=== PATIENT | male | born 1950 | race Caucasian/White ===

== ENCOUNTER 2020-11-15 12:00 | Emergency (ER) | payer MEDICARE, OTHER, SELFPAY ==
--- NOTE | 2020-11-15 12:20 | ED.ABDPAIN ---
HPI - Abdominal Pain General Chief Complaint: Abdominal Pain Stated Complaint: abdominal pain Time Seen by Provider: 11/15/20 12:20 Source: patient Mode of arrival: ambulatory Limitations: no limitations History of Present Illness HPI narrative: David Connelly is a 70 yo male with a PMH of prostate cancer and radiation, high cholesterol, GERD, seasonal allergies, diabetes , HTN, who comes to [facility] for evaluation of right lower quadrant pain that started 2 days ago his twinge in his today has intensified to a 9 out of 10. Patient has no urinary symptoms there has been no change in his bowel movements he is not been vomiting nor is he having nausea Related Data Home Medications Medication Instructions Recorded Confirmed pen needle, diabetic 32 gauge x #50 each 07/07/19 08/21/20 1/ Vitamin D3 07/08/19 08/21/20 vitamin B complex cap 07/08/19 08/21/20 blood sugar diagnostic #10 each 08/10/19 08/21/20 enzalutamide 40 mg capsule 160 mg PO DAILY 12/14/19 08/21/20 leuprolide (6 month) 45 mg 45 mg IM [id number] 12/14/19 08/21/20 intramuscular syringe kit Allergies Allergy/AdvReac Type Severity Reaction Status Date / Time acetaminophen Allergy Mild Unknown Verified 11/15/20 12:06 hydrocodone Allergy Mild UN KNOWN Verified 11/15/20 12:06 Review of Systems Review of Systems: Narrative: CONSTITUTIONAL: Denies fever, chills, sweats. EYES: Denies visual changes, redness, discharge. ENT: Denies rhinorrhea, congestion, sore throat, otalgia. CARDIOVASCULAR: Denies chest pain, palpitations, edema. RESPIRATORY: Denies dyspnea, wheezing, cough GASTROINTESTINAL: Has abdominal pain, no nausea, vomiting, diarrhea. GENITOURINARY: Denies dysuria, hematuria, abnormal discharge SKIN: Denies rash or itching. NEUROLOGIC: Denies numbness, or focal weakness. PSYCHIATRIC: Denies anxiety or depression. [facility] Past Medical History Medical History Anemia Arthritis Diabetes GERD (gastroesophageal reflux disease) Hearing loss High cholesterol Hypercalcemia Insomnia Iron deficiency anemia, unspecified Lymphedema Prostate cancer Psoriasis Renal insufficiency, mild Vision loss Family History Family History Other Hypertension Social History Social History Smoking status: Never smoker Alcohol intake: current Comments At time of signature, I agree with nursing past medical, surgical, social and family history. There is no relevant family history pertinent to the presenting complaint. Exam Narrative: Exam Narrative: GENERAL: This is a well-nourished, well-developed patient, in moderate distress when walking, uses cane, older appearing gentleman HEAD: normocephalic, atraumatic. EYES: PERRL. Sclera clear/white. Vision is grossly intact. EARS: External ears normal, auditory canals clear and without drainage, TMs normal without perforation. Hearing grossly intact. NOSE: External nose normal without nasal discharge, nares without redness, no rhinorrhea. THROAT: Mucous membranes moist, posterior pharynx NECK: Neck supple, non-tender CARDIOVASCULAR: Regular rate and rhythm without murmurs, gallops, or rubs. RESPIRATORY: Clear to auscultation. Breath sounds equal bilaterally. No wheezes, rales, or rhonchi. GASTROINTESTINAL: Abdomen soft, non-tender, has pain lying down or sitting up has a has mesenteric irritation; pain standing up and lower right abdomen not in leg or back SKIN: warm, intact with no suspicious lesions or rash, good texture and turgor. NEURO: awake, alert, and oriented to person, place and time. There were no obvious focal neurologic abnormalities. Steady gait EXTREMITIES: Normal range of motion. BACK: Nontender without deformity Course Course Emergency Course: 70-year-old male came to [facility] with multiple comorbidities for evaluation of right
[2020-11-15 12:29] VITALS: BP 172/68; PULSE 75; RESP 16; TEMP 36; O2SAT 100
[2020-11-15 12:59] VITALS: BP 172/68; PULSE 75; RESP 16; TEMP 36; O2SAT 100
== END 2020-11-15 12:55 | disposition short-term general hospital (02) ==
PROVIDERS: Emergency Provider Nurse Practitioner; PCP Family Medicine
DX: R10.31 Right lower quadrant pain (principal); M19.90 Unspecified osteoarthritis, unspecified site; E11.9 Type 2 diabetes mellitus without complications; K21.9 Gastro-esophageal reflux disease without esophagitis; E78.00 Pure hypercholesterolemia, unspecified; Z85.46 Personal history of malignant neoplasm of prostate; Z92.3 Personal history of irradiation
CPT/HCPCS: 81003; 99212; G0463

== ENCOUNTER 2020-11-15 13:18 | Emergency (ER) | payer MEDICARE, OTHER, SELFPAY ==
[2020-11-15] VITALS (17 sets, daily range): BP systolic 148–165; BP diastolic 52–78; PULSE 61–72; RESP 12–19; TEMP 35.9; O2SAT 96–100
--- NOTE | ~2020-11-15 | CT_ITS ---
EXAMINATION: CT abdomen pelvis w con DATE: 11/15/2020 14:22 INDICATION: Right lower quadrant pain for 2 days TECHNIQUE: Computed tomography (CT) of the abdomen and pelvis was performed with 100 cc Omnipaque 350 intravenous contrast. The dose-length product was 1322.82 mGy-cm. Automated exposure control and ite rative reconstruction technique were employed. COMPARISON: CT dated 02/20/2027 2. FINDINGS: There is right basilar atelectasis. Heart size is normal. No significant pleural or pericar dial effusion. No significant vascular abnormality. Fatty infiltration of the liver. The spleen, pancreas, adrenal glands and right kidney are unremarkab le. There is a 4 cm left renal cyst. No significant vascular abnormality. There are radiation therapy implant seeds in the prostate bed. No lymphadenopathy. Nonobstructive bowel gas pattern. There are s acral insufficiency fractures. There is fusion at L3-L5. There is severe lumbar spondylosis. Elevated right diaphragm. No free air or free fluid. There are gallstones. IMPRESSION: 1. No acute abdominal abnormality. 2: Bilateral sacral insufficiency fractures. 3: Cholelithiasis. Reviewed, dictated and finalized at location A.
--- NOTE | ~2020-11-15 | XR_ITS ---
EXAMINATION: XR chest 1V 11/15/2020 14:29 INDICATION: Hypertension. Bradycardia. PROCEDURE: AP view of the chest COMPARISON: 09/14/2007 FINDINGS: The lungs are clear. The cardiomediastinal silhouette is within normal limits. There are no pleural effusions. There is no pneumothorax suspected. There is advanced osteoarthritis of the l eft glenohumeral joint. IMPRESSION: 1: NO ACUTE CARDIOPULMONARY DISEASE. Reviewed, dictated and finalized at location A.
--- NOTE | 2020-11-15 13:51 | ED.ABDPAIN ---
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 Worse with standing, better laying down flat. Patient denies any fever, nausea, vomiting, diarrhea, constipation, urinary symptoms, radiation of pain. Patient denies any history of abdominal surgery. History of prostatic cancer status post chemotherapy, radiation therapy, currently on hormonal therapy. History of diabetes, hypertension, hyperlipidemia, sleep apnea. Also history of spinal fusion years ago patient does not smoke or drink. Related Data Home Medications Medication Instructions Recorded Confirmed pen needle, diabetic 32 gauge x #50 each 07/07/19 08/21/20/ Vitamin D3 07/08/19 08/21/20 vitamin B complex 1 cap PO DAILY 07/08/19 08/21/20 blood sugar diagnostic #10 each 08/10/19 08/21/20 enzalutamide 40 mg capsule 160 mg PO DAILY 12/14/19 11/15/20 leuprolide (6 month) 45 mg 45 mg IM [id number] 12/14/19 11/15/20 intramuscular syringe kit Allergies Allergy/AdvReac Type Severity Reaction Status Date / Time acetaminophen Allergy Mild Unknown Verified 11/15/20 12:06 hydrocodone Allergy Mild UN KNOWN Verified 11/15/20 12:06 Review of Systems Review of Systems: Narrative: CONSTITUTIONAL: Denies fever, chills, or sweats. EYES: Denies visual changes, redness, or discharge. ENT: Denies rhinorrhea, congestion, sore throat, or otalgia. CARDIOVASCULAR: Denies chest pain, palpitations, or edema. RESPIRATORY: Denies cough or dyspnea. GASTROINTESTINAL: Denies abdominal pain, nausea, vomiting, or diarrhea. GENITOURINARY: Denies dysuria or hematuria. SKIN: Denies rash or itching. MUSCULOSKELETAL: Denies back pain, joint pain, or myalgia. NEUROLOGIC: Denies headache, numbness, or weakness. PSYCHIATRIC: Denies anxiety or depression. [facility] Past Medical History Medical History Anemia Arthritis Diabetes GERD (gastroesophageal reflux disease) Hearing loss High cholesterol Hypercalcemia Insomnia Iron deficiency anemia, unspecified Lymphedema Prostate cancer Psoriasis Renal insufficiency, mild Vision loss Family History Family History Other Hypertension Social History Social History Smoking status: Never smoker Alcohol intake: current Exam Narrative: Exam Narrative: General appearance: Well-developed, well-nourished Skin: Normal color Head: Normocephalic, nontraumatic Eyes: Clear conjunctiva ENT: Oropharynx normal, ears normal, nose normal Neck: Supple, nontender Chest and respiratory: Airway patent, no respiratory distress, no accessory muscle use Heart: Bradycardia Abdomen: Soft, nontender, no organomegaly, quiet bowel sounds Vascular: Normal peripheral pulses, normal capillary refill. 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
[2020-11-15 13:53] LABS: Basophils Percent Auto 0.4 % (0.2-1.2); Eosinophils Absolute Auto 0.2 K/mm3 (0-0.3); Eosinophils Percent Auto 4.3 % (0-4.4); Hematocrit 36.1 % (42.0-52.0); Hemoglobin 11.8 g/dL (14.0-18.0); Immature Granulocyte Absolute 0.05 K/mm3 (0.00-0.031); Immature Granulocyte Percent A 0.9 % (0-0.5); Lymphocytes Absolute Auto 0.57 K/mm3 (0.9-3.2); Lymphocytes Percent Auto 10.3 % (18.3-44.2); Mean Corpuscular HGB Conc 32.7 g/dl (32-36); Mean Corpuscular Hemoglobin 29.5 pg (26-34); Mean Corpuscular Volume 90.3 fl (80-100); Mean Platelet Volume 8.8 fl (7.4-10.4); Monocytes Absolute Auto 0.6 K/mm3 (0.1-0.6); Monocytes Percent Auto 9.9 % (2.6-8.5); Neutrophils Absolute Auto 4.1 K/mm3 (1.3-6.7); Neutrophils Percent Auto 74.2 % (45.5-73.1); Platelet Count Result 210 k/mm3 (150-375); Red Cell Distribution Width 13.8 % (11.5-14.5); White Blood Count 5.5 K/mm3 (4.5-10.0)
--- NOTE | 2020-11-15 13:55 | ECG_ITS ---
Measurements Intervals [place] Rate: 63 P: 25 MT: 151 QRS: -12 QRSD: 94 T: 15 QT: 396 QTc: 408 Interpretive Statements SINUS RHYTHM VOLTAGE CRITERIA FOR LVH MINIMAL Q WAVES- HIGH LATERAL LEADS BORDERLINE ECG Electronically Signed On 11-15-2020 14:31:01 CDT by Tariq Grayson D.O.
[2020-11-15 14:04] LABS: Alanine Aminotransferase 22 U/L (4-50); Albumin Level 4.1 g/dL (3.5-5.1); Alkaline Phosphatase 59 U/L (38-126); Anion Gap 9 mmol/L (8-16); Aspartate Amino Transferase 27 U/L (17-59); Bilirubin,Total 0.4 mg/dL (0.2-1.3); Blood Urea Nitrogen 27 mg/dL (9-20); Calcium 9.5 mg/dL (8.4-10.2); Carbon Dioxide 27 mmol/L (22-30); Chloride 103 mmol/L (98-107); Estimated CRCL calculation 55 ml/min; Estimated Glomerular Filt Rate 54; Glucose 132 mg/dL (75-110); Lipase 309 U/L (23-300); Sodium 139 mmol/L (137-145)
[2020-11-15] MEDS: SODIUM CHLORIDE 0.9% IV 1,000 ML 999 ML IV CONT (14:38)
[2020-11-15 16:20] LABS: Add Urine Microscopic? YES; Appearance Urine Clear (Clear); Bilirubin Urine Negative (Negative); Blood Urine Negative (Negative); Color Urine Straw (Yellow); Glucose Urine UA Negative (Negative); Ketones Urine Negative (Negative); Leukocyte Esterase Ur Negative LEU/UL (Negative); Nitrate Urine Negative (Negative); Protein Urine Negative (Negative); RBC Urine 0-2 /hpf (0-2); Specific Grav Ur 1.021 (1.001-1.035); Urobilinogen Urine Negative mg/dL (<2.0); WBC Urine 0-3 /hpf
== END 2020-11-15 17:05 | disposition home or self-care (01) ==
PROVIDERS: Emergency Provider Emergency Medicine; PCP Family Medicine
DX: R10.31 Right lower quadrant pain (principal); D64.9 Anemia, unspecified; M19.90 Unspecified osteoarthritis, unspecified site; E11.9 Type 2 diabetes mellitus without complications; K21.9 Gastro-esophageal reflux disease without esophagitis; E78.5 Hyperlipidemia, unspecified
CPT/HCPCS: 36415; 71045; 74177; 80053; 81001; 81003; 83690; 84443; 85025; 93005; 96360; 99284; J7030; Q9967

== ENCOUNTER 2020-12-17 17:19 | Outpatient (CLI) | payer MEDICARE, OTHER, SELFPAY ==
--- NOTE | ~2020-12-17 | MR_ITS ---
EXAMINATION: MR shoulder LT wo con DATE: 12/17/2020 18:19 INDICATION: Left shoulder pain TECHNIQUE: Magnetic resonance imaging (MRI) of the left shoulder was performed without intravenous co ntrast. Sequences included axial PD-weighted FS FSE, coronal oblique PD-weighted FS FSE, coronal obli que T2-weighted FS FSE, sagittal PD-weighted FS FSE, and sagittal T1-weighted SE. COMPARISON: None. FINDINGS: Coracoacromial arch: The acromion undersurface is curved in morphology (type II). The coracoacromial ligament is normal. M ild to moderate acromioclavicular osteoarthritis with small inferiorly directed osteophytes at the la teral head of the clavicle. Rotator cuff: Mild supraspinatus and infraspinatus tendinopathy without discrete tear. The teres minor tendon is no rmal. Mild subscapularis tendinopathy with very small delaminating split tear along the cephalad less er tuberosity footplate. Normal rotator cuff muscle bulk and signal. Biceps tendon, glenoid labrum and glenohumeral cartilage: Moderate tendinopathy without discrete tear of the intra-articular long head biceps tendon. Diffuse l abral degeneration and advanced glenohumeral osteoarthritis with extensive full to near full-thicknes s cartilage loss with scattered subcutaneous articular cystic changes throughout the glenoid and peyman ral head. Small to moderate-sized marginal osteophytes about the humeral head and glenoid. Fluid: Physiologic amount of fluid in the glenohumeral joint and biceps tendon sheath. No loose osteochondra l bodies. Very small amount of fluid in the subacromial/subdeltoid bursa consistent with minimal burs itis. Bones: Bone alignment is normal. No fracture or pathologic marrow replacing process. IMPRESSION: 1. Advanced left glenohumeral osteoarthritis with diffuse degenerative tearing of the glenoid labrum. 2. Mild supraspinatus, infraspinatus and subscapularis tendinopathy with very small delaminating spli t tear at the lesser tuberosity insertion of the subscapularis tendon. 3. Moderate tendinopathy without discrete tear of the intra-articular long head biceps tendon. 4. Mild to moderate acromioclavicular osteoarthritis with minimal underlying subacromial/subdeltoid b ursitis. Reviewed, dictated and finalized at location A. IMPRESSION: 1. Advanced left glenohumeral osteoarthritis with diffuse degenerative tearing of the glenoid labrum. 2. Mild supraspinatus, infraspinatus and subscapularis tendinopathy with very s mall delaminating split tear at the lesser tuberosity insertion of the subscapu rocky tendon. 3. Moderate tendinopathy without discrete tear of the intra-articular long head biceps tendon. 4. Mild to moderate acromioclavicular osteoarthritis with minimal underlying zheng bacromial/subdeltoid bursitis.
== END 2020-12-17 17:20 | disposition home or self-care (01) ==
PROVIDERS: PCP Family Medicine; Visit Provider Orthopaedic Surgery
DX: M25.512 Pain in left shoulder (principal); M19.012 Primary osteoarthritis, left shoulder; M75.82 Other shoulder lesions, left shoulder; S46.812A Strain of other muscles, fascia and tendons at shoulder and upper arm level, left arm, initial encounter; M75.52 Bursitis of left shoulder
CPT/HCPCS: 73221

== ENCOUNTER 2020-12-27 15:13 | Outpatient (CLI) | payer MEDICARE, OTHER, SELFPAY ==
--- NOTE | ~2020-12-27 | US_ITS ---
EXAMINATION: US carotid duplex BI DATE: 12/27/2020 16:01 INDICATION: Right carotid bruit. TECHNIQUE: Grayscale, color Doppler, and pulsed Doppler images of the cervical carotid arteries were obtained. The degree of vessel stenosis is placed in one of the following categories: normal, <50%, 5 0-69%, >=70% but less than near-occlusion, near-occlusion, or total occlusion. Note that percent sten osis relative to normal distal artery lumen diameter is indirectly measured from velocity measurement s as described by Kenny, et al. Radiology 2003; 229:340-346. COMPARISON: None. FINDINGS: RIGHT: The right common carotid artery (CCA) peak systolic velocity (PSV) is 88 cm/s. The right internal car otid artery (ICA) PSV is 238 cm/s. The right ICA end-diastolic velocity (EDV) is 44 cm/s. The right I CA/CCA PSV ratio is 2.7. Grayscale and color Doppler images yield an estimate of <50% diameter reduct ion from plaque in the ICA. There is antegrade flow in the right vertebral artery. LEFT: The left CCA PSV is 79 cm/s. The left ICA PSV is 248 cm/s. The left ICA EDV is 50 cm/s. The left ICA/ CCA PSV ratio is 3.2. Grayscale and color Doppler images yield an estimate of <50% diameter reduction from plaque in the ICA. There is antegrade flow in the left vertebral artery. IMPRESSION: 1. <50% stenosis in the right internal carotid artery. 2. <50% stenosis in the left internal carotid artery. Reviewed, dictated and finalized at location A.
== END 2020-12-27 15:14 | disposition home or self-care (01) ==
PROVIDERS: PCP Family Medicine; Visit Provider Family Medicine
DX: R09.89 Other specified symptoms and signs involving the circulatory and respiratory systems (principal); I65.23 Occlusion and stenosis of bilateral carotid arteries
CPT/HCPCS: 93880

== ENCOUNTER 2021-01-04 12:30 | Outpatient (RCR) | payer MEDICARE, OTHER, SELFPAY ==
--- NOTE | 2020-12-06 11:18 | PTOPEVAL ---
PHYSICAL THERAPY EVALUATION AND PLAN OF CARE 12-06-20 The PT evaluation has been completed for the diagnosis of B LE lymphedema. The treatment plan is scheduled for 3x/week for 5 weeks. Thank you for referring David Connelly to [facility].? Please review, sign, date and return this plan of care JOSIE. I agree with and certify that the following plan of care is medically necessary. Referring Physician Date Attending Provider: Sofia Hilton APN Referring Provider: Gibson Segura MD *PT Outpatient Evaluation Document 12/06/20 10:10 S[place] (Rec: 12/06/20 11:18 SAGRARIO [id number]) Outpatient Past Medical History Past Medical History Source of Past Medical History Recalled from Previous Visit, Confirmed with Patient/Family Neurological History Hx Other Neurological Disorders Yes: neuropathy of B LE- feet Cardiovascular History Hx Hypercholesterolemia Yes: meds Hx Hypertension Yes: meds Respiratory History Hx Sleep Apnea Yes: CPAP Musculoskeletal History Hx Arthritis Yes: B shoulder arthritis Hx Back Pain Yes Hx Crutches or Walker Use Yes Query Text:If Yes, Enter Crutches, Walker, or Both in the Comment Hx Joint Replacement Yes: R TKR Hx Spinal Surgery Yes: BACK FUSION L 2-3-4 Hx Other Musculoskeletal Disorders Yes: R hip pain Hematological History Hx Anemia Yes Endocrine History Hx Diabetes Yes: good controlf HEENT History Hx Cataracts Yes: no surgery Other History Hx Cancer Yes: prostate, radiation '17; therapy for decr testosterone Hx Radiation Therapy Yes: for prostate cancer Hx Other Medical Conditions Yes: have had COVID vaccine Evaluation Information Problem Diagnosis lymphedema of B LE's Onset February 2020 Prior Level of Function Activity Level (Last 3 Months) Occupation retired Activity of Daily Living Ability Independent Indoor/Home Mobility Independent Community Mobility Independent Stairs Ability Independent Functional Cognition (Planning, Shopping Independent , Taking Medications) Cooking Yes Cleaning Yes Laundry Yes Shopping Yes Driving Yes Home Setting Home Type House Living Situation With Spouse Mobility Assistive Devices (Used Last 3 Cane,Walker, Rollator Months) Comments Additional Prior Level of Function assist with home tasks, Comments carrying and heavier tasks; indep with bathing, dressing,
--- NOTE | 2021-01-07 13:47 | PCPTNOTE ---
PHYSICAL THERAPY DISCHARGE 01-07-21 Attending Provider: Sofia Hilton NP Patient:David Connelly Date of :1950 Mr. Connelly has received a total of 12 PT sessions, for the diagnosis of B LE lymphedema, from December 06 to January 04. Circumferential measurements of LE's: from the bottom of his foot up to 72 cm: R LE is 754 cm, decreased by 24.3 cm and L LE is 753.5 cm, decreased by 51.3 cm, compared to the initial evaluation. Skin observation: His skin color is good, without any fibrosis or firmness of the tissue. Compression garments: Sam has a R and L lower leg Circaid Juxtafit [employer]entials lower leg compression garment. He is independent with it. Education: Education has been completed for skin care, compression garment, self manual lymph drainage, lymphedema diagnosis. He demonstrated a good understanding and knowledge of the information. The goals have been achieved, except circumferential measurement of the R LE. Thank you for referring Mr. Connelly to [facility]. Please review, sign, date and return this discharge summary JOSIE. I have been updated about the patient's current status and I agree with discharge from the above service at this time. Referring Physician Date
== END 2021-01-08 08:29 | disposition home or self-care (01) ==
LOC: ANHPT 12:30
PROVIDERS: PCP Family Medicine; Referring Provider Family Medicine; Visit Provider Nurse Practitioner Family
DX: I89.0 Lymphedema, not elsewhere classified (principal)
CPT/HCPCS: 29581; 97016; 97140; 97161

== ENCOUNTER → 2022-12-12 11:01 | Outpatient (CLI) | payer MEDICARE, SELFPAY ==
--- NOTE | ~2022-12-12 | DEXA_ITS ---
Bone Density Report Name: MARILYN BOX Age: 72 Sex: Male Ethnicity: White Date of : 1950 Indication: screening for osteoporosis; height loss; prior fracture; cancer; Referring Provider: YEN CUEVAS Study: Bone densitometry was performed. Exam Date: December 12, 2022 Accession number: [id number] Bone Density: Region BMD T-score Z-score Classification AP Spine (L1, L2) 1.306 2.3 3.3 Normal Femoral Neck (Left) 1.075 1.1 2.4 Normal Total Hip (Left) 1.165 0.9 1.7 Normal Femoral Neck (Right) 1.074 1.1 2.4 Normal Total Hip (Right) 1.142 0.7 1.5 Normal Total Hip Mean 1.154 0.8 1.6 Normal World Health Organization criteria for BMD impression classify patients as: Normal (T-score at or above -1.0), Osteopenia (T-score between -1.0 and -2.5), or Osteoporosis (T-score at or below -2.5). 10-year Fracture Risk: FRAX not reported because: All T-scores for Spine Total, Hip Total, Femoral Neck at or above -1.0 Prior hip or vertebral fracture Clinical Information Provided by Patient: Have had a previous hip or vertebral fracture Has had a low trauma fracture Has used the following medications: Vitamin D, med to decrease testosterone Has the following medical conditions: Cancer, prostate cancer, current treatment x 5 years Patient maximum height was 71 No regular weight bearing exercise Drinks caffeinated beverages Impression: The patient has normal bone mass. The patient has risk factors, including: previous fracture. Discussion: INCREASED RISK OF FRACTURE DUE TO HISTORY OF LOW TRAUMA FRACTURE. The patient's previous fracture puts the patient at high risk of a future fracture. In untreated patients, the risk of osteoporotic fracture increases approximately two-fold for each 1.0 SD decrease in T-score. Low bone density is not the only risk factor for fracture; also consider factors such as patient's age, frailty or poor health, risk of falling, risk of injury, previous osteoporotic fracture, family history of osteoporosis, cigarette smoking, low body weight, etc. Not everyone with a low trauma fracture has osteoporosis; osteomalacia and other metabolic bone disorders should also be considered. Patients who have osteoporosis should be evaluated for specific diseases and conditions (secondary causes) that may cause or contribute to bone loss and fracture risk. National Osteoporosis Foundation (NOF) recommends pharmacologic intervention for patients with a prior low trauma hip or vertebral fracture regardless of BMD T-score. The patient should follow a healthful lifestyle (good nutrition with adequate calcium and vitamin D, and appropriate weight-bearing exercise). Follow-Up: Consider a repeat BMD and Vertebral Fracture Assessment (VFA) exam in 2 years or sooner if medically necessary, to reassess
== END ==
PROVIDERS: PCP Family Medicine; Visit Provider Nurse Practitioner Adult Health
DX: M85.88 Other specified disorders of bone density and structure, other site (principal)
CPT/HCPCS: 77080

== ENCOUNTER 2023-02-17 09:00 | Outpatient (CLI) | payer MEDICARE, SELFPAY ==
--- NOTE | 2023-02-17 | EST_ITS ---
Patient Info Name: David Connelly Age: 72 years : 1950 Gender: Male Ht: 68 in Wt: 232 lbs BSA: 2.29 m2 HR: 60 bpm BP: 176 / 85 mmHg Heart Rhythm: Sinus Rhythm Exam Date: 02/17/2023 10:10 AM Exam Location: [facility] Stress Patient Status: Outpatient Admit Date: 02/17/2023 Staff Ordering Physician: Tariq Grayson DO Attending Provider: Tariq Grayson DO Exercise Technologist: Heide Arthur CT Exercise Physician: Tariq Grayson DO Exam Type: CA stress cuate w NM Study Info Indications R06.09 - Other forms of dyspnea A regadenoson stress test was performed. Summary 1. 1. Negative lexiscan stress test for ischemic ST changes by ECG criteria. 2. 2. Baseline hypertension. 3. 3. Nuclear scan to follow and will be reported separately. Please correlate with it. 4. 4. Patient informed of the above results. Protocol: Lexiscan Stress ECG Details Stage: REST Duration (min): 2 min : 15 sec HR (bpm): 58 SBP (mmHg): 190 DBP (mmHg): 87 Stage: REST Duration (min): 15 min : 41 sec HR (bpm): 60 SBP (mmHg): 176 DBP (mmHg): 85 Stage: STAGE 1 Duration (min): 0 min : 59 sec HR (bpm): 78 SBP (mmHg): 175 DBP (mmHg): 63 Stage: RECOVERY Duration (min): 1 min : 0 sec HR (bpm): 77 SBP (mmHg): 175 DBP (mmHg): 63 Stage: RECOVERY Duration (min): 2 min : 0 sec HR (bpm): 66 SBP (mmHg): 175 DBP (mmHg): 63 Stage: RECOVERY Duration (min): 3 min : 0 sec HR (bpm): 62 SBP (mmHg): 159 DBP (mmHg): 69 Stage: RECOVERY Duration (min): 3 min : 24 sec HR (bpm): 78 SBP (mmHg): 159 DBP (mmHg): 69 Rest HR: 60 bpm Peak HR: 81 bpm Rest Sys BP: 176 mmHg Peak Sys BP: 175 mmHg Max Pred HR: 146 bpm % Max Pred HR: 55 % Target HR: 124 bpm Max RPP: 14,175 bpm*mmHg Termination Reason: Completed protocol Cardiac Symptoms: Shortness of breath Total Time: 1 min : 0 sec Rest Mathew BP: 85 mmHg Peak Mathew BP: 63 mmHg Total Dose: 0.4 mg Resting ECG Sinus rhythm. Stress ECG No ST changes. Arrhythmias None. Report Signatures
--- NOTE | ~2023-02-17 | NM_ITS ---
EXAMINATION: NM cuate stress w perfusion DATE: 02/17/2023 11:22 INDICATION: Dyspnea on exertion TECHNIQUE: Rest images were obtained following intravenous administration of 9.6 mCi Tc99m tetrofosmi n (Myoview). The patient was infused intravenously with Lexiscan (Regadenoson). Then, 29.4 mCi Tc99m tetrofosmin (Myoview) was administered intravenously, and stress images were obtained. Patient was un able to tolerate prone imaging. Data was reconstructed into short axis and horizontal and vertical lo ng axis SPECT images. Gated SPECT images were also obtained. COMPARISON: None. FINDINGS: Small moderate severity fixed perfusion defect centered at the mid inferolateral segment. N o definitive reversible ischemia. There is normal left ventricular chamber size, wall motion and eje ction fraction. Left ventricular ejection fraction measures >70%. IMPRESSION: 1. Small moderate severity fixed perfusion defect consistent with infarct at the mid inferolateral se gment with no definitive reversible ischemia. 2. Left ventricular ejection fraction measuring >70%. Reviewed, dictated and finalized at location A. IMPRESSION: 1. Small moderate severity fixed perfusion defect consistent with infarct at th e mid inferolateral segment with no definitive reversible ischemia. 2. Left ventricular ejection fraction measuring >70%.
== END 2023-02-17 09:01 | disposition home or self-care (01) ==
PROVIDERS: PCP Family Medicine; Visit Provider Internal Medicine Cardiovascular Disease
DX: R06.00 Dyspnea, unspecified (principal); R94.39 Abnormal result of other cardiovascular function study
CPT/HCPCS: 78452; 93017; A9502; J2785

== ENCOUNTER 2023-02-21 07:40 | Outpatient (CLI) | payer MEDICARE, SELFPAY ==
--- NOTE | 2023-02-21 07:51 | ECHO_ITS ---
Patient Info Name: David Connelly Age: 72 years : 1950 Gender: Male Ht: 70 in Wt: 232 lbs BSA: 2.31 m2 HR: 62 bpm BP: 189 / 84 mmHg Heart Rhythm: Sinus Rhythm Technical Quality: Fair Exam Date: 02/21/2023 8:26 AM Exam Location: [facility] Pulmonary Patient Status: Outpatient Admit Date: 02/21/2023 Staff Ordering Physician: Tariq Grayson DO Teaching Associate: Andrew Gomez RDCS Attending Provider: Tariq Grayson DO Referring Physician: Kenan MANCILLA; Exam Type: CA echo doppler color flow Study Info Indications - other form of dyspnea Complete two-dimensional, color flow and Doppler transthoracic echocardiogram is performed. Summary 1. Complete two-dimensional, color flow and Doppler transthoracic echocardiogram is performed. 2. Left ventricular chamber dimension is normal. 3. Left ventricular systolic function is normal, estimated at 60-65%. 4. There is moderate concentric increased left ventricular wall thickness. 5. The left ventricular diastolic function is grade I diastolic dysfunction. 6. E/e' 12 is mildly elevated. 7. Left atrial chamber dimension is moderately enlarged. 8. There is moderate aortic valve sclerosis. 9. The mitral valve has moderately calcified annulus. 10. There is trace mitral valve regurgitation. 11. No pulmonary hypertension, estimated pulmonary arterial systolic pressure is 8 mmHg. Left Ventricle E/e' 12 is mildly elevated. Left ventricular chamber dimension is normal. Left ventricular systolic function is normal, estimated at 60-65%. There is moderate concentric increased left ventricular wall thickness. The left ventricular diastolic function is grade I diastolic dysfunction. Right Ventricle Right ventricular systolic function is normal and with normal TAPSE 2.3 cm. Right ventricular chamber dimension is normal. Left Atria Left atrial chamber dimension is moderately enlarged. Right Atria Right atrial chamber dimension is normal. Aortic Valve The aortic valve is trileaflet. There is moderate aortic valve sclerosis. There is no aortic valve stenosis. There is no aortic valve regurgitation. Pulmonic Valve There is no pulmonic regurgitation. Mitral Valve The mitral valve has moderately calcified annulus. There is no mitral valve stenosis. There is trace mitral valve regurgitation. Tricuspid Valve There is no tricuspid valve regurgitation. No pulmonary hypertension, estimated pulmonary arterial systolic pressure is 8 mmHg. Pericardium/Pleural There is no pericardial effusion. Inferior Vena Cava Normal inferior vena cava with >50% collapse upon inspiration consistent with normal right atrial pressure, 5 mmHg. Aorta The aortic root size at the sinus of Valsalva is normal. Left Ventricular Outflow Tract Name Value Normal LVOT 2D LVOT Diameter 2.1 cm LVOT Doppler LVOT Peak Gradient 4 mmHg LVOT Mean Gradient 2 mmHg LVOT VTI 32 cm LVOT VTI/AV VTI Ratio 0.9 LVOT Stroke Volume 108 ml LVOT CO 5.7 l/min LVOT CI 2.5 l/min/m2 Pulmonic Va
== END 2023-02-21 07:41 | disposition home or self-care (01) ==
LOC: ANHCARD 07:41
PROVIDERS: PCP Family Medicine; Visit Provider Internal Medicine Cardiovascular Disease
DX: R06.09 Other forms of dyspnea (principal); I34.0 Nonrheumatic mitral (valve) insufficiency; I35.1 Nonrheumatic aortic (valve) insufficiency
CPT/HCPCS: 93306

== ENCOUNTER 2023-04-24 15:43 | Observation (INO) | payer MEDICARE, SELFPAY ==
[2023-04-24] VITALS (10 sets, daily range): BP systolic 117–133; BP diastolic 49–61; PULSE 51–66; RESP 14–21; TEMP 36.3–36.7; O2SAT 99–100; BMI 30.2
--- NOTE | ~2023-04-24 | CT_ITS ---
EXAMINATION: CT abdomen pelvis wo con DATE: 04/24/2023 19:11 INDICATION: Abdominal pain. Diarrhea. TECHNIQUE: Computed tomography (CT) of the abdomen and pelvis was performed without intravenous contr ast. Automated exposure control and iterative reconstruction technique were employed. The dose-length product was 968.92 mGy-cm. COMPARISON: CT abdomen and pelvis 11/15/2020 FINDINGS: The visualized portions of the lung bases demonstrate mild atelectasis. No pleural effusion . The heart size is normal. No pericardial effusion. There are coronary artery calcifications. There is diffuse hepatic steatosis. The gallbladder, spleen, pancreas, adrenal glands, and right kidney are normal. There is a 4.0 cm cyst in left kidney. There is no urolithiasis. There are brachytherapy see ds in the prostate. There is diverticulosis of the colon without evidence of diverticulitis. There ar e no dilated loops of bowel. The appendix is normal. Aortic atherosclerosis is noted. There are no pa thologically enlarged lymph nodes. There is no free intraperitoneal fluid. There are bilateral inguin al hernias containing fat. Osteitis pubis is noted. There are healing insufficiency fractures involvi ng the sacrum and bilateral iliac bones. There is severe lumbar spondylosis. There are changes of pos terior fusion procedure from L3 to L5. IMPRESSION: 1. Bilateral inguinal hernias containing fat. Reviewed, dictated and finalized at location E.
--- NOTE | ~2023-04-24 | US_ITS ---
EXAMINATION: US right upper quadrant DATE: 04/25/2023 08:59 INDICATION: Right upper quadrant pain TECHNIQUE: Multiple grayscale and Doppler ultrasound images of the abdomen were obtained. COMPARISON: CT from yesterday FINDINGS: Bowel gas obscures visualization of the pancreas. The visualized portions of the pancreas a re unremarkable. The liver is normal with normal echogenicity and echotexture. No surface nodularity. Normal hepatopetal flow in the main portal vein. The gallbladder is normal with no abnormal wall thi ckening, pericholecystic fluid or stones. Bowel gas obscures visualization of the common bile duct. T here was no sonographic Alfaro sign. IMPRESSION: 1. Normal sonographic study of the gallbladder. Reviewed, dictated and finalized at location A.
--- NOTE | ~2023-04-24 | US_ITS ---
Renal-Bladder ultrasound Clinical History: Acute renal insufficiency Technique: Real-time sonographic imaging of the kidneys and urinary bladder was performed. Findings: The right kidney measures 10.8 cm in length and the left kidney measures 11.8 cm. There is no hydronephrosis or renal calculus identified. Renal cortical echogenicity is within normal limits. Left renal cyst noted. The urinary bladder is moderately distended at the time of this exam. No intraluminal echoes are iden tified. No abnormal wall thickening is seen. Impression: Unremarkable ultrasound of the kidneys and urinary bladder. Reviewed, dictated and finalized at location . Impression: Unremarkable ultrasound of the kidneys and urinary bladder.
[2023-04-24 16:21] LABS: Alanine Aminotransferase 19 U/L (6-50); Albumin Level 4.2 g/dL (3.5-5.1); Alkaline Phosphatase 52 U/L (38-126); Anion Gap 12 mmol/L (8-16); Aspartate Amino Transferase 28 U/L (17-59); Bilirubin,Total 0.5 mg/dL (0.2-1.3); Blood Urea Nitrogen 56 mg/dL (9-20); Calcium 9.6 mg/dL (8.4-10.2); Carbon Dioxide 22 mmol/L (22-30); Chloride 101 mmol/L (98-107); Estimated CRCL calculation 30 ml/min; Estimated Glomerular Filt Rate 28; Glucose 131 mg/dL (65-110); Lipase 607 U/L (23-300); Potassium 5.6 mmol/L (3.4-5.0); Sodium 135 mmol/L (137-145)
[2023-04-24 16:39] LABS: Appearance Urine Clear (Clear); Bilirubin Urine Negative (Negative); Blood Urine Negative (Negative); Color Urine Yellow (Yellow); Glucose Urine UA 3+ mg/dL (Negative); Ketones Urine Trace mg/dL (Negative); Leukocyte Esterase Ur Negative LEU/UL (Negative); Nitrate Urine Negative (Negative); Protein Urine Negative (Negative); Specific Grav Ur 1.024 (1.001-1.035); Urobilinogen Urine 0.2 mg/dL (<2.0)
[2023-04-24 16:44] LABS: Add Urine Microscopic? NO
[2023-04-24 16:48] LABS: Basophils Percent Auto 0.5 % (0.2-1.2); Eosinophils Absolute Auto 0.2 K/mm3 (0-0.3); Eosinophils Percent Auto 2.7 % (0-4.4); Hematocrit 39.6 % (42.0-52.0); Hemoglobin 12.8 g/dL (14.0-18.0); Immature Granulocyte Absolute 0.03 K/mm3 (0.00-0.031); Immature Granulocyte Percent A 0.5 % (0-0.5); Lymphocytes Absolute Auto 0.91 K/mm3 (0.9-3.2); Lymphocytes Percent Auto 14.4 % (18.3-44.2); Mean Corpuscular HGB Conc 32.3 g/dl (32-36); Mean Corpuscular Hemoglobin 29.1 pg (26-34); Mean Platelet Volume 9.1 fl (7.4-10.4); Monocytes Absolute Auto 0.5 K/mm3 (0.1-0.6); Monocytes Percent Auto 8.5 % (2.6-8.5); Neutrophils Absolute Auto 4.7 K/mm3 (1.3-6.7); Neutrophils Percent Auto 73.4 % (45.5-73.1); Platelet Count Result 275 k/mm3 (150-375); Red Cell Distribution Width 14.7 % (11.5-14.5); White Blood Count 6.3 K/mm3 (4.5-10.0)
--- NOTE | 2023-04-24 18:58 | ED.NAVMDI ---
HPI - Nausea/Vomiting/Diarrhea General Chief complaint: Nausea/Vomiting/Diarrhea <Pam Caruso PA-C - Last Filed: 04/25/23 00:07> Stated complaint: Diarrhea <RELL Mckeon Last Filed: 04/25/23 00:07> Time Seen by Provider: 04/24/23 18:25 <RELL Mckeon Last Filed: 04/25/23 00:07> Source: patient <RELL Mckeon Last Filed: 04/25/23 00:07> Mode of arrival: ambulatory <RELL Mckeon Last Filed: 04/25/23 00:07> Limitations: no limitations <RELL Mckeon Last Filed: 04/25/23 00:07> History of Present Illness HPI Narrative: This is a 72 year old male that presents to the ER for diarrhea. Ongoing over the last 6 weeks. Reports a couple episodes daily. Reports abdominal discomfort and nausea. Denies fever, vomiting or dysuria. <RELL Mckeon Last Filed: 04/25/23 00:07> Related Data Home medications: Home Medications Medication Instructions Recorded Confirmed blood sugar diagnostic (OneTouch #10 ea 08/10/19 04/29/23 Ultra Blue Test Strip) enzalutamide 40 mg capsule (Xtandi) 160 mg PO DAILY 12/14/19 04/29/23 leuprolide acetate (6 month) 45 mg 45 mg IM [id number] 12/14/19 04/29/23 intramuscular syringe kit (Lupron Depot) cyanocobalamin (vitamin B-12) 1,000 mcg PO DAILY 05/07/21 04/29/23 1,000 mcg tablet ferrous sulfate 325 mg (65 mg 325 mg PO . every other day 10/05/22 04/29/23 iron) tablet,delayed release calcium carbonate 500 mg calcium 500 mg PO DAILY 12/31/22 04/29/23 (1,250 mg) tablet (Oyster Shell Calcium) cbd topical 1 gel topical DAILY PRN Pain 12/31/22 04/29/23 acetaminophen 325 mg tablet 325 mg PO Q6H PRN Pain 04/07/23 04/29/23 (Tylenol) fexofenadine 180 mg tablet 180 mg PO DAILY PRN Allergy 04/25/23 04/29/23 (Sandy Allergy) Symptoms insulin detemir U-100 100 unit/mL 4 unit subcut BID 04/25/23 04/29/23 (3 mL) subcutaneous pen (Levemir FlexPen) <Pam Caruso PA-C - Last Filed: 04/25/23 00:07> Allergies/Adverse reactions: Allergies Allergy/AdvReac Type Severity Reaction Status Date / Time hydrocodone Allergy Mild UN KNOWN Verified 04/29/23 14:26 tramadol Allergy Other Verified 04/29/23 14:26 <Pam Caruso PA-C - Last Filed: 04/25/23 00:07> Review of Systems Review of Systems: CONSTITUTIONAL: Denies fever GASTROINTESTINAL: Reports abdominal pain, nausea, and diarrhea. Denies vomiting GENITOURINARY: Denies dysuria <Pam Caruso PA-C - Last Filed: 04/25/23 00:07> All systems reviewed & are unremarkable except as noted in HPI and below <Pam Caruso PA-C - Last Filed: 04/25/23 00:07> [facility] Past Medical History Medical History: Medical History Actinic keratosis of multiple sites of head and neck Anemia Arthritis Atherosclerotic heart disease of [place] coronary artery without angina pectoris (~02/17/23) Lexiscan stress test on 02/17/2023 reveals small moderately severe fixed defect inferior lateral consistent with [place] with no reversible defects noted with ejection fraction greater than 70% on 02/17/2023. Echo on 02/21/2023 with ejection fraction 60-65% with moderate LVH and grade 1 diastolic dysfunction with trace mitral valve regurgitation. Basal cell carcinoma of scalp (~11/2022) 1.8 cm raised, ulcerated lesion on the right anterior scalp Chronic anemia hemoglobin 11.2 on 09/24/2022. Chronic bilateral low back pain with right-sided sciatica CKD (chronic kidney disease) stage 3, GFR 30-59 ml/min Essential (primary) hypertension GERD (gastroesophageal reflux disease) Hearing loss High cholesterol Hypercalcemia Insomnia Iron deficiency anemia, unspecified iron 104 with 25% saturation and ferritin 31 with hemoglobin 11.3 on 03/05/2022. Hemoglobin 11.2 with Iron 81 with 19% saturation and ferritin 36 on 09/24/2022. jail (current) use of insulin Lymphedema Bilateral lower extremities
--- NOTE | 2023-04-24 19:00 | ECG_ITS ---
Measurements Intervals [place] Rate: 60 P: 39 CO: 155 QRS: 1 QRSD: 100 T: 50 QT: 408 QTc: 409 Interpretive Statements SINUS RHYTHM NORMAL ECG COMPARED TO ECG 11/15/2020 13:57:15 NO SIGNIFICANT CHANGES Electronically Signed On 04-24-2023 20:15:56 CDT by Tariq Grayson D.O.
--- NOTE | 2023-04-24 19:15 | PC.NURSE ---
Assumed care of pt from LYNSEY Espino at this time. Pt resting comfortably in bed with at bedside.
[2023-04-24] MEDS: ONDANSETRON INJ 4 MG/2 ML VIAL IV PUSH (19:20)
[2023-04-24] MEDS: SODIUM CHLORIDE 0.9% IV 500 ML 999 ML IV CONT ×2 (19:20→20:12)
[2023-04-24] MEDS: SODIUM CHLORIDE 0.9% IV 1,000 ML 500 ML IV CONT (20:53)
--- NOTE | 2023-04-24 20:57 | PM.IMHP ---
H&P: HPI History of Present Illness Date/Time: 04/24/23 20:57 Chief Complaint: Abdominal pain, diarrhea for 6 weeks Narrative: 72-year-old male with a past medical history of grade 1 diastolic dysfunction, dyslipidemia, hypertension, insulin-dependent diabetes, BP and GERD among other medical problems who presented to the ER with abdominal pain and loose stools for 6 weeks. He reports that he had his right shoulder replaced at [facility] about 6 weeks ago. Ever since that time he has been having 2-3 watery to mushy diarrheal stools a day. Sometimes he is having more bowel movements depending on how much she eats. It is been associated with a general lack of appetite and he reports that meet tastes foul. He has had some nausea. He has been trying some Tums at home with some minimal relief in his symptoms. He reports that the pain is in the epigastric and he has some reproducible pain to tenderness in the right upper quadrant. He denies any significant alcohol use in over 10 years. His lipase in the ER was borderline high. He denies any fevers. He reports that he does have chronic hot flashes due to his prostate cancer medication. He has had increased generalized weakness. He reports that his stools have been banks in color pretty consistently. He denies any melena or hematochezia. He denies any known exposure to contaminated water he has not been having any travel. He is on city water. He thinks he did receive preoperative antibiotics for his shoulder surgery but has had no other antibiotic exposure. He reports that he was started on Victoza several months ago. Does Victoza was making a map softer stools but his stools had not changed color and the frequency of the stools was manageable. But now the diarrhea occurs any time he eats. He is also on a chemotherapeutic agents that can cause diarrhea but he has been on that for quite some time as well. He is also on Jardiance which can cause dehydration. He denies any changes in his urinary frequency. He denies sensation of incomplete bladder emptying or dysuria. He has not had any cough or congestion. He feels as if he has lost weight. He reports that his blood sugars have become much better controlled after he started on a continuous glucose monitor. He is not using his continuous glucose monitor in the hospital because his phone is . He reports his last hemoglobin A1c was down t 6.5 and that he has been weaned off of short-acting insulin is only on 40 units of Levemir daily. His glucose when he arrived to the medical floor was 95. He does report symptoms of diabetic neuropathy. He does not have any wounds. He denies any GERD symptoms. Review of Systems Review of Systems: 12 systems were reviewed with pertinent positives and negatives per HPI. Except as documented in the HPI, all other systems were reviewed and are negative. [facility] Past Medical History Medical History (Updated 04/25/23 @ 02:43 by Tracey Vaughn, DO) Actinic keratosis of multiple sites of head and neck Anemia Arthritis Atherosclerotic heart disease of [place] coronary artery without angina pectoris (~02/17/23) Lexiscan stress test on 02/17/2023 reveals small moderately severe fixed defect inferior lateral consistent with [place] with no reversible defects noted with ejection fraction greater than 70% on 02/17/2023. Echo on 02/21/2023 with ejection fraction 60-65% with moderate LVH and grade 1 diastolic dysfunction with trace mitral valve regurgitation. Basal cell carcinoma of scalp (~11/2022) 1.8 cm raised, ulcerated lesion on the right anterior scalp Chronic anemia hemoglobin 11.2 on 09/24/2022. Chronic bilateral low back pain with right-sided sciatica CKD (chronic kidney disease) stage 3, GFR 30-59 ml/min Essential (primary) hypertension GERD (gastroesophageal reflux disease) Hearing loss High cholesterol Hypercalcemia Insomnia Iron deficiency anemia, unspecified iron 104 with 25% saturation and ferr
--- NOTE | 2023-04-24 22:05 | ADMGEN ---
This patient, David Connelly, was admitted to 2 Medical Room 256-01. Patient/family oriented to hospital policies and general routines including ID bracelet, bed and alarms, visiting hours, pain management, procedures, bathroom and other care routines, personal items, smoking policy, room service/diet, and visiting hours. Information on how to activate the Rapid Response Team has been discussed. Patient/Family are encouraged to report perceived risks to care and to ask questions if they do not understand what they are told or what they should do.
[2023-04-24] MEDS: SODIUM CHLORIDE 0.9% IV 1,000 ML 125 ML IV CONT (22:42)
[2023-04-25] VITALS (11 sets, daily range): BP systolic 113–150; BP diastolic 48–57; PULSE 57–67; RESP 18–20; TEMP 36.3–36.9; O2SAT 96–99
[2023-04-25 02:42] LABS: Glucose Point of Care 94 mg/dl (65-105)
[2023-04-25] MEDS: SODIUM CHLORIDE 0.9% IV 1,000 ML 125 ML IV CONT ×3 (04:44→23:34)
[2023-04-25 05:43] LABS: Glucose Point of Care 91 mg/dl (65-105)
[2023-04-25 06:17] LABS: Basophils Percent Auto 0.1 % (0.2-1.2); Eosinophils Absolute Auto 0.2 K/mm3 (0-0.3); Eosinophils Percent Auto 3.1 % (0-4.4); Hemoglobin 10.8 g/dL (14.0-18.0); Immature Granulocyte Absolute 0.03 K/mm3 (0.00-0.031); Immature Granulocyte Percent A 0.4 % (0-0.5); Lymphocytes Absolute Auto 1.06 K/mm3 (0.9-3.2); Lymphocytes Percent Auto 14.5 % (18.3-44.2); Mean Corpuscular HGB Conc 32.7 g/dl (32-36); Mean Corpuscular Hemoglobin 29.8 pg (26-34); Mean Corpuscular Volume 91.2 fl (80-100); Mean Platelet Volume 9.1 fl (7.4-10.4); Monocytes Absolute Auto 0.8 K/mm3 (0.1-0.6); Monocytes Percent Auto 10.4 % (2.6-8.5); Neutrophils Absolute Auto 5.2 K/mm3 (1.3-6.7); Neutrophils Percent Auto 71.5 % (45.5-73.1); Platelet Count Result 186 k/mm3 (150-375); Red Blood Count 3.62 M/mm3 (4.6-6.20); Red Cell Distribution Width 14.7 % (11.5-14.5); White Blood Count 7.3 K/mm3 (4.5-10.0)
[2023-04-25 06:26] LABS: Alanine Aminotransferase 16 U/L (6-50); Albumin Level 3.1 g/dL (3.5-5.1); Alkaline Phosphatase 46 U/L (38-126); Anion Gap 5 mmol/L (8-16); Aspartate Amino Transferase 20 U/L (17-59); Bilirubin,Total 0.5 mg/dL (0.2-1.3); Blood Urea Nitrogen 47 mg/dL (9-20); Calcium 8.5 mg/dL (8.4-10.2); Carbon Dioxide 25 mmol/L (22-30); Chloride 105 mmol/L (98-107); Estimated CRCL calculation 33 ml/min; Estimated Glomerular Filt Rate 31; Glucose 82 mg/dL (65-110); Potassium 4.8 mmol/L (3.4-5.0); Sodium 135 mmol/L (137-145)
[2023-04-25] MEDS: FENOFIBRATE 160 MG TABLET PO (08:44)
[2023-04-25] MEDS: AMITRIPTYLINE HCL 10 MG TABLET PO (08:44)
[2023-04-25] MEDS: PANTOPRAZOLE 40 MG TABLET PO ×2 (08:44→16:42)
[2023-04-25] MEDS: ATORVASTATIN 20 MG TABLET PO (08:44)
[2023-04-25] MEDS: carvediloL 12.5 MG TABLET PO ×2 (08:44→21:40)
[2023-04-25] MEDS: CALCIUM CARBONATE (OSCAL) 500 MG TABLET PO (08:44)
[2023-04-25] MEDS: CYANOCOBALAMIN 1,000 MCG TABLET 1000 MCG PO (08:44)
[2023-04-25] MEDS: FERROUS SULFATE 325 MG TABLET DR PO (08:44)
[2023-04-25] MEDS: CHOLECALCIFEROL 1,000 UNITS TABLET 2000 UNITS PO (08:44)
[2023-04-25 08:48] LABS: Glucose Point of Care 94 mg/dl (65-105)
[2023-04-25 12:34] LABS: Glucose Point of Care 139 mg/dl (65-105)
[2023-04-25] MEDS: DUTASTERIDE 0.5 MG CAPSULE PO (14:32)
[2023-04-25] MEDS: TAMSULOSIN HCL 0.4 MG CAPSULE PO (14:32)
--- NOTE | 2023-04-25 16:17 | PM.IMPN ---
Progress Note: A&P Assessment and Plan (1) Acute on chronic renal failure: Qualifiers: Acute renal failure type: unspecified Chronic kidney disease stage: stage 3 (moderate) Chronic kidney disease stage 3 subtype: stage 3a (GFR 45-59) Qualified Code(s): N17.9 - Acute kidney failure, unspecified; N18.31 - Chronic kidney disease, stage 3a Code(s): N17.9 - Acute kidney failure, unspecified; N18.9 - Chronic kidney disease, unspecified Status: Acute Assessment and Plan: Baseline Cr 1.2-1.4 range. Cr 2.3 on admission and better today. Suspect pre-renal from poor oral intake and diuretics. CT scan showing normal kidneys with 4cm left renal cyst. UA showing glucose and ketones. Continue IV fluids. Monitor renal function, electrolytes and UOP. Check urine lytes (2) Intractable diarrhea: Code(s): R19.7 - Diarrhea, unspecified Status: Acute Assessment and Plan: Patient was having diarrhea x 6 weeks. Described as soft. Also with complaints of upper abdominal pain. Stools are ibarra but LFTs are okay. RUQ US showing no acute findings but CBD not visualized. No diarrhea since admission. Medication related? Monitor for now. Check for COVID. Stool studies ordered but probably not necessary. (3) Dehydration: Code(s): E86.0 - Dehydration Status: Acute Assessment and Plan: As above. (4) Hyperkalemia, diminished renal excretion: Code(s): E87.5 - Hyperkalemia Status: Acute Assessment and Plan: Potassium elevated related to DEEJAY, ARB. ARB held. Potassium normal now. Follow (5) Type 2 diabetes mellitus without complication, with long-term current use of insulin: Code(s): E11.9 - Type 2 diabetes mellitus without complications; Z79.4 - detention (current) use of insulin Status: Acute Assessment and Plan: A1c 6.1 in January. The patient's blood glucose was reviewed on 04/25 Glucose remains well controlled. Continue AccuCheks covering with sliding scale. Hypoglycemia protocol available as needed. Continue to monitor (6) Essential (primary) hypertension: Code(s): I10 - Essential (primary) hypertension Status: Acute Assessment and Plan: Patient's blood pressure was reviewed on 04/25 Blood pressure remains well controlled. Will continue to monitor Plan DVT Prophylaxis - SCDs Code status - Full Disp - PT/OT Subjective Date/time seen: 04/25/23 16:17 Interval history: 72yo male with DM, HTN and CKD here for nausea, vomiting and diarrhea x 6 weeks. Slept poorly last night due to noise. No diarrhea sinice admission. He had a shoulder surgery 6 weeks ago before the onset of his symptoms. No new meds prior to the onset of symptoms but started empagliflozin 2 weeks ago. He uses city water. Not travelled recently. No sick contacts. Slight nausea today and abd pain when eating. Not eating much. No melana or hematochezia. Stool is ibarra color. Last colonoscopy 4-5 years ago and was negative. Exam Narrative: AF 98.5 113/54 59 18 99% ra Gen - NARD Chest - CTA bilaterally, nml RR CV - RRR S1/S2. tele showing no significant dysrhythmias Abd - Soft, NT/ND, Positive BS Ext - No pedal edema Neuro - Alert and oriented. Nonfocal exam. Psych - Nml mood and affect Skin - Warm and dry Objective Data Vital Signs Vital Signs: Vital Signs - 24 hr 04/24/23 19:23 04/24/23 19:45 04/24/23 19:50 Temperature Pulse Rate 59 L 51 L 55 L Respiratory Rate 16 Blood Pressure 133/54 L 128/54 L 129/49 L Pulse Oximetry 100 Oxygen Delivery 04/24/23 20:00 04/24/23 20:15 04/24/23 20:30 Temperature Pulse Rate 62 61 62 Respiratory Rate 14 18 21 H Blood Pressure 122/51 L 117/61 121/52 L Pulse Oximetry 100 99 100 Oxygen Delivery 04/24/23 22:27 04/24/23 22:45 04/25/23 04:31 Temperature 98.1 F 97.7 F Pulse Rate 64 64 58 L Respiratory Rate 20 20 20 Blood Pressure 133/58 L 139/48 L Pulse
[2023-04-25 17:08] LABS: Creatinine Urine 36.4 mg/dL; Urea Random Urine 434 MG/DL
[2023-04-25 17:12] LABS: Glucose Point of Care 100 mg/dl (65-105)
[2023-04-25 17:13] LABS: Sodium Urine Random 90 meq/L
[2023-04-25 17:27] LABS: Total Protein Urine Random < 5 mg/dL; Ur Ttl Prot Creatinine Ratio < 0.14 mg/mg (0-0.20)
[2023-04-25 17:57] LABS: SARS-CoV-2 RNA PCR Negative (Negative)
[2023-04-25 18:43] LABS: Eosinophil Urine None Seen % (None Seen); Urine Eos QC 2nd Tech Confirmed
[2023-04-25 20:52] LABS: Glucose Point of Care 126 mg/dl (65-105)
[2023-04-26] VITALS: PULSE 59
[2023-04-26 04:00] VITALS: PULSE 57
[2023-04-26 04:20] VITALS: BP 129/54; PULSE 58; RESP 17; TEMP 36.1; O2SAT 98
[2023-04-26 06:58] LABS: Hematocrit 32.9 % (42.0-52.0); Hemoglobin 10.5 g/dL (14.0-18.0); Mean Corpuscular HGB Conc 31.9 g/dl (32-36); Mean Corpuscular Hemoglobin 29.3 pg (26-34); Mean Corpuscular Volume 91.9 fl (80-100); Platelet Count Result 173 k/mm3 (150-375); Red Blood Count 3.58 M/mm3 (4.6-6.20); Red Cell Distribution Width 14.9 % (11.5-14.5); White Blood Count 4.4 K/mm3 (4.5-10.0)
[2023-04-26 06:59] LABS: Basophils Percent Auto 0.2 % (0.2-1.2); Eosinophils Absolute Auto 0.3 K/mm3 (0-0.3); Eosinophils Percent Auto 5.7 % (0-4.4); Immature Granulocyte Absolute 0.03 K/mm3 (0.00-0.031); Immature Granulocyte Percent A 0.7 % (0-0.5); Lymphocytes Absolute Auto 0.73 K/mm3 (0.9-3.2); Lymphocytes Percent Auto 16.6 % (18.3-44.2); Mean Platelet Volume 9.3 fl (7.4-10.4); Monocytes Absolute Auto 0.5 K/mm3 (0.1-0.6); Monocytes Percent Auto 11.6 % (2.6-8.5); Neutrophils Absolute Auto 2.9 K/mm3 (1.3-6.7); Neutrophils Percent Auto 65.2 % (45.5-73.1)
[2023-04-26 07:12] LABS: Alanine Aminotransferase 15 U/L (6-50); Albumin Level 3.4 g/dL (3.5-5.1); Alkaline Phosphatase 45 U/L (38-126); Anion Gap 7 mmol/L (8-16); Aspartate Amino Transferase 22 U/L (17-59); Bilirubin,Total 0.5 mg/dL (0.2-1.3); Blood Urea Nitrogen 33 mg/dL (9-20); CRP 0.7 mg/dL (<1.0); Calcium 8.4 mg/dL (8.4-10.2); Carbon Dioxide 23 mmol/L (22-30); Chloride 105 mmol/L (98-107); Creatine Kinase 153 U/L (55-170); Estimated CRCL calculation 48 ml/min; Estimated Glomerular Filt Rate 50; Glucose 103 mg/dL (65-110); Lipase 357 U/L (23-300); Magnesium 1.3 mg/dL (1.6-2.3); Phosphorus 3.3 mg/dL (2.5-4.5); Potassium 4.3 mmol/L (3.4-5.0); Sodium 135 mmol/L (137-145)
[2023-04-26 07:14] LABS: Complement C3 126 mg/dL (88-165)
[2023-04-26] MEDS: MAGNESIUM SULF 2 GM/WATER 50ML 2 GM/50 ML BAG IVPB (07:57)
[2023-04-26] MEDS: SODIUM CHLORIDE 0.9% IV 1,000 ML 125 ML IV CONT (07:57)
[2023-04-26 07:58] VITALS: PULSE 60
[2023-04-26] MEDS: PANTOPRAZOLE 40 MG TABLET PO (07:58)
[2023-04-26] MEDS: CHOLECALCIFEROL 1,000 UNITS TABLET 2000 UNITS PO (07:58)
[2023-04-26] MEDS: CALCIUM CARBONATE (OSCAL) 500 MG TABLET PO (07:58)
[2023-04-26] MEDS: carvediloL 12.5 MG TABLET PO (07:58)
[2023-04-26] MEDS: ENOXAPARIN 30 MG/0.3 ML SYRINGE SUB-Q (07:58)
[2023-04-26] MEDS: CYANOCOBALAMIN 1,000 MCG TABLET 1000 MCG PO (07:58)
[2023-04-26] MEDS: TAMSULOSIN HCL 0.4 MG CAPSULE PO (07:59)
[2023-04-26] MEDS: ATORVASTATIN 20 MG TABLET PO (07:59)
[2023-04-26] MEDS: FENOFIBRATE 160 MG TABLET PO (07:59)
[2023-04-26] MEDS: DUTASTERIDE 0.5 MG CAPSULE PO (07:59)
[2023-04-26 08:00] VITALS: PULSE 68
[2023-04-26 08:22] LABS: Glucose Point of Care 109 mg/dl (65-105)
[2023-04-26 12:00] VITALS: PULSE 65
[2023-04-26 12:05] LABS: Glucose Point of Care 151 mg/dl (65-105)
--- NOTE | 2023-04-26 14:25 | PM.DS ---
DS: Admitting Diagnosis Discharge Date 04/26/23 Admitting Diagnosis Abdominal pain, diarrhea for 6 weeks DS: Discharge Diagnosis Discharge Diagnosis (1) Acute on chronic renal failure: Qualifiers: Acute renal failure type: unspecified Chronic kidney disease stage: stage 3 (moderate) Chronic kidney disease stage 3 subtype: stage 3a (GFR 45-59) Qualified Code(s): N17.9 - Acute kidney failure, unspecified; N18.31 - Chronic kidney disease, stage 3a Code(s): N17.9 - Acute kidney failure, unspecified; N18.9 - Chronic kidney disease, unspecified Status: Acute (2) Intractable diarrhea: Code(s): R19.7 - Diarrhea, unspecified Status: Acute (3) Dehydration: Code(s): E86.0 - Dehydration Status: Acute (4) Hyperkalemia, diminished renal excretion: Code(s): E87.5 - Hyperkalemia Status: Acute (5) Type 2 diabetes mellitus without complication, with long-term current use of insulin: Code(s): E11.9 - Type 2 diabetes mellitus without complications; Z79.4 - long term care pharmacist (current) use of insulin Status: Acute (6) Essential (primary) hypertension: Code(s): I10 - Essential (primary) hypertension Status: Acute DS: Summary Hospital Course Reason for hospitalization: 72yo male with DM, HTN and CKD here for nausea, vomiting and diarrhea x 6 weeks. Please see H&P for details. Hospital Course: Patient presents with nausea, vomiting with diarrhea x 6 weeks. Diarrhea described as soft with associated upper abdominal pain and ibarra stools. LFTs were normal. CT Abd/Pelvis showing bilateral inguinal hernias containing fat but no acute changes. RUQ US showing no acute findings but CBD not visualized. Cr 2.3 on admission. Suspect pre-renal from poor oral intake and diuretics. CT scan showing normal kidneys with 4cm left renal cyst. UA showing glucose and ketones. Renal US was unremarkable. Baseline Cr 1.2-1.4 range.?Potassium was elevated to 5.6 related to DEEJAY, ARB. ARB held. He was started on IV fluids. No diarrhea since admission. COVID negative. Stool culture ordered and pending. Medication related? Cr trended down to 1.4. Potassium normalized. A1c 6.1 in January. The patient's blood glucose was monitored with AccuCheks covering with sliding scale.? Hypoglycemia protocol was available as needed.?Patient's blood pressure remained well controlled off the ARB. He is up ambulating to the bathroom unassisted. He is eating normally without nausea. No longer having diarrhea. He overall did well and was able to be discharged home on 04/26/23.? Status at Discharge Cognitive/behavioral status at discharge: stable Time Spent with Patient Time attestation: Total time spent providing and/or coordinating discharge services: 35 minutes Time spent: Greater than 30 minutes Exam Narrative: AF 97.0 129/54 65 17 98% ra Gen - NARD sitting up in the chair Chest - CTA bilaterally, nml RR CV - RRR S1/S2. tele showing no significant dysrhythmias Abd - Soft, NT/ND, Positive BS Ext - No pedal edema Psych - Nml mood and affect Skin - Warm and dry DS: Data Data Completed and Pending Labs on day of discharge: Labs from last 24 hours 04/26/23 04/26/23 04/26/23 12:00 10:57 08:17 WBC RBC Hgb Hct MCV MCH MCHC RDW Plt Count MPV Immature Gran % (Auto) Neut % (Auto) Lymph % (Auto) [place] % (Auto) Eos % (Auto) Baso % (Auto) Lymph # (Auto) [place] # (Auto) Eos # (Auto) Baso # (Auto) Abs Immat Gran (auto) Absolute Neuts (auto) Absolute Nucleated RBC Nucleated RBC % Sodium Potassium Chloride Carbon Dioxide Anion Gap BUN Creatinine Estim Creat Clear Calc Estimated GFR Glucose POC Capillary Glucose 151 H 109 H Calcium Phosphorus Magnesium Total Bilirubin AST ALT Alkaline Phosphatase Total Creatine Kinase C-Reactive Protein Total
--- NOTE | 2023-04-26 15:01 | PCPTNOTE ---
Patient has orders for discharge and reports no need for physical therapy.
--- NOTE | 2023-04-29 07:44 | PC.NURSE ---
Stool culture is negative. dsDNA- WNL at <1 aware of findings.
[2023-04-29 15:13] LABS: Albumin 3.4 g/dL (3.8-4.8); Alpha 1 Globulin 0.3 g/dL (0.2-0.3); Alpha 2 Globulin 0.7 g/dL (0.5-0.9); Beta 1 Globulin 0.4 g/dL (0.4-0.6); Gamma Globulin 0.6 g/dL (0.8-1.7); Protein, Total 5.7 g/dL (6.1-8.1)
[2023-05-01 03:10] LABS: Creatinine, Random Urine 36 mg/dL (20-320)
== END 2023-04-26 15:55 | disposition home or self-care (01) ==
LOC: ANHED 18:48 → ANH2MED 21:40 → ANH3MEDSUR 04-28 11:14
PROVIDERS: Emergency Medicine; Admitting Provider Internal Medicine; Emergency Provider Physician Assistant; PCP Family Medicine; Visit Provider Internal Medicine
DX: N17.9 Acute kidney failure, unspecified (principal); I13.10 Hypertensive heart and chronic kidney disease without heart failure, with stage 1 through stage 4 chronic kidney disease, or unspecified chronic kidney disease; E11.22 Type 2 diabetes mellitus with diabetic chronic kidney disease; D63.1 Anemia in chronic kidney disease; N18.30 Chronic kidney disease, stage 3 unspecified; Z20.822 Contact with and (suspected) exposure to COVID-19; K21.9 Gastro-esophageal reflux disease without esophagitis; K40.90 Unilateral inguinal hernia, without obstruction or gangrene, not specified as recurrent; C44.41 Basal cell carcinoma of skin of scalp and neck; E78.5 Hyperlipidemia, unspecified; D50.9 Iron deficiency anemia, unspecified; D51.9 Vitamin B12 deficiency anemia, unspecified; E55.9 Vitamin D deficiency, unspecified; E87.5 Hyperkalemia; C61 Malignant neoplasm of prostate; G47.00 Insomnia, unspecified; M54.41 Lumbago with sciatica, right side; I25.10 Atherosclerotic heart disease of native coronary artery without angina pectoris; E66.9 Obesity, unspecified; Z68.30 Body mass index [BMI] 30.0-30.9, adult; F10.90 Alcohol use, unspecified, uncomplicated; Z85.46 Personal history of malignant neoplasm of prostate; Z79.1 Long term (current) use of non-steroidal anti-inflammatories (NSAID); Z79.818 Long term (current) use of other agents affecting estrogen receptors and estrogen levels; Z79.84 Long term (current) use of oral hypoglycemic drugs; Z79.899 Other long term (current) drug therapy
CPT/HCPCS: 36415; 74176; 76705; 76775; 80053; 81003; 82550; 82570; 82948; 83690; 83735; 84100; 84155; 84156; 84165; 84166; 84300; 84540; 85025; 85999; 86038; 86140; 86160; 86225; 86334; 87045; 87269; 87272; 87427; 87449; 87635; 89055; 93005; 96361; 96372; 96374; 96375; 99285; A9270; G0378; J1650; J2405; J3475; J7030; J7040

== ENCOUNTER 2023-06-24 22:07 | Observation (INO) | payer MEDICARE, SELFPAY ==
[2023-06-24] VITALS (11 sets, daily range): BP systolic 79–136; BP diastolic 42–64; PULSE 50–56; RESP 6–18; TEMP 36.2; O2SAT 81–99
--- NOTE | ~2023-06-24 | CT_ITS ---
EXAMINATION: CT brain wo con DATE: 06/25/2023 01:10 INDICATION: Fall. TECHNIQUE: Computed tomography (CT) of the head was performed without intravenous contrast. The mA wa s adjusted according to patient size. Iterative reconstruction technique was employed. The dose-lengt h product was 756.67 mGy-cm. COMPARISON: None FINDINGS: There is a dystrophic calcification in the moises. There are scattered areas of low attenuati on in the cerebral white matter, which is within normal limits for the patient's age. There is no int racranial hemorrhage, acute infarction, or abnormal intracranial mass lesion. The ventricles are norm al in size. There is mild mucosal thickening in the ethmoid sinuses. The orbits are normal. There are small bilateral mastoid effusions. IMPRESSION: 1. No acute intracranial pathology. Reviewed, dictated and finalized at location E.
--- NOTE | ~2023-06-24 | CT_ITS ---
EXAMINATION: CT abdomen pelvis w con DATE: 06/25/2023 01:10 INDICATION: Abdominal pain. Nausea and vomiting. TECHNIQUE: Computed tomography (CT) of the abdomen and pelvis was performed with 100 mL Omnipaque 350 intravenous contrast. Automated exposure control and iterative reconstruction technique were employe d. The dose-length product was 1241.97 mGy-cm. COMPARISON: CT abdomen and pelvis 04/24/2023 FINDINGS: The visualized portions of the lung bases demonstrate mild atelectasis. There is mild eleva tion of right hemidiaphragm. No pleural effusion. The heart size is normal. No pericardial effusion. The liver, gallbladder, spleen, pancreas, and right kidney are normal. There is a 3.8 cm cyst in left kidney. There is calcified atherosclerosis of the aorta and many of the other arteries. There are br achytherapy seeds in the prostate. Stool distends the rectum. The appendix is normal. There are no pa thologically enlarged lymph nodes. There is no free intraperitoneal fluid. There is a right inguinal hernia containing fat. There are old healed fractures of the sacrum and iliac bones. There are change s of posterior fusion procedure from L3 to L5. There is severe lumbar spondylosis. IMPRESSION: 1. Stool distends the rectum. Reviewed, dictated and finalized at location E.
--- NOTE | ~2023-06-24 | XR_ITS ---
EXAMINATION: XR chest 1V portable Exam Date/Time: 06/24/2023 23:15 CDT HISTORY: SOB LOW BP Comparison: 11/15/2020. RESULT: Lines, tubes, and devices: Partially visualized right shoulder arthroplasty. Lungs and pleura: Low volumes with crowding and bibasilar atelectasis, otherwise clear. Cardiomediastinal silhouette: Stable. Other: No acute osseous or upper abdominal finding. IMPRESSION: No acute cardiopulmonary process. Reviewed, dictated and finalized at location K.
--- NOTE | 2023-06-24 22:26 | ECG_ITS ---
Measurements Intervals [place] Rate: 56 P: 14 MT: 160 QRS: -10 QRSD: 101 T: 30 QT: 364 QTc: 354 Interpretive Statements SINUS BRADYCARDIA DELAYED PRECORDIAL R/S TRANSITION NONSPECIFIC T-WAVE ABNORMALITY- INFERIOR LEADS BORDERLINE ECG COMPARED TO ECG 04/24/2023 19:15:15 SINUS BRADYCARDIA NOW PRESENT T-WAVE ABNORMALITY NOW PRESENT Electronically Signed On 06-25-2023 6:23:09 CDT by Tariq Grayson D.O.
[2023-06-24 22:45] LABS: Basophils Percent Auto 0.3 % (0.2-1.2); Eosinophils Absolute Auto 0.1 K/mm3 (0-0.3); Eosinophils Percent Auto 0.7 % (0-4.4); Hemoglobin 11.3 g/dL (14.0-18.0); Immature Granulocyte Absolute 0.05 K/mm3 (0.00-0.031); Immature Granulocyte Percent A 0.7 % (0-0.5); Lymphocytes Absolute Auto 0.73 K/mm3 (0.9-3.2); Lymphocytes Percent Auto 10.1 % (18.3-44.2); Mean Corpuscular HGB Conc 33.2 g/dl (32-36); Mean Corpuscular Hemoglobin 30.6 pg (26-34); Mean Corpuscular Volume 92.1 fl (80-100); Mean Platelet Volume 10.2 fl (7.4-10.4); Monocytes Absolute Auto 0.7 K/mm3 (0.1-0.6); Monocytes Percent Auto 9.3 % (2.6-8.5); Neutrophils Absolute Auto 5.7 K/mm3 (1.3-6.7); Neutrophils Percent Auto 78.9 % (45.5-73.1); Platelet Count Result 239 k/mm3 (150-375); Red Blood Count 3.69 M/mm3 (4.6-6.20); Red Cell Distribution Width 15.3 % (11.5-14.5); White Blood Count 7.2 K/mm3 (4.5-10.0)
--- NOTE | 2023-06-24 22:50 | ED.NAVMDI ---
HPI - Nausea/Vomiting/Diarrhea General Chief complaint: Nausea/Vomiting/Diarrhea Stated complaint: Diarrehia or constipation, blood in stool Time Seen by Provider: 06/24/23 22:21 History of Present Illness HPI Narrative: Patient is a 73-year-old male with a history of hypertension, diabetes, hyperlipidemia, prostate cancer presenting with abdominal pain. Patient states that he has had chronic diarrhea for the last 6 months or so. His is at bedside and states that he has lost a lot of weight in the last year since the diarrhea started. States that he recently saw his PCP who discontinued some of his medications due to his diarrhea. Patient states that over the last several days he has had abdominal pain with constipation. States that he feels like he needs to go but then is only able to pass a small amount. He took some stool softeners which did not seem to help much. Today he had some blood in the toilet bowl so he came in for evaluation. States that he has been having pain in his prostate. States he is on xtandi for his prostate cancer. He also had a fall this evening. States that he lost his balance as he was walking to the toilet. No lightheadedness, chest pain, shortness of breath. No further complaints. Related Data Home Medications Medication Instructions Recorded Confirmed blood sugar diagnostic (OneTouch #10 ea 08/10/19 06/25/23 Ultra Blue Test Strip) enzalutamide 40 mg capsule (Xtandi) 160 mg PO DAILY 12/14/19 06/25/23 leuprolide acetate (6 month) 45 mg 45 mg IM [id number] 12/14/19 06/25/23 intramuscular syringe kit (Lupron Depot) cyanocobalamin (vitamin B-12) 1,000 mcg PO DAILY 05/07/21 06/25/23 1,000 mcg tablet ferrous sulfate 325 mg (65 mg 325 mg PO . every other day 10/05/22 06/25/23 iron) tablet,delayed release calcium carbonate 500 mg calcium 500 mg PO DAILY 12/31/22 06/25/23 (1,250 mg) tablet (Oyster Shell Calcium) cbd topical 1 gel topical DAILY PRN Pain 12/31/22 06/25/23 acetaminophen 325 mg tablet 500 mg PO Q6H PRN Pain 04/07/23 06/25/23 (Tylenol) fexofenadine 180 mg tablet 180 mg PO DAILY PRN Allergy 04/25/23 06/25/23 (Sandy Allergy) Symptoms insulin detemir U-100 100 unit/mL 4 unit subcut BID 04/25/23 06/25/23 (3 mL) subcutaneous pen (Levemir FlexPen) amitriptyline 10 mg tablet 10 mg PO HS 06/25/23 06/25/23 empagliflozin 25 mg tablet 25 mg PO DAILY 06/25/23 06/25/23 (Jardiance) Allergies Allergy/AdvReac Type Severity Reaction Status Date / Time hydrocodone Allergy Mild UN KNOWN Verified 04/29/23 14:26 tramadol Allergy Other Verified 04/29/23 14:26 Review of Systems Review of Systems: All systems reviewed & are unremarkable except as noted in HPI and below PMFSH Past Medical History Medical History (Updated 06/27/23 @ 08:43 by Dena Gary MD) Actinic keratosis of multiple sites of head and neck Acute bronchitis Acute kidney injury Normal renal ultrasound 04/25/2023. Anemia Arthritis Atherosclerotic heart disease of [place] coronary artery without angina pectoris (~02/17/23) Lexiscan stress test on 02/17/2023 reveals small moderately severe fixed defect inferior lateral consistent with [place] with no reversible defects noted with ejection fraction greater than 70% on 02/17/2023. Echo on 02/21/2023 with ejection fraction 60-65% with moderate LVH and grade 1 diastolic dysfunction with trace mitral valve regurgitation. Basal cell carcinoma of scalp (~11/2022) 1.8 cm raised, ulcerated lesion on the right anterior scalp BMI 28.0-28.9,adult BMI 29.0-29.9,adult Chronic anemia hemoglobin 11.2 on 09/24/2022. Chronic bilateral low back pain with right-sided sciatica Chronic nausea CKD (chronic kidney disease) stage 3, GFR 30-59 ml/min COVID-19 (~05/15/23) Essential (primary) hypertension Fecal impaction GERD (gastroesophageal reflux disease) Hearing loss High cholesterol Hypercalcemia Hyperkalemia, diminished renal excretion Insomnia Iron deficiency
[2023-06-24 22:55] LABS: Alanine Aminotransferase 24 U/L (6-50); Albumin Level 3.9 g/dL (3.5-5.1); Alkaline Phosphatase 48 U/L (38-126); Anion Gap 8 mmol/L (8-16); Aspartate Amino Transferase 37 U/L (17-59); Bilirubin,Total 0.8 mg/dL (0.2-1.3); Blood Urea Nitrogen 54 mg/dL (9-20); Calcium 9.8 mg/dL (8.4-10.2); Carbon Dioxide 24 mmol/L (22-30); Chloride 98 mmol/L (98-107); Estimated CRCL calculation 33 ml/min; Estimated Glomerular Filt Rate 37; Glucose 186 mg/dL (65-110); Potassium 4.2 mmol/L (3.4-5.0); Sodium 130 mmol/L (137-145)
[2023-06-24 22:56] LABS: Partial Thromboplastin Time 28.1 SECONDS (22.3-36.8); Prothrombin Time 13.7 Seconds (11.1-14.7)
[2023-06-24] MEDS: SODIUM CHLORIDE 0.9% IV 1,000 ML 999 ML IV CONT (22:59)
[2023-06-24] MEDS: HYDROmorphone HCL INJ (*CRX) 1 MG/ML SYR 0.5 MG IV PUSH (23:00)
[2023-06-24] MEDS: ONDANSETRON INJ 4 MG/2 ML VIAL IV PUSH (23:00)
[2023-06-24 23:18] LABS: Lactic Acid Reflex 1.4 mmol/L (0.7-2.0)
[2023-06-24 23:18] LABS: Lipase 307 U/L (23-300); Magnesium 1.6 mg/dL (1.6-2.3)
[2023-06-25] VITALS (29 sets, daily range): BP systolic 92–144; BP diastolic 54–68; PULSE 52–66; RESP 12–20; TEMP 36.3–36.6; O2SAT 94–100; BMI 28.5
[2023-06-25 00:03] LABS: Influenza A QL RT-PCR Negative (Negative); Influenza B QL RT-PCR Negative (Negative); SARS-CoV-2 RNA PCR Positive (Negative)
[2023-06-25] MEDS: SODIUM CHLORIDE 0.9% IV 1,000 ML 999 ML IV CONT (00:06)
[2023-06-25 02:21] LABS: Appearance Urine Clear (Clear); Bilirubin Urine 1+ (Negative); Blood Urine Trace-intact (Negative); Color Urine Yellow (Yellow); Glucose Urine UA 3+ mg/dL (Negative); Ketones Urine 1+ mg/dL (Negative); Leukocyte Esterase Ur Negative LEU/UL (Negative); Nitrate Urine Negative (Negative); Protein Urine Negative (Negative); Specific Grav Ur 1.015 (1.001-1.035); Urobilinogen Urine 0.2 mg/dL (<2.0); pH Urine 5.5 (5.0-9.0)
[2023-06-25 02:53] LABS: Bacteria Urine None Seen /hpf; Hyaline Casts Urine Present /lpf; Mucus Urine Present /lpf; RBC Urine 0-2 /hpf (0-2); Squamous Epithelial Cell Urine Many /hpf (Few); WBC Urine 21-50 /hpf
[2023-06-25 02:59] LABS: Add Urine Microscopic? YES
[2023-06-25] MEDS: cefTRIAXone 2 GM/NS 100 ML 2 GM/100 ML BAG IVPB (03:49)
--- NOTE | 2023-06-25 04:17 | PM.IMHP ---
H&P: HPI History of Present Illness Date/Time: 06/25/23 04:17 Chief Complaint: Chronic diarrhea of 6 months and blood in stool prior to ED arrival today Narrative: A 73-year-old male with a history of hypertension, diabetes, hyperlipidemia, prostate cancer presenting with abdominal pain.?he has chronic diarrhea for the last 6 months, he has also lost a lot of weight in the last year since the diarrhea started due to poor oral intake and fluid loss.? PCP has been managing chronic diarrhea and has investigated patient, and discontinued some of his medications but symptom continued.? Patient states that over the last several days he has had abdominal pain with constipation.? States that he feels like he needs to go but then is only able to pass a small amount.? He took some stool softeners which did not seem to help much.? Today he had some blood in the toilet bowl so he came in for evaluation.? States that he has been having pain in his prostate.? States he is on xtandi for his prostate cancer.? He also had a fall this evening.? States that he lost his balance as he was walking to the toilet.? No lightheadedness, chest pain, shortness of breath.? No further complaints. Patient was resuscitated with IV fluid boluses in the Ed and his blood pressure stabilized, she is found to have acute kidney injury and also constipation. He will be admitted for observation for IV hydration and close monitoring Review of Systems Review of Systems: All systems reviewed & are unremarkable except as noted in HPI and below PMFSH Past Medical History Medical History Actinic keratosis of multiple sites of head and neck Acute bronchitis Acute kidney injury Normal renal ultrasound 04/25/2023. Anemia Arthritis Atherosclerotic heart disease of [place] coronary artery without angina pectoris (~02/17/23) Lexiscan stress test on 02/17/2023 reveals small moderately severe fixed defect inferior lateral consistent with [place] with no reversible defects noted with ejection fraction greater than 70% on 02/17/2023. Echo on 02/21/2023 with ejection fraction 60-65% with moderate LVH and grade 1 diastolic dysfunction with trace mitral valve regurgitation. Basal cell carcinoma of scalp (~11/2022) 1.8 cm raised, ulcerated lesion on the right anterior scalp BMI 28.0-28.9,adult BMI 29.0-29.9,adult Chronic anemia hemoglobin 11.2 on 09/24/2022. Chronic bilateral low back pain with right-sided sciatica Chronic nausea CKD (chronic kidney disease) stage 3, GFR 30-59 ml/min COVID-19 (~05/15/23) Essential (primary) hypertension GERD (gastroesophageal reflux disease) Hearing loss High cholesterol Hypercalcemia Hyperkalemia, diminished renal excretion Insomnia Iron deficiency anemia, unspecified iron 104 with 25% saturation and ferritin 31 with hemoglobin 11.3 on 03/05/2022. Hemoglobin 11.2 with Iron 81 with 19% saturation and ferritin 36 on 09/24/2022. iron 83 with 24% saturation and ferritin 69 with hemoglobin 11.8 on 06/15/2023. [facility] ([facility] use of insulin Lymphedema Bilateral lower extremities treated with sequential pneumatic compression device Mixed hyperlipidemia Total cholesterol 196, triglycerides 168, HDL 66, LDL 102 on 03/05/2022. Cholesterol 196, triglycerides 153, HDL 64, LDL 105 on 09/24/2022. total cholesterol 180, triglycerides 122, HDL 69 and LDL 90 with ratio 2.6 on 10/28/2022. Nail fungal infection Nausea and vomiting Obesity (BMI 30.0-34.9) Osteoarthritis involving multiple joints on both sides of body Overweight (BMI 25.0-29.9) Polyp of colon Prostate cancer Psoriasis Renal insufficiency, mild BUN 27, creatinine 1.43 with GFR 52 on 03/05/2022. BUN 28 with creatinine 1.30 with GFR 58 on 09/24/2022. BUN 31, creatinine 1.39 with GFR 53 on 10/28/2022. BUN 36, creatinine 1.52, GFR 47 on 06/15/2023. Right carotid bruit Normal carotid Doppler study 12/27/2020 Screening for diabetic retinopathy no diabeti
--- NOTE | 2023-06-25 04:30 | PC.NURSE ---
Up with one assist. Patient is weak and can only pivot from bed to bedside commode.
[2023-06-25] MEDS: SODIUM CHLORIDE 0.9% IV 1,000 ML 125 ML IV CONT ×3 (05:16→22:15)
[2023-06-25] MEDS: HYDROmorphone HCL INJ (*CRX) 1 MG/ML SYR 0.5 MG IV PUSH (05:16)
[2023-06-25 06:46] LABS: Basophils Percent Auto 0.1 % (0.2-1.2); Eosinophils Percent Auto 0.4 % (0-4.4); Hematocrit 32.9 % (42.0-52.0); Hemoglobin 10.6 g/dL (14.0-18.0); Immature Granulocyte Absolute 0.07 K/mm3 (0.00-0.031); Immature Granulocyte Percent A 0.7 % (0-0.5); Lymphocytes Percent Auto 5.2 % (18.3-44.2); Mean Corpuscular HGB Conc 32.2 g/dl (32-36); Mean Corpuscular Hemoglobin 30.4 pg (26-34); Mean Corpuscular Volume 94.3 fl (80-100); Mean Platelet Volume 9.9 fl (7.4-10.4); Monocytes Percent Auto 10.5 % (2.6-8.5); Neutrophils Percent Auto 83.1 % (45.5-73.1); Platelet Count Result 184 k/mm3 (150-375); Red Blood Count 3.49 M/mm3 (4.6-6.20); Red Cell Distribution Width 15.4 % (11.5-14.5); White Blood Count 9.6 K/mm3 (4.5-10.0)
[2023-06-25 06:59] LABS: Anion Gap 12 mmol/L (8-16); Blood Urea Nitrogen 48 mg/dL (9-20); Calcium 8.9 mg/dL (8.4-10.2); Carbon Dioxide 19 mmol/L (22-30); Chloride 102 mmol/L (98-107); Estimated CRCL calculation 42 ml/min; Estimated Glomerular Filt Rate 49; Glucose 124 mg/dL (65-110); Potassium 4.1 mmol/L (3.4-5.0); Sodium 133 mmol/L (137-145)
--- NOTE | 2023-06-25 08:34 | PHAR ---
The patient's home med of Xtandi (enzalutamide) 40mg has been verified. Dose is 40mg - take 4 tabs once a day. Chemotherapy precautions noted.
[2023-06-25] MEDS: ENOXAPARIN 40 MG/0.4 ML SYRINGE SUB-Q (09:40)
--- NOTE | 2023-06-25 16:52 | PM.IMPN ---
Progress Note: A&P Assessment and Plan (1) Acute on chronic renal failure: Qualifiers: Acute renal failure type: unspecified Chronic kidney disease stage: stage 3 (moderate) Chronic kidney disease stage 3 subtype: stage 3a (GFR 45-59) Qualified Code(s): N17.9 - Acute kidney failure, unspecified; N18.31 - Chronic kidney disease, stage 3a Code(s): N17.9 - Acute kidney failure, unspecified; N18.9 - Chronic kidney disease, unspecified Status: Acute (2) Fecal impaction: Code(s): K56.41 - Fecal impaction Status: Acute Plan 73M w/ PMH IDDM, HLD, HTN, GERD, iron def anemia, hx of COVID 19 infection, CKD stage 3a prostate cancer presents with abdominal pain. Admitted on 06/24 for fecal impaction and DEEJAY 1) abdominal pain - likely 2/[address] abd/pelv w/ contrast only demonstrating stool distending the rectum . - soap suds enema x1 without much improvement. will give again. start sennokot s 1 tab BID - to perform rectal. pt mentioned blood in the toilet bowl which brought him in, likely related to distended rectum. pt denies use of NSAIDS or alcohol. had colonoscopy years back which he reports as normal - CLD with normal saline until he can tolerate more intake. cont protonix 2) DEEJAY on CKD stage 3a - improved back to baseline after fluid resuscitation. ctm 3) IDDM - accuchecks and sliding scale 4) hx of HTN - controlled. restart meds as needed FEN: CLD, normal saline GI prophylaxis: protonix DVT prophylaxis: lovenox Lines: pIV Code Status: Full Code Dispo: stable More than 35 minutes spent on chart review, patient interaction and assessment and plan. Subjective Date/time seen: 06/25/23 16:52 Interval history: NAOE. pt reports feeling fine today. he does not think his constipation is improved although , has not had BM Review of Systems Review of Systems: All systems reviewed & are unremarkable except as noted in HPI and below Exam Const: General: comfortable and no acute distress Eyes: Pupils: Equal, round and reactive pupils present Neck: Neck: supple Lymphatic: lymphadenopathy not noted Resp: Effort & Inspection: normal respiratory effort Auscultation: clear to auscultation bilaterally Cardio: Rate: regular rate Rhythm: regular rhythm Heart sounds: no gallops, no murmurs and no rubs GI: Inspection: non-distended GI Palp: Yes Soft to palpation and No Tenderness to palpation present (GI) Auscultation: normal bowel sounds Extrem: General: no edema Objective Data Vital Signs Vital Signs: Vital Signs - 24 hr 06/24/23 22:10 06/24/23 22:26 06/24/23 22:51 Temperature 97.2 F L Pulse Rate 56 L 56 L 54 L Respiratory Rate 18 17 16 Blood Pressure 136/64 Pulse Oximetry 98 99 98 Oxygen Delivery Room Air 06/24/23 23:00 06/24/23 23:01 06/24/23 23:03 Temperature Pulse Rate 53 L 54 L Respiratory Rate 15 18 17 Blood Pressure 79/42 L 80/50 L Pulse Oximetry 98 97 99 Oxygen Delivery 06/24/23 23:04 06/24/23 23:08 06/24/23 23:15 Temperature Pulse Rate 51 L 52 L 50 L Respiratory Rate 12 6 L 12 Blood Pressure 79/43 L Pulse Oximetry 96 81 L 91 Oxygen Delivery 06/24/23 23:16 06/24/23 23:33 06/25/23 01:19 Temperature Pulse Rate 51 L 51 L Respiratory Rate 10 L 11 L Blood Pressure 90/49 L Pulse Oximetry 95 92 99 Oxygen Delivery 06/25/23 01:21 06/25/23 01:46 06/25/23 01:47 Temperature Pulse Rate 54 L 53 L Respiratory Rate 13 13 12 Blood Pressure 125/57 L 92/58 L Pulse Oximetry 100 94 97 Oxygen Delivery 06/25/23 02:00 06/25/23 02:01 06/25/23 02:15 Temperature Pulse Rate 54 L 54 L 53 L Respiratory Rate 12 12 Blood Pressure 95/55 L Pulse Oximetry 96 97 97 Oxygen Delivery 06/25/23 02:16 06/25/23 02:30 06/25/23 02:31 Temperature Pulse Rate 53 L 55 L 52 L Respiratory Rate 14 14 13 Blood Pressure 105/65 120/56 L Pulse Oximetry 96 99 97 Oxygen Delivery 06/25/23 02:32
[2023-06-25] MEDS: SENNA/DOCUSATE SODIUM TABLET 1 TAB PO (18:09)
[2023-06-25 18:22] LABS: Glucose Point of Care 74 mg/dl (65-105)
[2023-06-25 21:22] LABS: Glucose Point of Care 116 mg/dl (65-105)
[2023-06-26] VITALS (11 sets, daily range): BP systolic 130–142; BP diastolic 55–72; PULSE 54–81; RESP 18–25; TEMP 36.6–36.7; O2SAT 97–99; BMI 28.5
[2023-06-26] MEDS: HYDROmorphone HCL INJ (*CRX) 1 MG/ML SYR 0.5 MG IV PUSH (02:23)
[2023-06-26] MEDS: SODIUM CHLORIDE 0.9% IV 1,000 ML 125 ML IV CONT (06:15)
[2023-06-26 07:01] LABS: Hematocrit 28.4 % (42.0-52.0); Hemoglobin 9.2 g/dL (14.0-18.0); Mean Corpuscular HGB Conc 32.4 g/dl (32-36); Mean Corpuscular Hemoglobin 30.6 pg (26-34); Mean Corpuscular Volume 94.4 fl (80-100); Mean Platelet Volume 9.8 fl (7.4-10.4); Platelet Count Result 160 k/mm3 (150-375); Red Blood Count 3.01 M/mm3 (4.6-6.20); Red Cell Distribution Width 15.7 % (11.5-14.5)
[2023-06-26 07:13] LABS: Anion Gap 6 mmol/L (8-16); Blood Urea Nitrogen 28 mg/dL (9-20); Calcium 8.1 mg/dL (8.4-10.2); Carbon Dioxide 22 mmol/L (22-30); Chloride 106 mmol/L (98-107); Estimated CRCL calculation 58 ml/min; Estimated Glomerular Filt Rate > 60; Glucose 71 mg/dL (65-110); Magnesium 1.6 mg/dL (1.6-2.3); Potassium 3.7 mmol/L (3.4-5.0); Sodium 134 mmol/L (137-145)
[2023-06-26 07:57] LABS: Glucose Point of Care 72 mg/dl (65-105)
[2023-06-26] MEDS: PANTOPRAZOLE SODIUM IV 40 MG VIAL IV PUSH (09:00)
[2023-06-26] MEDS: ENOXAPARIN 40 MG/0.4 ML SYRINGE SUB-Q (09:00)
[2023-06-26] MEDS: SENNA/DOCUSATE SODIUM TABLET 1 TAB PO ×2 (09:00→17:57)
--- NOTE | 2023-06-26 11:39 | PM.IMPN ---
Progress Note: A&P Assessment and Plan (1) Fecal impaction: Code(s): K56.41 - Fecal impaction Status: Acute (2) Hypotension: Code(s): I95.9 - Hypotension, unspecified Status: Acute Plan 73M w/ PMH IDDM, HLD, HTN, GERD, iron def anemia, hx of COVID 19 infection, CKD stage 3a prostate cancer presents with abdominal pain. Admitted on 06/24 for fecal impaction and DEEJAY 1) abdominal pain - likely 2/[address] abd/pelv w/ contrast only demonstrating stool distending the rectum . - soap suds enema x1 without much improvement. will give again. start sennokot s 1 tab BID - to perform rectal. pt mentioned blood in the toilet bowl which brought him in, likely related to distended rectum. pt denies use of NSAIDS or alcohol. had colonoscopy years back which he reports as normal - CLD with normal saline until he can tolerate more intake. cont protonix 06/26 update: pt had small BM's. it's a start, but he still feels constipated. will place GI consult and defer to them. this is also in light of his prostate cancer and continuously downtrending HB. rectal exam: 1 external hemorrhoid, nonbleeding. brown stool in vault 2) DEEJAY on CKD stage 3a -? improved back to baseline after fluid resuscitation. ctm 3) IDDM - accuchecks and sliding scale 4) hx of HTN - controlled. restart meds as needed FEN: CLD, normal saline GI prophylaxis: protonix DVT prophylaxis: SCD's Lines: pIV Code Status: Full Code Dispo: stable More than 35 minutes spent on chart review, patient interaction and assessment and plan. Subjective Date/time seen: 06/26/23 11:39 Interval history: pt had small bm last night and again this am. no blood seen. he feels he is not emptied out yet Review of Systems Review of Systems: All systems reviewed & are unremarkable except as noted in HPI and below Exam Const: General: comfortable and no acute distress Eyes: Pupils: Equal, round and reactive pupils present Neck: Neck: supple Resp: Effort & Inspection: normal respiratory effort Auscultation: clear to auscultation bilaterally Cardio: Rate: regular rate Rhythm: regular rhythm GI: Inspection: non-distended GI Palp: Yes Soft to palpation and No Tenderness to palpation present (GI) Auscultation: normal bowel sounds Extrem: General: no edema Objective Data Vital Signs Vital Signs: Vital Signs - 24 hr 06/25/23 12:00 06/25/23 14:00 06/25/23 14:00 Temperature 97.8 F Pulse Rate 58 L 56 L Respiratory Rate 14 Blood Pressure 122/56 L Pulse Oximetry 96 96 Oxygen Delivery Room Air 06/25/23 16:00 06/25/23 21:52 06/25/23 20:00 Temperature 97.6 F Pulse Rate 60 65 66 Respiratory Rate 20 Blood Pressure 144/64 H Pulse Oximetry 100 Oxygen Delivery 06/25/23 20:00 06/26/23 00:00 06/26/23 02:53 Temperature Pulse Rate 65 64 81 Respiratory Rate 20 25 H Blood Pressure Pulse Oximetry 100 97 Oxygen Delivery Room Air Autopap 06/26/23 04:00 06/26/23 06:00 06/26/23 08:00 Temperature 98.0 F Pulse Rate 54 L 54 L 60 Respiratory Rate 20 Blood Pressure 130/56 L Pulse Oximetry 98 Oxygen Delivery 06/26/23 08:00 Temperature Pulse Rate 54 L Respiratory Rate 20 Blood Pressure Pulse Oximetry 98 Oxygen Delivery Autopap Intake/Output Intake/Output: Intake & Output 06/23/23 06/24/23 06/25/23 06/26/23 23:59 23:59 23:59 23:59 Intake Total 4500 1340 Output Total 2400 1000 Balance 2100 340 Meds/Results Medications: Active Medications Generic Name Dose Route Start Last Admin Trade Name Freq PRN Reason Stop Dose Admin Dextrose 12.5 gm 06/25/23 16:51 Dextrose 50% 25 Gm/50 Ml Syringe IV PUSH PRN PRN Hypoglycemia Protocol Glucagon 1 mg 06/25/23 16:51 Glucagon For Inj 1 Mg Vial IM PRN PRN Hypoglycemia Protocol Glucose 15 gm 06/25/23 16:51 Glucose Oral Gel 15 Gm Of Glucse In 37.5 Gm Tube PO PRN PRN Hy
[2023-06-26 11:52] LABS: Glucose Point of Care 114 mg/dl (65-105)
[2023-06-26 14:43] LABS: Hematocrit 30.8 % (42.0-52.0); Hemoglobin 10.1 g/dL (14.0-18.0)
[2023-06-26 16:52] LABS: Glucose Point of Care 101 mg/dl (65-105)
--- NOTE | 2023-06-26 17:25 | WPDGICN ---
Assessment and Plan Assessment and plan (1) Fecal impaction: Code(s): K56.41 - Fecal impaction Status: Acute Assessment and Plan: Patient admitted with fecal impaction. This appears to account for his abdominal discomfort. Stool softeners and laxatives will be continued. He will also need intermittent cleansing laxative stool this is resolved. I suspect the fecal impaction is aggravated some hemorrhoids accounting for his recent small amount of blood noted in stool. After patient is cleansed we can consider an elective colonoscopy as an outpatient if this is not previously been accomplished. (2) COVID-19: Onset Date: ~05/15/23 Code(s): U07.1 - COVID-19 Status: Acute (3) Blood in stool: Code(s): K92.1 - Melena Status: Acute Assessment and Plan: Patient does describe a small amount of blood in the stool shortly before coming hospital. I suspect this is from hemorrhoids evident on exam but other lesions can be evaluated by a colonoscopy after cleansing is accomplished. GI Consult Note Consult date/time: 06/26/23 17:25 Reason for consult: Fecal impaction HPI: David Connelly is a 73 year old male I am asked to see at the request of the hospitalist service because of fecal impaction. Patient has a past history of prostate carcinoma. He has chronic back pain and uses a walker to ambulate. He reports over the last week has had difficulty having bowel movements. Because of abdominal pain and presented to the emergency room. CT scan revealed a large amount of fecal burden. Patient reports a small amount of bright red blood surely before presenting to the emergency. Patient had a small return on bowel movement after an enema last evening but has had no other enemas this time. Patient's family history is noncontributory. Karine and is currently felt be positive for covid infection. Review of Systems Review of Systems: Review of systems noncontributory. [facility] Past Medical History Medical History (Updated 06/26/23 @ 17:28 by Wilbert Grimes MD) Actinic keratosis of multiple sites of head and neck Acute bronchitis Acute kidney injury Normal renal ultrasound 04/25/2023. Anemia Arthritis Atherosclerotic heart disease of [place] coronary artery without angina pectoris (~02/17/23) Lexiscan stress test on 02/17/2023 reveals small moderately severe fixed defect inferior lateral consistent with [place] with no reversible defects noted with ejection fraction greater than 70% on 02/17/2023. Echo on 02/21/2023 with ejection fraction 60-65% with moderate LVH and grade 1 diastolic dysfunction with trace mitral valve regurgitation. Basal cell carcinoma of scalp (~11/2022) 1.8 cm raised, ulcerated lesion on the right anterior scalp BMI 28.0-28.9,adult BMI 29.0-29.9,adult Chronic anemia hemoglobin 11.2 on 09/24/2022. Chronic bilateral low back pain with right-sided sciatica Chronic nausea CKD (chronic kidney disease) stage 3, GFR 30-59 ml/min COVID-19 (~05/15/23) Essential (primary) hypertension Fecal impaction GERD (gastroesophageal reflux disease) Hearing loss High cholesterol Hypercalcemia Hyperkalemia, diminished renal excretion Insomnia Iron deficiency anemia, unspecified iron 104 with 25% saturation and ferritin 31 with hemoglobin 11.3 on 03/05/2022. Hemoglobin 11.2 with Iron 81 with 19% saturation and ferritin 36 on 09/24/2022. iron 83 with 24% saturation and ferritin 69 with hemoglobin 11.8 on 06/15/2023. senior care (current) use of insulin Lymphedema Bilateral lower extremities treated with sequential pneumatic compression device Mixed hyperlipidemia Total cholesterol 196, triglycerides 168, HDL 66, LDL 102 on 03/05/2022. Cholesterol 196, triglycerides 153, HDL 64, LDL 105 on 09/24/2022. total cholesterol 180, triglycerides 122, HDL 69 and LDL 90 with ratio 2.6 on 10/28/2022. Nail fungal infection Nausea and vomiting Obesity (BMI 30.0-34.9) Osteoarthritis involv
[2023-06-26] MEDS: MAGNESIUM CITRATE 300 ML BTL PO (17:57)
--- NOTE | 2023-06-26 18:32 | PC.NURSE ---
Pt ambulated to bathroom. Small BM. Small amount bright red blood noted. pt offers no complaints.
[2023-06-26 22:20] LABS: Glucose Point of Care 115 mg/dl (65-105)
[2023-06-27] VITALS (9 sets, daily range): BP systolic 142–154; BP diastolic 69–78; PULSE 53–67; RESP 16–20; TEMP 36.4–36.9; O2SAT 99–100
[2023-06-27 05:48] LABS: Hematocrit 29.5 % (42.0-52.0); Hemoglobin 9.7 g/dL (14.0-18.0); Mean Corpuscular HGB Conc 32.9 g/dl (32-36); Mean Corpuscular Hemoglobin 30.6 pg (26-34); Mean Corpuscular Volume 93.1 fl (80-100); Mean Platelet Volume 10.4 fl (7.4-10.4); Platelet Count Result 165 k/mm3 (150-375); Red Blood Count 3.17 M/mm3 (4.6-6.20); Red Cell Distribution Width 15.6 % (11.5-14.5); White Blood Count 5.1 K/mm3 (4.5-10.0)
[2023-06-27 05:57] LABS: Anion Gap 5 mmol/L (8-16); Blood Urea Nitrogen 18 mg/dL (9-20); Calcium 8.6 mg/dL (8.4-10.2); Carbon Dioxide 24 mmol/L (22-30); Chloride 106 mmol/L (98-107); Estimated CRCL calculation 64 ml/min; Estimated Glomerular Filt Rate > 60; Glucose 83 mg/dL (65-110); Potassium 3.4 mmol/L (3.4-5.0); Sodium 135 mmol/L (137-145)
[2023-06-27 08:58] LABS: Glucose Point of Care 98 mg/dl (65-105)
[2023-06-27] MEDS: PANTOPRAZOLE SODIUM IV 40 MG VIAL IV PUSH (09:34)
--- NOTE | 2023-06-27 09:34 | PC.NURSE ---
Pt refuses AM laxative. Multiple BM.S overnight ranging from soft formed to liquid.
--- NOTE | 2023-06-27 14:26 | PM.IMPN ---
Progress Note: A&P Assessment and Plan (1) Fecal impaction: Code(s): K56.41 - Fecal impaction Status: Acute (2) Hypotension: Code(s): I95.9 - Hypotension, unspecified Status: Acute Plan 73M w/ PMH IDDM, HLD, HTN, GERD, iron def anemia, hx of COVID 19 infection, CKD stage 3a prostate cancer presents with abdominal pain. Admitted on 06/24 for fecal impaction and DEEJAY due to hypotension 1) abdominal pain - resolved. 2/[address] abd/pelv w/ contrast only demonstrating stool distending the rectum . - given soap suds enema x3, miralax and senokot. 06/27 resolved, continue senokot only - rectal exam w/ one external hemorrhoid. GI following. needs colonoscopy outpatient - CLD with normal saline until he can tolerate more intake. cont protonix 2) DEEJAY on CKD stage 3a -? improved back to baseline after fluid resuscitation. ctm 3) IDDM - accuchecks and sliding scale 4) hx of HTN - controlled. holding coreg and telmisartan FEN: cardiac diabetic diet, fluids stopped GI prophylaxis: protonix stopped, not indicated DVT prophylaxis: HSC Lines: pIV Code Status: Full Code Dispo: stable. PT/OT consulted, awaiting placement for rehab. More than 35 minutes spent on chart review, patient interaction and assessment and plan. Subjective Date/time seen: 06/27/23 14:26 Interval history: pt hard many liquid bm's without blood. he feels great. feels his belly is soft now Review of Systems Review of Systems: All systems reviewed & are unremarkable except as noted in HPI and below Exam Const: General: comfortable and no acute distress Eyes: Pupils: Equal, round and reactive pupils present Neck: Neck: supple Resp: Effort & Inspection: normal respiratory effort Auscultation: clear to auscultation bilaterally Cardio: Rate: regular rate Rhythm: regular rhythm Heart sounds: no gallops, no murmurs and no rubs GI: Inspection: non-distended GI Palp: Yes Soft to palpation and No Tenderness to palpation present (GI) Auscultation: normal bowel sounds Extrem: General: no edema Objective Data Vital Signs Vital Signs: Vital Signs - 24 hr 06/26/23 16:00 06/26/23 22:00 06/26/23 20:45 Temperature 98.1 F Pulse Rate 61 69 63 Respiratory Rate 20 Blood Pressure 142/72 H Pulse Oximetry 99 Oxygen Delivery 06/26/23 20:45 06/27/23 00:00 06/26/23 23:15 Temperature Pulse Rate 69 53 L 77 Respiratory Rate 20 19 Blood Pressure Pulse Oximetry 99 98 Oxygen Delivery Autopap Autopap 06/27/23 05:59 06/27/23 04:00 06/27/23 08:00 Temperature 97.6 F Pulse Rate 55 L 54 L 60 Respiratory Rate 16 Blood Pressure 142/69 H Pulse Oximetry 100 Oxygen Delivery Intake/Output Intake/Output: Intake & Output 06/24/23 06/25/23 06/26/23 06/27/23 23:59 23:59 23:59 23:59 Intake Total 4500 1576 100 Output Total 2400 1600 1000 Balance 2249 -63 -606 Meds/Results Medications: Active Medications Generic Name Dose Route Start Last Admin Trade Name Freq PRN Reason Stop Dose Admin Dextrose 12.5 gm 06/25/23 16:51 Dextrose 50% 25 Gm/50 Ml Syringe IV PUSH PRN PRN Hypoglycemia Protocol Glucagon 1 mg 06/25/23 16:51 Glucagon For Inj 1 Mg Vial IM PRN PRN Hypoglycemia Protocol Glucose 15 gm 06/25/23 16:51 Glucose Oral Gel 15 Gm Of Glucse In 37.5 Gm Tube PO PRN PRN Hypoglycemia Protocol Hydromorphone HCl 0.5 mg 06/25/23 05:09 06/26/23 02:23 Hydromorphone Hcl Inj (*Crx) 1 Mg/Ml Syr IV PUSH 0.5 mg Q6H PRN Administration Pain Rated 7-10 Dextrose 1,000 mls @ 100 mls/hr 06/25/23 16:51 Dextrose 5% 1,000 Ml IVPB PRN PRN Hypoglycemia Protocol Insulin Aspart 3 - 6 units 06/25/23 17:00 06/27/23 12:13 Insulin Aspart (*Bkc) 100 Units/Ml SUB-Q Not Given TIDWM ROBERTO CARLOS Protocol Insulin Aspart 1 - 3 units 06/25/23 21:00 06/27/23 01:28 Insulin Aspart (*Bkc) 100 Units/Ml
--- NOTE | 2023-06-27 15:30 | WPDGIPROGNO ---
Progress Note: A&P Assessment and Plan (1) Fecal impaction: Code(s): K56.41 - Fecal impaction Status: Acute Assessment and Plan: clinically better, he is having bowel movements no report of blood in stool (2) Blood in stool: Code(s): K92.1 - Melena Status: Acute Assessment and Plan: probably from fecal impaction we can arrange colonoscopy as outpatient once fully recovered from COVID h/h stable (3) COVID-19: Onset Date: ~05/15/23 Code(s): U07.1 - COVID-19 Status: Acute (4) Acute on chronic renal failure: Qualifiers: Acute renal failure type: unspecified Chronic kidney disease stage: stage 3 (moderate) Chronic kidney disease stage 3 subtype: stage 3a (GFR 45-59) Qualified Code(s): N17.9 - Acute kidney failure, unspecified; N18.31 - Chronic kidney disease, stage 3a Code(s): N17.9 - Acute kidney failure, unspecified; N18.9 - Chronic kidney disease, unspecified Status: Acute Subjective Date/time seen: 06/27/23 15:30 Interval history: he is feeling much better, having BM without any blood, no nausea on isolation because covid Review of Systems Review of Systems: All systems reviewed & are unremarkable except as noted in HPI and below Exam Const: General: comfortable and no acute distress HENMT: Face/Nose/Sinus: Normal nares present Eyes: Pupils: Equal, round and reactive pupils present Neck: Neck: supple Resp: Effort & Inspection: normal respiratory effort Auscultation: clear to auscultation bilaterally Other: cough Cardio: Rate: regular rate Rhythm: regular rhythm GI: Inspection: non-distended GI Palp: Yes Soft to palpation and No Tenderness to palpation present (GI) Auscultation: normal bowel sounds Skin: General skin exam: normal color Neuro: Speech: normal speech Extrem: General: no edema Psych: Affect: normal affect Objective Data Vital Signs Vital Signs: Vital Signs - 24 hr 06/26/23 16:00 06/26/23 22:00 06/26/23 20:45 Temperature 98.1 F Pulse Rate 61 69 63 Respiratory Rate 20 Blood Pressure 142/72 H Pulse Oximetry 99 Oxygen Delivery 06/26/23 20:45 06/27/23 00:00 06/26/23 23:15 Temperature Pulse Rate 69 53 L 77 Respiratory Rate 20 19 Blood Pressure Pulse Oximetry 99 98 Oxygen Delivery Autopap Autopap 06/27/23 05:59 06/27/23 04:00 06/27/23 08:00 Temperature 97.6 F Pulse Rate 55 L 54 L 60 Respiratory Rate 16 Blood Pressure 142/69 H Pulse Oximetry 100 Oxygen Delivery Intake/Output Intake/Output: Intake & Output 06/24/23 06/25/23 06/26/23 06/27/23 23:59 23:59 23:59 23:59 Intake Total 4500 1576 100 Output Total 2400 1600 1000 Balance 2263 -23 -689 Meds/Results Medications: Active Medications Generic Name Dose Route Start Last Admin Trade Name Freq PRN Reason Stop Dose Admin Dextrose 12.5 gm 06/25/23 16:51 Dextrose 50% 25 Gm/50 Ml Syringe IV PUSH PRN PRN Hypoglycemia Protocol Glucagon 1 mg 06/25/23 16:51 Glucagon For Inj 1 Mg Vial IM PRN PRN Hypoglycemia Protocol Glucose 15 gm 06/25/23 16:51 Glucose Oral Gel 15 Gm Of Glucse In 37.5 Gm Tube PO PRN PRN Hypoglycemia Protocol Heparin Sodium (Porcine) 5,000 units 06/27/23 21:00 Heparin Sodium 5,000 Units/Ml Vial SUB-Q Q12HR ROBERTO CARLOS Hydromorphone HCl 0.5 mg 06/25/23 05:09 06/26/23 02:23 Hydromorphone Hcl Inj (*Crx) 1 Mg/Ml Syr IV PUSH 0.5 mg Q6H PRN Administration Pain Rated 7-10 Dextrose 1,000 mls @ 100 mls/hr 06/25/23 16:51 Dextrose 5% 1,000 Ml IVPB PRN PRN Hypoglycemia Protocol Insulin Aspart 3 - 6 units 06/25/23 17:00 06/27/23 12:13 Insulin Aspart (*Bkc) 100 Units/Ml SUB-Q Not Given TIDWM ROBERTO CARLOS Protocol Insulin Aspart 1 - 3 units 06/25/23 21:00 06/27/23 01:28 Insulin Aspart (*Bkc) 100 Units/Ml SUB-Q Not Given HS ROBERTO CARLOS Protocol
[2023-06-27 20:11] LABS: Glucose Point of Care 124 mg/dl (65-105)
[2023-06-27] MEDS: HEPARIN SODIUM 5,000 UNITS/ML VIAL 5000 UNITS SUB-Q (21:06)
[2023-06-27 22:09] LABS: Glucose Point of Care 129 mg/dl (65-105)
[2023-06-28] VITALS: PULSE 54
--- NOTE | 2023-06-28 01:01 | PC.NURSE ---
Daylight Savings Time For Daylight Savings Time Ending in the Fall - Clocks are moved back. For Daylight Savings Time Beginning in the Spring - Clocks are moved ahead. For [facility], the time of change occurs at 0200 hrs. Time is taken from the restaurant line server. This entry on the patient's chart recognizes the change in time reflected during documentation. Example: 2 entries for vital signs may be charted for 0200 hrs.
[2023-06-28 04:00] VITALS: PULSE 54
[2023-06-28 06:00] VITALS: BP 147/72; PULSE 61; RESP 18; TEMP 36.5; O2SAT 99
[2023-06-28 06:49] LABS: Hematocrit 29.6 % (42.0-52.0); Hemoglobin 9.8 g/dL (14.0-18.0); Mean Corpuscular HGB Conc 33.1 g/dl (32-36); Mean Corpuscular Hemoglobin 30.6 pg (26-34); Mean Corpuscular Volume 92.5 fl (80-100); Mean Platelet Volume 10.3 fl (7.4-10.4); Platelet Count Result 165 k/mm3 (150-375); Red Cell Distribution Width 15.4 % (11.5-14.5); White Blood Count 4.1 K/mm3 (4.5-10.0)
[2023-06-28 07:02] LABS: Anion Gap 4 mmol/L (8-16); Blood Urea Nitrogen 13 mg/dL (9-20); Calcium 8.1 mg/dL (8.4-10.2); Carbon Dioxide 26 mmol/L (22-30); Chloride 104 mmol/L (98-107); Estimated CRCL calculation 64 ml/min; Estimated Glomerular Filt Rate > 60; Glucose 103 mg/dL (65-110); Potassium 3.3 mmol/L (3.4-5.0); Sodium 134 mmol/L (137-145)
[2023-06-28 08:00] VITALS: PULSE 61; RESP 18; O2SAT 99
[2023-06-28 08:27] LABS: Glucose Point of Care 98 mg/dl (65-105)
[2023-06-28] MEDS: HEPARIN SODIUM 5,000 UNITS/ML VIAL 5000 UNITS SUB-Q (09:08)
[2023-06-28] MEDS: SENNA/DOCUSATE SODIUM TABLET 1 TAB PO (09:08)
--- NOTE | 2023-06-28 10:52 | PM.DS ---
DS: Admitting Diagnosis Discharge Date 06/28/23 Admitting Diagnosis abdominal pain DS: Discharge Diagnosis Discharge Diagnosis (1) Hypotension: Code(s): I95.9 - Hypotension, unspecified Status: Acute (2) Fecal impaction: Code(s): K56.41 - Fecal impaction Status: Acute (3) Blood in stool: Code(s): K92.1 - Melena Status: Acute (4) COVID-19: Onset Date: ~05/15/23 Code(s): U07.1 - COVID-19 Status: Acute DS: Summary Hospital Course Hospital Course: 73M w/ PMH IDDM, HLD, GERD, iron def anemia, external hemorrhoid, hx of COVID 19 infection, CKD stage 3a, prostate cancer, presents with abdominal pain. He was treated for fecal impaction/constipation with senokot s and distended abdomen and pain resolved. He will be discharged to home in stable condition and prn senokot s presented with hypotension and DEEJAY on CKD due to dehydration, resolved s/p fluids he mentioned pinkish smear on stool. he does have external hemorrhoid and GI was consulted. he is to follow up for colonoscopy as outpatient. his HB remained stable. he should have aspirin use discussed with PCP positive COVID-19 although asymptomatic. he was full code during his stay Time Spent with Patient Time attestation: Total time spent providing and/or coordinating discharge services: Exam Const: General: cooperative and no acute distress Resp: Effort & Inspection: normal respiratory effort Auscultation: clear to auscultation bilaterally Cardio: Rate: regular rate Rhythm: regular rhythm Heart sounds: S1 normal heart sound present and S2 normal heart sound present GI: GI Palp: No abdominal tenderness Auscultation: normal bowel sounds DS: Data Data Completed and Pending Labs on day of discharge: Labs from last 24 hours 06/28/23 06/28/23 06/27/23 08:21 06:07 21:09 WBC 4.1 L RBC 3.20 L Hgb 9.8 L Hct 29.6 L MCV 92.5 MCH 30.6 MCHC 33.1 RDW 15.4 H Plt Count 165 MPV 10.3 Sodium 134 L Potassium 3.3 L Chloride 104 Carbon Dioxide 26 Anion Gap 4 L BUN 13 D Creatinine 0.90 Estim Creat Clear Calc 64 Estimated GFR > 60 Glucose 103 POC Capillary Glucose 98 129 H Calcium 8.1 L 06/27/23 17:22 WBC RBC Hgb Hct MCV MCH MCHC RDW Plt Count MPV Sodium Potassium Chloride Carbon Dioxide Anion Gap BUN Creatinine Estim Creat Clear Calc Estimated GFR Glucose POC Capillary Glucose 124 H Calcium Discharge Plan Discharge Attending physician on discharge: Carolina Drake Consulting providers: Wilbert Grimes Discharging Clinician: Carolina Drake Patient Disposition: Home, Self-Care Activity: may shower Diet: heart healthy Stand Alone Forms: General Discharge Information Follow-up/Referrals: Wilbert Grimes MD [Physician] - 2 Weeks Gibson Segura MD [Primary Care Provider] - 1 Week Discharge Medications: New sennosides-docusate sodium [Senokot-S] 8.6-50 mg Tablet 1 tab-cap PO BID PRN (Reason: constipation) Qty: 60 1RF Continued Xtandi 40 mg capsule 160 mg PO DAILY Lupron Depot (6 Month) 45 mg syringe kit 45 mg IM [id number] Patient Comments: 4 months ago calcium carbonate [Oyster Shell Calcium] 500 mg calcium (1,250 mg) tablet 500 mg PO DAILY Patient Comments: dose unknown cbd topical 1 gel topical DAILY PRN (Reason: Pain) Rx Instructions: daily acetaminophen [Tylenol] 325 mg tablet 500 mg PO Q6H PRN (Reason: Pain) atorvastatin 20 mg tablet 20 mg PO DAILY Qty: 90 3RF (DME) OneTouch Ultra Blue Test Strip Strip See Rx Instructions .ROUTE .MEDSUPPLY Qty: 10 Rx Instructions: Use 3 times daily (DME) [employer] G6 Sensor Device See Rx Instructions .ROUTE .MEDSUPPLY Qty: 3 3RF Rx Instructions: As directed carvedilol 12.5 mg tablet 12.5 mg PO Q12H Qty: 60 5RF R
[2023-06-28] MEDS: SODIUM CHLORIDE 0.9% IV 250 ML 50 ML (11:43)
[2023-06-28] MEDS: KCL 20 MEQ/SW 100 ML 100 ML 50 MEQ IVPB (11:43)
[2023-06-28] MEDS: POTASSIUM CHLORIDE 10 MEQ ER TABLET PO (11:43)
[2023-06-28 11:58] LABS: Glucose Point of Care 126 mg/dl (65-105)
--- NOTE | 2023-06-28 12:26 | WPDGIPROGNO ---
Progress Note: A&P Assessment and Plan (1) Fecal impaction: Code(s): K56.41 - Fecal impaction Status: Acute Assessment and Plan: clinically better, he is having bowel movements and tolerating diet no report of blood in stool (2) Blood in stool: Code(s): K92.1 - Melena Status: Acute Assessment and Plan: probably from fecal impaction we will arrange colonoscopy as outpatient once fully recovered from COVID in few more weeks h/h stable (3) COVID-19: Onset Date: ~05/15/23 Code(s): U07.1 - COVID-19 Status: Acute Assessment and Plan: on isolation (4) Acute on chronic renal failure: Qualifiers: Acute renal failure type: unspecified Chronic kidney disease stage: stage 3 (moderate) Chronic kidney disease stage 3 subtype: stage 3a (GFR 45-59) Qualified Code(s): N17.9 - Acute kidney failure, unspecified; N18.31 - Chronic kidney disease, stage 3a Code(s): N17.9 - Acute kidney failure, unspecified; N18.9 - Chronic kidney disease, unspecified Status: Acute Subjective Date/time seen: 06/28/23 12:26 Interval history: he is having BM and tolerating diet, he is leaving hospital later today Review of Systems Review of Systems: All systems reviewed & are unremarkable except as noted in HPI and below Exam Const: General: comfortable and no acute distress HENMT: Face/Nose/Sinus: Normal nares present Eyes: Pupils: Equal, round and reactive pupils present Neck: Neck: supple Resp: Effort & Inspection: normal respiratory effort Auscultation: clear to auscultation bilaterally Cardio: Rate: regular rate Rhythm: regular rhythm GI: Inspection: non-distended GI Palp: Yes Soft to palpation and No Tenderness to palpation present (GI) Auscultation: normal bowel sounds Skin: General skin exam: normal color Neuro: Speech: normal speech Extrem: General: no edema Psych: Affect: normal affect Objective Data Vital Signs Vital Signs: Vital Signs - 24 hr 06/27/23 15:48 06/27/23 16:00 06/27/23 14:00 Temperature 98.4 F Pulse Rate 57 L 67 Respiratory Rate 20 Blood Pressure 147/78 H Pulse Oximetry 99 Oxygen Delivery Room Air 06/27/23 20:00 06/27/23 22:00 11/05/23 00:00 Temperature 98 F Pulse Rate 66 63 54 L Respiratory Rate 20 Blood Pressure 154/70 H Pulse Oximetry 99 Oxygen Delivery 06/28/23 04:00 06/28/23 06:00 06/28/23 08:00 Temperature 97.7 F Pulse Rate 54 L 61 61 Respiratory Rate 18 18 Blood Pressure 147/72 H Pulse Oximetry 99 99 Oxygen Delivery Room Air Intake/Output Intake/Output: Intake & Output 06/25/23 06/26/23 06/27/23 06/28/23 23:59 23:59 23:59 22:59 Intake Total 4500 1576 890 100 Output Total 2400 1600 1625 Balance 6675 -36 -774 100 Meds/Results Medications: Active Medications Generic Name Dose Route Start Last Admin Trade Name Freq PRN Reason Stop Dose Admin Dextrose 12.5 gm 06/25/23 16:51 Dextrose 50% 25 Gm/50 Ml Syringe IV PUSH PRN PRN Hypoglycemia Protocol Glucagon 1 mg 06/25/23 16:51 Glucagon For Inj 1 Mg Vial IM PRN PRN Hypoglycemia Protocol Glucose 15 gm 06/25/23 16:51 Glucose Oral Gel 15 Gm Of Glucse In 37.5 Gm Tube PO PRN PRN Hypoglycemia Protocol Heparin Sodium (Porcine) 5,000 units 06/27/23 21:00 06/28/23 09:08 Heparin Sodium 5,000 Units/Ml Vial SUB-Q 5,000 units Q12HR ROBERTO CARLOS Administration Hydromorphone HCl 0.5 mg 06/25/23 05:09 06/26/23 02:23 Hydromorphone Hcl Inj (*Crx) 1 Mg/Ml Syr IV PUSH 0.5 mg Q6H PRN Administration Pain Rated 7-10 Dextrose 1,000 mls @ 100 mls/hr 06/25/23 16:51 Dextrose 5% 1,000 Ml IVPB PRN PRN Hypoglycemia Protocol Potassium Chloride 100 mls @ 50 mls/hr 06/28/23 10:52 06/28/23 11:43 Kcl 20 Meq/Sw 100 Ml IVPB 06/28/23 12:51 50 mls/hr ONCE STA Administration Insulin Aspart 3 - 6 units
[2023-06-28 12:28] LABS: Magnesium 1.8 mg/dL (1.6-2.3); Potassium 3.5 mmol/L (3.4-5.0)
== END 2023-06-28 17:41 | disposition home or self-care (01) ==
LOC: ANHED 23:15 → ANH3MEDSUR 06-25 04:09
PROVIDERS: Admitting Provider Student in an Organized Health Care Education/Training Program; Emergency Provider Emergency Medicine; PCP Family Medicine; Visit Provider General Practice
DX: I95.9 Hypotension, unspecified (principal); K56.41 Fecal impaction; K92.1 Melena; U07.1 COVID-19; C61 Malignant neoplasm of prostate; R63.4 Abnormal weight loss; Z68.28 Body mass index [BMI] 28.0-28.9, adult; N17.9 Acute kidney failure, unspecified; I13.10 Hypertensive heart and chronic kidney disease without heart failure, with stage 1 through stage 4 chronic kidney disease, or unspecified chronic kidney disease; E11.22 Type 2 diabetes mellitus with diabetic chronic kidney disease; N18.31 Chronic kidney disease, stage 3a; D63.1 Anemia in chronic kidney disease; E86.0 Dehydration; R00.1 Bradycardia, unspecified; D64.9 Anemia, unspecified; D50.9 Iron deficiency anemia, unspecified; W18.30XA Fall on same level, unspecified, initial encounter; Z99.89 Dependence on other enabling machines and devices; E78.5 Hyperlipidemia, unspecified; K21.9 Gastro-esophageal reflux disease without esophagitis; T78.40XA Allergy, unspecified, initial encounter; F10.90 Alcohol use, unspecified, uncomplicated; Z79.82 Long term (current) use of aspirin; Z79.4 Long term (current) use of insulin; Z79.84 Long term (current) use of oral hypoglycemic drugs; Z79.899 Other long term (current) drug therapy
CPT/HCPCS: 36415; 70450; 71045; 74177; 80048; 80053; 81001; 82948; 83605; 83690; 83735; 84132; 85014; 85018; 85025; 85027; 85610; 85730; 86850; 86900; 86901; 87086; 87636; 93005; 96361; 96365; 96372; 96375; 96376; 97161; 99285; A9270; C9113; G0378; J0696; J1170; J1644; J1650; J2405; J3480; J7030; J7050; Q9967

== ENCOUNTER 2023-07-16 17:20 | Inpatient (IN) | payer MEDICARE, SELFPAY ==
[2023-07-16] VITALS (23 sets, daily range): BP systolic 78–133; BP diastolic 45–73; PULSE 57–65; RESP 11–24; TEMP 35.4–36.4; O2SAT 95–100
--- NOTE | ~2023-07-16 | CT_ITS ---
EXAMINATION: CT brain wo con DATE: 07/16/2023 18:46 INDICATION: Lethargy, weakness TECHNIQUE: Computed tomography (CT) of the head was performed without intravenous contrast. The mA wa s adjusted according to patient size. Iterative reconstruction technique was employed. Exam dose: 68 1.00 mGy-cm total exam DLP. COMPARISON: 06/25/2023 CT brain FINDINGS: Bilateral vertebral artery, basilar artery and bilateral carotid siphon internal carotid ar brian calcifications. There is nonspecific diminished attenuation of the cerebral white matter, likely due to chronic small vessel ischemic changes. Approximately 2.5 x 4.6 mm calcification is noted within the left brainstem. No cerebrovascular accident is evident. No intracranial mass lesion or hemorrhage, midline shift or mass effect. There is moderate cerebral and cerebellar volume loss. No subdural or epidural hematoma. No fracture or bone destruction of the cranial vault. Normal development and aeration of the paranasal sinuses and mastoid air cells. IMPRESSION: Cerebral atherosclerosis and chronic small vessel ischemic changes of the cerebral white matter Focal left brainstem calcification No acute intracranial finding Reviewed, dictated and finalized at [facility]. Reviewed, dictated and finalized at [facility]. [facility] [employer]
--- NOTE | ~2023-07-16 | XR_ITS ---
XR chest 2V DATE: 07/16/2023 18:25 INDICATION: Weakness. TECHNIQUE: AP and lateral views COMPARISON: 06/24/2023 portable AP chest at 2323 hours FINDINGS: Normal heart size. No pulmonary vascular congestion or pleural effusion, pulmonary infiltra te or consolidation or pneumothorax. Aortic arch calcification. No hilar or mediastinal enlargement. Elevation right diaphragm. Right glenohumeral joint replacement. 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 IMPRESSION: No active cardiopulmonary disease Aortic atherosclerosis Reviewed, dictated and finalized at [facility]. C[facility]IER
--- NOTE | 2023-07-16 17:48 | ECG_ITS ---
Measurements Intervals [place] Rate: 58 P: 48 WA: 163 QRS: 3 QRSD: 97 T: 44 QT: 431 QTc: 426 Interpretive Statements SINUS BRADYCARDIA BASELINE ARTIFACT- I, II, AVR, AVL, V1, V4 BORDERLINE ECG COMPARED TO ECG 06/24/2023 22:31:20 NO SIGNIFICANT CHANGES Electronically Signed On 07-16-2023 20:04:15 STRATE[employer]IC MARKETING MANAGER by Tariq Grayson D.O.
[2023-07-16 18:11] LABS: Basophils Percent Auto 0.6 % (0.2-1.2); Eosinophils Absolute Auto 0.1 K/mm3 (0-0.3); Eosinophils Percent Auto 1.9 % (0-4.4); Hemoglobin 11.5 g/dL (14.0-18.0); Immature Granulocyte Absolute 0.03 K/mm3 (0.00-0.031); Immature Granulocyte Percent A 0.6 % (0-0.5); Lymphocytes Absolute Auto 0.72 K/mm3 (0.9-3.2); Lymphocytes Percent Auto 15.4 % (18.3-44.2); Mean Corpuscular HGB Conc 32.9 g/dl (32-36); Mean Corpuscular Hemoglobin 30.9 pg (26-34); Mean Corpuscular Volume 94.1 fl (80-100); Mean Platelet Volume 9.8 fl (7.4-10.4); Monocytes Absolute Auto 0.6 K/mm3 (0.1-0.6); Monocytes Percent Auto 13.3 % (2.6-8.5); Neutrophils Absolute Auto 3.2 K/mm3 (1.3-6.7); Neutrophils Percent Auto 68.2 % (45.5-73.1); Platelet Count Result 217 k/mm3 (150-375); Red Blood Count 3.72 M/mm3 (4.6-6.20); Red Cell Distribution Width 14.7 % (11.5-14.5); White Blood Count 4.7 K/mm3 (4.5-10.0)
--- NOTE | 2023-07-16 18:12 | ED.WEAKNESS ---
HPI - Weakness General Chief complaint: Weakness Stated complaint: lethargy Time Seen by Provider: 07/16/23 17:54 Source: patient Mode of arrival: wheelchair Limitations: no limitations History of Present Illness HPI Narrative: This is a 73 year old male that presents to the ER for generalized weakness. Reports he had eaten Thanksgiving dinner and taken his medications. Reports he started to feel very lightheaded and his vision was going black. He does not think he completely passed out. Reports since he has been feeling generally weak and nauseous. No other focal complaints or concerns. Denies fever, cough, chest pain, shortness of breath, abdominal pain, or vomiting. Related Data Home Medications Medication Instructions Recorded Confirmed blood sugar diagnostic (SpottlyTouch #10 ea 08/10/19 06/25/23 Ultra Blue Test Strip) enzalutamide 40 mg capsule (Xtandi) 160 mg PO DAILY 12/14/19 06/25/23 leuprolide acetate (6 month) 45 mg 45 mg IM [id number] 12/14/19 06/25/23 intramuscular syringe kit (Lupron Depot) cyanocobalamin (vitamin B-12) 1,000 mcg PO DAILY 05/07/21 06/25/23 1,000 mcg tablet ferrous sulfate 325 mg (65 mg 325 mg PO . every other day 10/05/22 06/25/23 iron) tablet,delayed release calcium carbonate 500 mg calcium 500 mg PO DAILY 12/31/22 06/25/23 (1,250 mg) tablet (Oyster Shell Calcium) cbd topical 1 gel topical DAILY PRN Pain 12/31/22 06/25/23 acetaminophen 325 mg tablet 500 mg PO Q6H PRN Pain 04/07/23 06/25/23 (Tylenol) fexofenadine 180 mg tablet 180 mg PO DAILY PRN Allergy 04/25/23 06/25/23 (Sandy Allergy) Symptoms insulin detemir U-100 100 unit/mL 4 unit subcut BID 04/25/23 06/25/23 (3 mL) subcutaneous pen (Levemir FlexPen) amitriptyline 10 mg tablet 10 mg PO HS 06/25/23 06/25/23 empagliflozin 25 mg tablet 25 mg PO DAILY 06/25/23 06/25/23 (Jardiance) Allergies Allergy/AdvReac Type Severity Reaction Status Date / Time hydrocodone Allergy Mild UN KNOWN Verified 04/29/23 14:26 tramadol Allergy Other Verified 04/29/23 14:26 Review of Systems Review of Systems: CONSTITUTIONAL: Denies fever ENT: Denies rhinorrhea, congestion, sore throat CARDIOVASCULAR: Denies chest pain, or edema. RESPIRATORY: Denies cough or dyspnea. GASTROINTESTINAL: Denies abdominal pain, nausea, vomiting GENITOURINARY: Denies dysuria NEUROLOGIC: Reports generalized weakness. All systems reviewed & are unremarkable except as noted in HPI and below [facility] Past Medical History Medical History (Updated 07/16/23 @ 20:57 by Lori Mathew PA-C) Actinic keratosis of multiple sites of head and neck Acute kidney injury Normal renal ultrasound 04/25/2023. Anemia Arthritis Atherosclerotic heart disease of [place] coronary artery without angina pectoris (02/17/23) Lexiscan stress test on 02/17/2023 reveals small moderately severe fixed defect inferior lateral consistent with [place] with no reversible defects noted with ejection fraction greater than 70% on 02/17/2023. Echo on 02/21/2023 with ejection fraction 60-65% with moderate LVH and grade 1 diastolic dysfunction with trace mitral valve regurgitation. Basal cell carcinoma of scalp (11/2022) 1.8 cm raised, ulcerated lesion on the right anterior scalp Chronic bilateral low back pain with right-sided sciatica Chronic kidney disease, stage 3 COVID-19 (05/15/23) Essential (primary) hypertension Fecal impaction Gastroesophageal reflux disease Hearing loss High cholesterol Insomnia Iron deficiency anemia, unspecified Iron 104 with 25% saturation and ferritin 31 with hemoglobin 11.3 on 03/05/2022. Hemoglobin 11.2 with Iron 81 with 19% saturation and ferritin 36 on 09/24/2022. iron 83 with 24% saturation and ferritin 69 with hemoglobin 11.8 on 06/15/2023. group home (current) use of insulin Lymphedema Bilateral lower extremities treated with sequential pneumatic compression device Mixed hyperlipidemia Total cholesterol 196, triglycerides 168, HDL 66, LDL 102 on 0
[2023-07-16 18:13] LABS: Appearance Urine Clear (Clear); Bilirubin Urine 1+ (Negative); Blood Urine Negative (Negative); Color Urine Dark Yellow (Yellow); Glucose Urine UA 3+ mg/dL (Negative); Ketones Urine Trace mg/dL (Negative); Leukocyte Esterase Ur Negative LEU/UL (Negative); Nitrate Urine Negative (Negative); Protein Urine Negative (Negative); Urobilinogen Urine 0.2 mg/dL (<2.0); pH Urine 5.5 (5.0-9.0)
[2023-07-16 18:18] LABS: Add Urine Microscopic? NO
[2023-07-16 18:21] LABS: Alanine Aminotransferase 56 U/L (6-50); Albumin Level 3.9 g/dL (3.5-5.1); Alkaline Phosphatase 68 U/L (38-126); Anion Gap 11 mmol/L (8-16); Aspartate Amino Transferase 60 U/L (17-59); Bilirubin,Total 0.7 mg/dL (0.2-1.3); Blood Urea Nitrogen 61 mg/dL (9-20); Calcium 9.7 mg/dL (8.4-10.2); Carbon Dioxide 23 mmol/L (22-30); Chloride 98 mmol/L (98-107); Estimated CRCL calculation 24 ml/min; Estimated Glomerular Filt Rate 25; Glucose 162 mg/dL (65-110); Potassium 4.6 mmol/L (3.4-5.0); Sodium 132 mmol/L (137-145)
[2023-07-16] MEDS: ONDANSETRON INJ 4 MG/2 ML VIAL IV PUSH (18:53)
[2023-07-16] MEDS: SODIUM CHLORIDE 0.9% IV 500 ML 999 ML IV CONT (18:54)
[2023-07-16 19:06] LABS: Troponin I < 0.012 ng/mL (0.000-0.034)
[2023-07-16] MEDS: SODIUM CHLORIDE 0.9% IV 1,000 ML 999 ML IV CONT (19:34)
--- NOTE | 2023-07-16 20:26 | PM.IMHP ---
H&P: HPI History of Present Illness Date/Time: 07/16/23 20:00 Chief Complaint: Weakness. Narrative: This is a pleasant 73-year-old male with hypertension, heart failure with preserved ejection fraction, dyslipidemia, chronic kidney disease, type 2 diabetes mellitus, prostate cancer, chronic anemia, obstructive sleep apnea, and GERD who presented to the emergency department for evaluation of weakness. The patient provides the following history. He was admitted to the hospital at the beginning of this month with weakness, COVID, fecal impaction, and hypotension. At that time he was found to have a microcytic anemia and Hemoccult-positive stool and he has outpatient endoscopies scheduled with Dr. Grimes the week of July. He has been doing okay since that time although he reports having ongoing issues with nausea and poor appetite and he endorses an unintentional 70 to 80 lb weight loss since September. The last day or so he has been feeling more weak than usual and this evening after Thanksgiving dinner he and his family members sat down to play a board game at which time he became extremely warm, lightheaded, and nauseated. It sounds as though he may have had a very brief loss of consciousness versus near syncopal episode. [id number] checked his blood pressures and it was reportedly 77/54 so she brought him in for evaluation. Blood pressure on arrival was in the 70 systolic but has responded to IV fluids. The patient wonders if perhaps his blood pressures are to well controlled now that he has lost weight. Preliminary workup in the ED was significant for a BUN and creatinine of 61 and 2.50 respectively (baseline creatinine seems to range from 0.9 to 1.30). He is being admitted in this setting for further treatment and evaluation. At this time he has no specific complaints. He has not noticed a significant decrease in urine output. He denies difficulty starting his stream and is not concerned for urinary retention. He also denies fever, chills, sweats, cold and flu symptoms, chest pain, shortness a breath, vomiting, dysuria, and diarrhea today. Review of Systems Review of Systems: Twelve systems were reviewed and are negative except for as per HPI. [facility] Past Medical History Medical History (Updated 07/16/23 @ 21:13 by Lori Mathew PA-C) Actinic keratosis of multiple sites of head and neck Acute kidney injury Normal renal ultrasound 04/25/2023. Anemia Arthritis Atherosclerotic heart disease of [place] coronary artery without angina pectoris (02/17/23) Lexiscan stress test on 02/17/2023 reveals small moderately severe fixed defect inferior lateral consistent with [place] with no reversible defects noted with ejection fraction greater than 70% on 02/17/2023. Echo on 02/21/2023 with ejection fraction 60-65% with moderate LVH and grade 1 diastolic dysfunction with trace mitral valve regurgitation. Basal cell carcinoma of scalp (11/2022) 1.8 cm raised, ulcerated lesion on the right anterior scalp Chronic bilateral low back pain with right-sided sciatica Chronic kidney disease, stage 3 COVID-19 (05/15/23) Essential (primary) hypertension Fecal impaction Gastroesophageal reflux disease Hearing loss High cholesterol Insomnia Iron deficiency anemia, unspecified Iron 104 with 25% saturation and ferritin 31 with hemoglobin 11.3 on 03/05/2022. Hemoglobin 11.2 with Iron 81 with 19% saturation and ferritin 36 on 09/24/2022. iron 83 with 24% saturation and ferritin 69 with hemoglobin 11.8 on 06/15/2023. [facility] (current) use of insulin Lymphedema Bilateral lower extremities treated with sequential pneumatic compression device Mixed hyperlipidemia Total cholesterol 196, triglycerides 168, HDL 66, LDL 102 on 03/05/2022. Cholesterol 196, triglycerides 153, HDL 64, LDL 105 on 09/24/2022. total cholesterol 180, triglycerides 122, HDL 69 and LDL 90 with ratio 2.6 on 10/28/2022. Obstructive sleep apnea No longer on CPAP after weight loss. Osteoarth
--- NOTE | 2023-07-16 21:48 | ADMGEN ---
This patient, David Connelly, was admitted to 2 Medical Room 242-01. Patient/family oriented to hospital policies and general routines including ID bracelet, bed and alarms, visiting hours, pain management, procedures, bathroom and other care routines, personal items, smoking policy, room service/diet, and visiting hours. Information on how to activate the Rapid Response Team has been discussed. Patient/Family are encouraged to report perceived risks to care and to ask questions if they do not understand what they are told or what they should do.
[2023-07-16 22:05] LABS: Glucose Point of Care 87 mg/dl (65-105)
[2023-07-16 22:36] LABS: Glucose Point of Care 97 mg/dl (65-105)
[2023-07-16 23:06] LABS: Glucose Point of Care 111 mg/dl (65-105)
[2023-07-16] MEDS: LACTATED RINGERS 1,000 ML 100 ML IV CONT (23:42)
[2023-07-17] VITALS (16 sets, daily range): BP systolic 112–142; BP diastolic 50–67; PULSE 50–77; RESP 13–17; TEMP 36.1–36.9; O2SAT 98–100; BMI 26.2
--- NOTE | 2023-07-17 | ECHO_ITS ---
Patient Info Name: David Connelly Age: 73 years : 1950 Gender: Male Ht: 70 in Wt: 182 lbs BSA: 2.03 m2 HR: 78 bpm BP: 138 / 67 mmHg Heart Rhythm: Sinus Rhythm Technical Quality: Good Exam Date: 07/17/2023 11:20 AM Exam Location: [facility] Patient Status: Inpatient Admit Date: 07/16/2023 Staff Ordering Physician: Ziyad Lin MD Automation Technician: Nicolette Fajardo RDCS Attending Provider: Jg Thornton MD Exam Type: CA echo doppler color flow Study Info Indications - syncope Complete two-dimensional, color flow and Doppler transthoracic echocardiogram is performed. Summary 1. Complete two-dimensional, color flow and Doppler transthoracic echocardiogram is performed. 2. Left ventricular chamber dimension is normal. 3. Left ventricular systolic function is normal, estimated at 60-65%. 4. The left ventricular diastolic function is grade I diastolic dysfunction. 5. Right ventricular systolic function is normal. 6. There is mild to moderate mitral valve regurgitation. 7. There is mild tricuspid valve regurgitation. Left Ventricle Left ventricular chamber dimension is normal. Left ventricular systolic function is normal, estimated at 60-65%. There is no increased left ventricular wall thickness. The left ventricular diastolic function is grade I diastolic dysfunction. Global longitudinal strain is abnormal at -16 %. Right Ventricle Right ventricular chamber dimension is normal. Right ventricular systolic function is normal. Left Atria Left atrial chamber dimension is normal. Right Atria Right atrial chamber dimension is normal. Atrial Septum Intact interatrial septum visualized by color flow imaging. Aortic Valve The aortic valve is probable trileaflet. There is no aortic valve stenosis. There is no aortic valve regurgitation. There is moderate aortic valve calcification. Pulmonic Valve The pulmonic valve is not well visualized. Mitral Valve The mitral valve has thickened leaflets. There is mild to moderate mitral valve regurgitation. The mitral valve annulus is severely calcified. Tricuspid Valve There is mild tricuspid valve regurgitation. Pericardium/Pleural The pericardium appears epicardial fat pad. Inferior Vena Cava Normal inferior vena cava with >50% collapse upon inspiration consistent with normal right atrial pressure, 3 mmHg. Aorta The aortic root size at the sinus of Valsalva is normal. Left Ventricular Outflow Tract Name Value Normal LVOT 2D LVOT Diameter 2.0 cm LVOT Doppler LVOT Peak Gradient 4 mmHg LVOT Mean Gradient 2 mmHg LVOT VTI 21 cm LVOT VTI/AV VTI Ratio 0.6 LVOT Stroke Volume 69 ml LVOT CO 13.2 l/min LVOT CI 6.5 l/min/m2 Pulmonic Valve Name Value Normal PV Doppler PV Peak Gradient
[2023-07-17] MEDS: ACETAMINOPHEN 325 MG TABLET 650 MG PO (05:15)
[2023-07-17 06:13] LABS: Hematocrit 31.9 % (42.0-52.0); Hemoglobin 10.5 g/dL (14.0-18.0); Mean Corpuscular HGB Conc 32.9 g/dl (32-36); Mean Corpuscular Hemoglobin 31.2 pg (26-34); Mean Corpuscular Volume 94.7 fl (80-100); Mean Platelet Volume 10.1 fl (7.4-10.4); Platelet Count Result 180 k/mm3 (150-375); Red Blood Count 3.37 M/mm3 (4.6-6.20); Red Cell Distribution Width 14.6 % (11.5-14.5); White Blood Count 3.9 K/mm3 (4.5-10.0)
[2023-07-17 06:22] LABS: Alanine Aminotransferase 45 U/L (6-50); Albumin Level 3.2 g/dL (3.5-5.1); Alkaline Phosphatase 61 U/L (38-126); Anion Gap 8 mmol/L (8-16); Aspartate Amino Transferase 46 U/L (17-59); Bilirubin,Total 0.6 mg/dL (0.2-1.3); Blood Urea Nitrogen 50 mg/dL (9-20); Calcium 8.8 mg/dL (8.4-10.2); Carbon Dioxide 24 mmol/L (22-30); Chloride 102 mmol/L (98-107); Estimated CRCL calculation 29 ml/min; Estimated Glomerular Filt Rate 31; Glucose 69 mg/dL (65-110); Potassium 4.2 mmol/L (3.4-5.0); Sodium 134 mmol/L (137-145)
[2023-07-17 06:49] LABS: Glucose Point of Care 68 mg/dl (65-105)
[2023-07-17 07:15] LABS: Glucose Point of Care 94 mg/dl (65-105)
[2023-07-17 08:23] LABS: Glucose Point of Care 140 mg/dl (65-105)
[2023-07-17] MEDS: CHOLECALCIFEROL 1,000 UNITS TABLET 2000 UNITS PO (09:07)
[2023-07-17] MEDS: TAMSULOSIN HCL 0.4 MG CAPSULE PO (09:07)
[2023-07-17] MEDS: DUTASTERIDE 0.5 MG CAPSULE PO (09:07)
[2023-07-17] MEDS: CYANOCOBALAMIN 1,000 MCG TABLET 1000 MCG PO (09:07)
[2023-07-17] MEDS: FENOFIBRATE 160 MG TABLET PO (09:07)
[2023-07-17] MEDS: LACTATED RINGERS 1,000 ML 100 ML IV CONT ×2 (09:21→20:21)
[2023-07-17 11:52] LABS: Glucose Point of Care 137 mg/dl (65-105)
--- NOTE | 2023-07-17 14:17 | PM.IMPN ---
Progress Note: A&P Assessment and Plan (1) Acute on chronic renal failure: Qualifiers: Acute renal failure type: unspecified Chronic kidney disease stage: stage 3 (moderate) Chronic kidney disease stage 3 subtype: stage 3a (GFR 45-59) Qualified Code(s): N17.9 - Acute kidney failure, unspecified; N18.31 - Chronic kidney disease, stage 3a Code(s): N17.9 - Acute kidney failure, unspecified; N18.9 - Chronic kidney disease, unspecified Status: Acute Assessment and Plan: The patient has acute on chronic kidney injury. Likely due to a combination of hypoperfusion from hypotension and hypovolemia from dehydration in addition to ongoing diuretic and RADHA-inhibitor use. He is not retaining urine. Continue gentle rehydration Avoid nephrotoxic agents. Monitor strict I/O. monitor renal function (2) Near syncope: Code(s): R55 - Syncope and collapse Status: Acute Assessment and Plan: Patient had syncope versus near-syncope as detailed above, most likely due to hypotension. Continue IV fluid rehydration. Hold antihypertensives and diuretics. Monitor on telemetry to rule out cardiac dysrhythmia which seems unlikely. ECHO showed normal EF, grade I diastolic dysfunction no regional wall motion abnormalities (3) Hypotension: Code(s): I95.9 - Hypotension, unspecified Status: Acute Assessment and Plan: Patient has lost 70 to 80 lb since September and may very well be able to come off of his antihypertensives at this point. He is also bit dry. Monitor orthostatic vital signs. Initiate fall precautions. Plan is as detailed above. Patient has outpatient workup and scheduled for endoscopy in Early July (4) Weight loss: Code(s): R63.4 - Abnormal weight loss Status: Acute Assessment and Plan: Unintentional 70 to 80 lb weight loss since September, scheduled for endoscopy per Dr. Grimes at the beginning of July. (5) Chronic anemia: Code(s): D64.9 - Anemia, unspecified Status: Acute Assessment and Plan: hb 10.5, iron panel ordered iron replacement per iron panel results (6) Type 2 diabetes mellitus: Code(s): E11.9 - Type 2 diabetes mellitus without complications Status: Acute Assessment and Plan: Hold Jardiance and detemir for now given poor intake. Initiate sliding scale insulin, Accu-Cheks, and hypoglycemic protocol. Plan DVT prophylaxis on Sq Heparin Subjective Date/time seen: 07/17/23 14:17 Interval history: Patient noted loose bowel movement and dyusria feeling better today Creatinine 2.1 from 2.5 Review of Systems Review of Systems: Twelve systems were reviewed and are negative except for as per HPI. Exam Narrative: General: Chronically ill, nontoxic-appearing male sitting up in bed. Weight: 81.8 kg. BMI: 25.9. HEENT: PERRL, EOMI. Sclera anicteric. Tacky mucous membranes. Neck: Supple. Respiratory: Lungs are clear to auscultation bilaterally. Cardiovascular: Regular rate and rhythm with S1-S2. Gastrointestinal: Abdomen is soft, nontender, and nondistended with positive bowel sounds. Skin: Warm and dry. Generalized pallor. Extremities: No cyanosis, clubbing, or significant edema. Radial and pedal pulses intact. Neurological: Alert. Cranial nerves 2-12 are grossly intact. No gross focal deficits to casual conversation. Psychiatric: Pleasant and cooperative with normal mood and affect. Judgment and insight intact. Objective Data Vital Signs Vital Signs: Vital Signs - 24 hr 07/16/23 17:22 07/16/23 17:46 07/16/23 18:01 Temperature 95.7 F L Pulse Rate 64 59 L 57 L Respiratory Rate 20 24 H 22 H Blood Pressure 111/50 L 114/64 119/45 L Pulse Oximetry 100 100 100 Oxygen Delivery Room Air 07/16/23 19:00 07/16/23 19:15 07/16/23 19:30 Temperature Pulse Rate 58 L 59 L 57 L Respiratory Rate 16 15 14 Blood Pressure 129/46
[2023-07-17 16:31] LABS: Iron 52 ug/dL (49-181)
[2023-07-17 16:41] LABS: Percent Iron Saturation 21 % (20-50)
[2023-07-17 17:01] LABS: Glucose Point of Care 93 mg/dl (65-105)
--- NOTE | 2023-07-17 19:25 | PHAR ---
DRUG NAME: XTANDI INGREDIENTS: ENZALUTAMIDE -- 40 MG RELATED DOCUMENTS: DRUGDEX EVALUATIONS - ENZALUTAMIDE COLOR: YELLOW SHAPE: COWLITZ IMPRINT: E 40 FORM: ORAL TABLET
[2023-07-17] MEDS: HEPARIN SODIUM 5,000 UNITS/ML VIAL 5000 UNITS SUB-Q (20:21)
[2023-07-17 21:03] LABS: Glucose Point of Care 116 mg/dl (65-105)
[2023-07-18] VITALS (17 sets, daily range): BP systolic 113–166; BP diastolic 47–67; PULSE 53–75; RESP 15–18; TEMP 35.9–36.5; O2SAT 98–100
[2023-07-18] MEDS: ACETAMINOPHEN 325 MG TABLET 650 MG PO ×3 (04:09→21:00)
[2023-07-18 05:51] LABS: Basophils Percent Auto 0.6 % (0.2-1.2); Eosinophils Absolute Auto 0.1 K/mm3 (0-0.3); Eosinophils Percent Auto 2.6 % (0-4.4); Hematocrit 30.5 % (42.0-52.0); Hemoglobin 10.2 g/dL (14.0-18.0); Immature Granulocyte Absolute 0.02 K/mm3 (0.00-0.031); Immature Granulocyte Percent A 0.6 % (0-0.5); Lymphocytes Absolute Auto 0.94 K/mm3 (0.9-3.2); Lymphocytes Percent Auto 27.6 % (18.3-44.2); Mean Corpuscular HGB Conc 33.4 g/dl (32-36); Mean Corpuscular Hemoglobin 31.6 pg (26-34); Mean Corpuscular Volume 94.4 fl (80-100); Mean Platelet Volume 9.9 fl (7.4-10.4); Monocytes Absolute Auto 0.5 K/mm3 (0.1-0.6); Monocytes Percent Auto 13.8 % (2.6-8.5); Neutrophils Absolute Auto 1.9 K/mm3 (1.3-6.7); Neutrophils Percent Auto 54.8 % (45.5-73.1); Platelet Count Result 157 k/mm3 (150-375); Red Blood Count 3.23 M/mm3 (4.6-6.20); Red Cell Distribution Width 14.6 % (11.5-14.5); White Blood Count 3.4 K/mm3 (4.5-10.0)
[2023-07-18 06:03] LABS: Lactic Acid Reflex 0.9 mmol/L (0.7-2.0)
[2023-07-18 06:04] LABS: Alanine Aminotransferase 36 U/L (6-50); Albumin Level 2.8 g/dL (3.5-5.1); Alkaline Phosphatase 54 U/L (38-126); Anion Gap 5 mmol/L (8-16); Aspartate Amino Transferase 40 U/L (17-59); Bilirubin,Total 0.5 mg/dL (0.2-1.3); Blood Urea Nitrogen 38 mg/dL (9-20); Calcium 8.6 mg/dL (8.4-10.2); Carbon Dioxide 24 mmol/L (22-30); Chloride 105 mmol/L (98-107); Estimated CRCL calculation 37 ml/min; Estimated Glomerular Filt Rate 42; Glucose 83 mg/dL (65-110); Sodium 134 mmol/L (137-145)
[2023-07-18] MEDS: LACTATED RINGERS 1,000 ML 100 ML IV CONT ×2 (06:07→16:34)
--- NOTE | 2023-07-18 08:06 | PM.IMPN ---
Progress Note: A&P Assessment and Plan (1) Acute on chronic renal failure: Qualifiers: Acute renal failure type: unspecified Chronic kidney disease stage: stage 3 (moderate) Chronic kidney disease stage 3 subtype: stage 3a (GFR 45-59) Qualified Code(s): N17.9 - Acute kidney failure, unspecified; N18.31 - Chronic kidney disease, stage 3a Code(s): N17.9 - Acute kidney failure, unspecified; N18.9 - Chronic kidney disease, unspecified Status: Acute Assessment and Plan: The patient has acute on chronic kidney injury. Likely due to a combination of hypoperfusion from hypotension and hypovolemia from dehydration in addition to ongoing diuretic and RADHA-inhibitor use. He is not retaining urine. Creatinine is trending down, on gentle IV fluid Follow-up BMP (2) Near syncope: Code(s): R55 - Syncope and collapse Status: Acute Assessment and Plan: Patient had syncope versus near-syncope as detailed above, most likely due to hypotension. Patient has no focal weakness, Possible due to hypotension, echocardiogram shows normal EF, no significant valvular disease Hold antihypertensives and diuretics. (3) Hypotension: Code(s): I95.9 - Hypotension, unspecified Status: Acute Assessment and Plan: Patient has lost 70 to 80 lb since September and may very well be able to come off of his antihypertensives at this point. He is also bit dry. Blood pressure stable now (4) Weight loss: Code(s): R63.4 - Abnormal weight loss Status: Acute Assessment and Plan: Unintentional 70 to 80 lb weight loss since September, scheduled for endoscopy per Dr. Grimes at the beginning of July. Patient has no appetite, nausea vomiting intermittently after taking meals. Suspecting gastroparesis due to diabetes (5) Chronic anemia: Code(s): D64.9 - Anemia, unspecified Status: Acute Assessment and Plan: hb 10.5, iron panel ordered iron replacement per iron panel results (6) Type 2 diabetes mellitus: Code(s): E11.9 - Type 2 diabetes mellitus without complications Status: Acute Assessment and Plan: Hold Jardiance and detemir for now given poor intake. Initiate sliding scale insulin, Accu-Cheks, and hypoglycemic protocol. Plan DVT prophylaxis on Sq Heparin Subjective Date/time seen: 07/18/23 08:06 Interval history: I saw exam patient today, patient still has loose stool, and dysuria is improving. Patient noted loose bowel movement and dyusria, labs reviewed, kidney function continue to improve Exam Narrative: General: Chronically ill, nontoxic-appearing male sitting up in bed. Weight: 81.8 kg. BMI: 25.9. HEENT: PERRL, EOMI. Sclera anicteric. Tacky mucous membranes. Neck: Supple. Respiratory: Lungs are clear to auscultation bilaterally. Cardiovascular: Regular rate and rhythm with S1-S2. Gastrointestinal: Abdomen is soft, nontender, and nondistended with positive bowel sounds. Skin: Warm and dry. Generalized pallor. Extremities: No cyanosis, clubbing, or significant edema. Radial and pedal pulses intact. Neurological: Alert. Cranial nerves 2-12 are grossly intact. No gross focal deficits to casual conversation. Psychiatric: Pleasant and cooperative with normal mood and affect. Judgment and insight intact. Objective Data Vital Signs Vital Signs: Vital Signs - 24 hr 07/17/23 09:20 07/17/23 09:22 07/17/23 09:20 Temperature 97.3 F L 97.0 F L 97.0 F L Pulse Rate 52 L 54 L 54 L Respiratory Rate 16 16 16 Blood Pressure 130/51 L 138/67 138/67 Pulse Oximetry 100 100 100 Oxygen Delivery 07/17/23 09:21 07/17/23 13:20 07/17/23 12:06 Temperature 97.3 F L 98.4 F Pulse Rate 65 57 L 57 L Respiratory Rate 16 16 Blood Pressure 126/59 L 142/58 H Pulse Oximetry 100 100 Oxygen Delivery 07/17/23 16:03 07/17/23 20:49 07/17/23 20:00 Temperature 97.1 F L Pulse Rate 57 L 67 Re
[2023-07-18 08:28] LABS: Glucose Point of Care 73 mg/dl (65-105)
[2023-07-18] MEDS: TAMSULOSIN HCL 0.4 MG CAPSULE PO (09:45)
[2023-07-18] MEDS: CYANOCOBALAMIN 1,000 MCG TABLET 1000 MCG PO (09:45)
[2023-07-18] MEDS: CHOLECALCIFEROL 1,000 UNITS TABLET 2000 UNITS PO (09:45)
[2023-07-18] MEDS: FENOFIBRATE 160 MG TABLET PO (09:46)
[2023-07-18] MEDS: FERROUS SULFATE 325 MG TABLET DR PO (09:46)
[2023-07-18] MEDS: DUTASTERIDE 0.5 MG CAPSULE PO (09:46)
[2023-07-18] MEDS: HEPARIN SODIUM 5,000 UNITS/ML VIAL 5000 UNITS SUB-Q ×2 (09:46→21:00)
[2023-07-18 11:50] LABS: Glucose Point of Care 118 mg/dl (65-105)
[2023-07-18] MEDS: carvediloL 12.5 MG TABLET BY MOUTH ×2 (12:28→21:00)
--- NOTE | 2023-07-18 12:31 | PC.NURSE ---
Spoke with pharmacist to see if I could give 0900 dose of coreg now at 1230 or if it would be too close to next dose. Patient takes coreg Q12 HR. Pharmacist says that I may give dose now and keep scheduled time for next dose as well
[2023-07-18] MEDS: ONDANSETRON HCL ODT 4 MG TABLET PO (13:14)
[2023-07-18 16:46] LABS: Glucose Point of Care 97 mg/dl (65-105)
[2023-07-18 18:58] LABS: IFOB Positive Control Positive; Immunochemical Fecal Occult Bl Negative (N)
[2023-07-18 20:44] LABS: Glucose Point of Care 121 mg/dl (65-105)
[2023-07-19] VITALS (12 sets, daily range): BP systolic 106–139; BP diastolic 46–78; PULSE 52–70; RESP 16–20; TEMP 36.4–36.9; O2SAT 98–100
--- NOTE | 2023-07-19 08:09 | PM.IMPN ---
Progress Note: A&P Assessment and Plan (1) Type 2 diabetes mellitus: Code(s): E11.9 - Type 2 diabetes mellitus without complications Status: Acute (2) Weight loss: Code(s): R63.4 - Abnormal weight loss Status: Acute (3) Near syncope: Code(s): R55 - Syncope and collapse Status: Acute (4) Acute kidney injury: Code(s): N17.9 - Acute kidney failure, unspecified Status: Acute (5) Diarrhea: Code(s): R19.7 - Diarrhea, unspecified Status: Acute (6) Fecal impaction: Code(s): K56.41 - Fecal impaction Status: Acute (7) Gastroenteritis: Code(s): K52.9 - Noninfective gastroenteritis and colitis, unspecified Status: Acute Plan Assessment and Plan (1) Acute on chronic renal failure: ?Qualifiers: ?Acute renal failure type:?unspecified??Chronic kidney disease stage:?stage 3 (moderate)??Chronic kidney disease stage 3 subtype:?stage 3a (GFR 45-59)? Qualified Code(s):?N17.9 - Acute kidney failure, unspecified; N18.31 - Chronic kidney disease, stage 3a ?Code(s): N17.9 - Acute kidney failure, unspecified; N18.9 - Chronic kidney disease, unspecified ?Status:?Acute ?Assessment and Plan: The patient has acute on chronic kidney injury. Likely due to a combination of hypoperfusion from hypotension and hypovolemia from dehydration in addition to ongoing diuretic and RADHA-inhibitor use. He is not retaining urine. Creatinine is trending down, on gentle IV fluid Discontinue IV fluid Follow-up BMP tomorrow (2) Near syncope: ?Code(s): R55 - Syncope and collapse ?Status:?Acute ?Assessment and Plan: Patient had syncope versus near-syncope as detailed above, most likely due to hypotension. Patient has no focal weakness, Possible due to hypotension, echocardiogram shows normal EF, no significant valvular disease Hold antihypertensives and diuretics. Blood pressure stable (3) Hypotension: ?Code(s): I95.9 - Hypotension, unspecified ?Status:?Acute ?Assessment and Plan: Patient has lost 70 to 80 lb since September and may very well be able to come off of his antihypertensives at this point. He is also bit dry. Blood pressure stable now (4) Weight loss: ?Code(s): R63.4 - Abnormal weight loss ?Status:?Acute ?Assessment and Plan: Unintentional 70 to 80 lb weight loss since September, scheduled for endoscopy per Dr. Grimes at the beginning of July. Patient has no appetite, nausea vomiting intermittently after taking meals. Suspecting gastroparesis due to diabetes (5) Chronic anemia: ?Code(s): D64.9 - Anemia, unspecified ?Status:?Acute ?Assessment and Plan: hb 10.5, iron panel ordered iron replacement per iron panel results (6) Type 2 diabetes mellitus: ?Code(s): E11.9 - Type 2 diabetes mellitus without complications ?Status:?Acute ?Assessment and Plan: Hold Jardiance and detemir for now given poor intake. Initiate sliding scale insulin, Accu-Cheks, and hypoglycemic protocol. Subjective Date/time seen: 07/19/23 08:09 Interval history: I saw exam patient today, patient is feeling better, still has nausea, denies abdomen pain diarrhea patient still has loose stools, but the last bowel movements, alabs reviewed, kidney function continue to improve Exam Narrative: General: Chronically ill, nontoxic-appearing male sitting up in bed. Weight: 81.8 kg. BMI: 25.9. HEENT: PERRL, EOMI. Sclera anicteric. Tacky mucous membranes. Neck: Supple. Respiratory: Lungs are clear to auscultation bilaterally. Cardiovascular: Regular rate and rhythm with S1-S2. Gastrointestinal: Abdomen is soft, nontender, and nondistended with positive bowel sounds. Skin: Warm and dry. Generalized pallor. Extremities: No cyanosis, clubbing, or significant edema. Radial and pedal pulses intact. Neurological: Alert. Cranial nerves 2-12 are grossly intact. No gross foc
[2023-07-19 08:30] LABS: Glucose Point of Care 93 mg/dl (65-105)
[2023-07-19 09:36] LABS: Anion Gap 9 mmol/L (8-16); Blood Urea Nitrogen 29 mg/dL (9-20); Calcium 8.7 mg/dL (8.4-10.2); Carbon Dioxide 23 mmol/L (22-30); Chloride 103 mmol/L (98-107); Estimated CRCL calculation 45 ml/min; Estimated Glomerular Filt Rate 54; Glucose 149 mg/dL (65-110); Sodium 135 mmol/L (137-145)
[2023-07-19] MEDS: ONDANSETRON HCL ODT 4 MG TABLET PO (11:07)
[2023-07-19] MEDS: FENOFIBRATE 160 MG TABLET PO (11:08)
[2023-07-19] MEDS: DUTASTERIDE 0.5 MG CAPSULE PO (11:08)
[2023-07-19] MEDS: CHOLECALCIFEROL 1,000 UNITS TABLET 2000 UNITS PO (11:08)
[2023-07-19] MEDS: CYANOCOBALAMIN 1,000 MCG TABLET 1000 MCG PO (11:08)
[2023-07-19] MEDS: TAMSULOSIN HCL 0.4 MG CAPSULE PO (11:08)
[2023-07-19] MEDS: HEPARIN SODIUM 5,000 UNITS/ML VIAL 5000 UNITS SUB-Q ×2 (11:09→20:37)
[2023-07-19] MEDS: carvediloL 12.5 MG TABLET BY MOUTH ×2 (11:13→20:37)
[2023-07-19 11:44] LABS: Glucose Point of Care 99 mg/dl (65-105)
[2023-07-19 16:54] LABS: Glucose Point of Care 105 mg/dl (65-105)
[2023-07-19 20:33] LABS: Glucose Point of Care 145 mg/dl (65-105)
[2023-07-19] MEDS: ACETAMINOPHEN 325 MG TABLET 650 MG PO (20:36)
[2023-07-20] VITALS (15 sets, daily range): BP systolic 100–136; BP diastolic 40–70; PULSE 47–73; RESP 16–20; TEMP 35.8–36.6; O2SAT 98–100
[2023-07-20 07:03] LABS: Anion Gap 3 mmol/L (8-16); Blood Urea Nitrogen 24 mg/dL (9-20); Calcium 8.4 mg/dL (8.4-10.2); Carbon Dioxide 26 mmol/L (22-30); Chloride 106 mmol/L (98-107); Estimated CRCL calculation 49 ml/min; Estimated Glomerular Filt Rate 59; Glucose 94 mg/dL (65-110); Potassium 4.5 mmol/L (3.4-5.0); Sodium 135 mmol/L (137-145)
--- NOTE | 2023-07-20 08:00 | PM.IMPN ---
Progress Note: A&P Assessment and Plan (1) Type 2 diabetes mellitus: Code(s): E11.9 - Type 2 diabetes mellitus without complications Status: Acute (2) Weight loss: Code(s): R63.4 - Abnormal weight loss Status: Acute (3) Near syncope: Code(s): R55 - Syncope and collapse Status: Acute (4) Acute kidney injury: Code(s): N17.9 - Acute kidney failure, unspecified Status: Acute (5) Diarrhea: Code(s): R19.7 - Diarrhea, unspecified Status: Acute (6) Fecal impaction: Code(s): K56.41 - Fecal impaction Status: Acute (7) Gastroenteritis: Code(s): K52.9 - Noninfective gastroenteritis and colitis, unspecified Status: Acute Plan Assessment and Plan (1) Acute on chronic renal failure: ?Qualifiers: ?Acute renal failure type:?unspecified??Chronic kidney disease stage:?stage 3 (moderate)??Chronic kidney disease stage 3 subtype:?stage 3a (GFR 45-59)? Qualified Code(s):?N17.9 - Acute kidney failure, unspecified; N18.31 - Chronic kidney disease, stage 3a ?Code(s): N17.9 - Acute kidney failure, unspecified; N18.9 - Chronic kidney disease, unspecified ?Status:?Acute ?Assessment and Plan: The patient has acute on chronic kidney injury. Likely due to a combination of hypoperfusion from hypotension and hypovolemia from dehydration in addition to ongoing diuretic and RADHA-inhibitor use. He is not retaining urine. Creatinine is trending down, on gentle IV fluid Discontinue IV fluid Cr is down to 1.2 Follow-up BMP tomorrow (2) Near syncope: ?Code(s): R55 - Syncope and collapse ?Status:?Acute ?Assessment and Plan: Patient had syncope versus near-syncope as detailed above, most likely due to hypotension. Patient has no focal weakness, Possible due to hypotension, echocardiogram shows normal EF, no significant valvular disease Hold antihypertensives and diuretics. Blood pressure lower side add midodrine p.o. Likely secondary to poor oral intake (3) Hypotension: ?Code(s): I95.9 - Hypotension, unspecified ?Status:?Acute ?Assessment and Plan: Patient has lost 70 to 80 lb since September and may very well be able to come off of his antihypertensives at this point. He is also bit dry. Blood pressure stable now (4) Weight loss: ?Code(s): R63.4 - Abnormal weight loss ?Status:?Acute ?Assessment and Plan: Unintentional 70 to 80 lb weight loss since September, scheduled for endoscopy per Dr. Grimes at the beginning of July. Patient has no appetite, nausea intermittently after taking meals. denies vomiting Suspecting gastroparesis due to diabetes Start Reglan 5 mg a.c. Consult GI for evaluation (5) Chronic anemia: ?Code(s): D64.9 - Anemia, unspecified ?Status:?Acute ?Assessment and Plan: hb 10.5, iron panel ordered iron replacement per iron panel results (6) Type 2 diabetes mellitus: ?Code(s): E11.9 - Type 2 diabetes mellitus without complications ?Status:?Acute ?Assessment and Plan: Hold Jardiance and detemir for now given poor intake. Initiate sliding scale insulin, Accu-Cheks, and hypoglycemic protocol. Subjective Date/time seen: 07/20/23 08:00 Interval history: Blood pressure on the low side, poor oral intake, patient still has nausea, patient denies vomiting Exam Narrative: General: Chronically ill, nontoxic-appearing male sitting up in bed. Weight: 81.8 kg. BMI: 25.9. HEENT: PERRL, EOMI. Sclera anicteric. Tacky mucous membranes. Neck: Supple. Respiratory: Lungs are clear to auscultation bilaterally. Cardiovascular: Regular rate and rhythm with S1-S2. Gastrointestinal: Abdomen is soft, nontender, and nondistended with positive bowel sounds. Skin: Warm and dry. Generalized pallor. Extremities: No cyanosis, clubbing, or significant edema. Radial and pedal pulses intact. Neurological: Alert. Cranial nerves 2-12 are grossl
[2023-07-20 08:31] LABS: Glucose Point of Care 99 mg/dl (65-105)
--- NOTE | 2023-07-20 08:43 | P.CDI_ITS ---
CDI Query Clarification Request BMI 26.2 Nutritional Diagnostic Statement Severe protein calorie malnutrition related to chronic disease as evidenced by 25% weight loss/ 10 months; intakes < 75% meals > 1 month; moderate muscle wasting and fat loss. Please refer to the comprehensive nutrition assessment for further information. Please clarify severity of protein calorie malnutrition if known: * Mild * Moderate * Severe * Other/Unspecified <Roseline Leblanc RN - Last Filed: 07/20/23 08:48> Clarified Diagnosis Clarified Diagnosis: Moderate malnutrition <Sarah Malone MD - Last Filed: 07/20/23 17:49>
[2023-07-20] MEDS: FERROUS SULFATE 325 MG TABLET DR PO (08:47)
[2023-07-20] MEDS: CYANOCOBALAMIN 1,000 MCG TABLET 1000 MCG PO (08:47)
[2023-07-20] MEDS: HEPARIN SODIUM 5,000 UNITS/ML VIAL 5000 UNITS SUB-Q ×2 (08:47→19:51)
[2023-07-20] MEDS: TAMSULOSIN HCL 0.4 MG CAPSULE PO (08:47)
[2023-07-20] MEDS: MIDODRINE HCL 10 MG TABLET PO ×3 (08:47→17:10)
[2023-07-20] MEDS: CHOLECALCIFEROL 1,000 UNITS TABLET 2000 UNITS PO (08:47)
[2023-07-20] MEDS: DUTASTERIDE 0.5 MG CAPSULE PO (08:47)
[2023-07-20] MEDS: FENOFIBRATE 160 MG TABLET PO (08:47)
[2023-07-20] MEDS: METOCLOPRAMIDE HCL 5 MG TABLET PO ×3 (11:46→19:51)
[2023-07-20 11:47] LABS: Glucose Point of Care 114 mg/dl (65-105)
[2023-07-20 17:46] LABS: Glucose Point of Care 86 mg/dl (65-105)
[2023-07-20] MEDS: carvediloL 12.5 MG TABLET BY MOUTH (19:51)
[2023-07-20 20:43] LABS: Glucose Point of Care 122 mg/dl (65-105)
[2023-07-20] MEDS: ACETAMINOPHEN 325 MG TABLET 650 MG PO (23:26)
[2023-07-21] VITALS (11 sets, daily range): BP systolic 128–154; BP diastolic 51–67; PULSE 55–80; RESP 18–19; TEMP 36.2–36.7; O2SAT 98–100
[2023-07-21] MEDS: METOCLOPRAMIDE HCL 5 MG TABLET PO ×4 (05:58→21:06)
[2023-07-21 06:27] LABS: Anion Gap 5 mmol/L (8-16); Blood Urea Nitrogen 22 mg/dL (9-20); Calcium 8.4 mg/dL (8.4-10.2); Carbon Dioxide 24 mmol/L (22-30); Chloride 105 mmol/L (98-107); Estimated CRCL calculation 53 ml/min; Estimated Glomerular Filt Rate > 60; Glucose 87 mg/dL (65-110); Potassium 4.1 mmol/L (3.4-5.0); Sodium 134 mmol/L (137-145)
[2023-07-21 08:36] LABS: Glucose Point of Care 106 mg/dl (65-105)
[2023-07-21] MEDS: carvediloL 12.5 MG TABLET BY MOUTH ×2 (09:24→21:06)
[2023-07-21] MEDS: MIDODRINE HCL 10 MG TABLET PO ×3 (09:28→16:54)
[2023-07-21] MEDS: TAMSULOSIN HCL 0.4 MG CAPSULE PO (09:28)
[2023-07-21] MEDS: FENOFIBRATE 160 MG TABLET PO (09:28)
[2023-07-21] MEDS: DUTASTERIDE 0.5 MG CAPSULE PO (09:29)
[2023-07-21] MEDS: HEPARIN SODIUM 5,000 UNITS/ML VIAL 5000 UNITS SUB-Q ×2 (09:29→21:06)
[2023-07-21] MEDS: CHOLECALCIFEROL 1,000 UNITS TABLET 2000 UNITS PO (09:29)
[2023-07-21] MEDS: CYANOCOBALAMIN 1,000 MCG TABLET 1000 MCG PO (09:29)
[2023-07-21 12:33] LABS: Glucose Point of Care 185 mg/dl (65-105)
--- NOTE | 2023-07-21 12:43 | PM.IMPN ---
Progress Note: A&P Assessment and Plan (1) Type 2 diabetes mellitus: Code(s): E11.9 - Type 2 diabetes mellitus without complications Status: Acute (2) Weight loss: Code(s): R63.4 - Abnormal weight loss Status: Acute (3) Near syncope: Code(s): R55 - Syncope and collapse Status: Acute (4) Acute kidney injury: Code(s): N17.9 - Acute kidney failure, unspecified Status: Acute (5) Diarrhea: Code(s): R19.7 - Diarrhea, unspecified Status: Acute (6) Fecal impaction: Code(s): K56.41 - Fecal impaction Status: Acute (7) Gastroenteritis: Code(s): K52.9 - Noninfective gastroenteritis and colitis, unspecified Status: Acute Plan Assessment and Plan (1) Acute on chronic renal failure: ?Qualifiers: ?Acute renal failure type:?unspecified??Chronic kidney disease stage:?stage 3 (moderate)??Chronic kidney disease stage 3 subtype:?stage 3a (GFR 45-59)? Qualified Code(s):?N17.9 - Acute kidney failure, unspecified; N18.31 - Chronic kidney disease, stage 3a ?Code(s): N17.9 - Acute kidney failure, unspecified; N18.9 - Chronic kidney disease, unspecified ?Status:?Acute ?Assessment and Plan: The patient has acute on chronic kidney injury. Likely due to a combination of hypoperfusion from hypotension and hypovolemia from dehydration in addition to ongoing diuretic and RADHA-inhibitor use. He is not retaining urine. Creatinine is trending down, on gentle IV fluid creat is better at 1.1 (2) Near syncope: ?Code(s): R55 - Syncope and collapse ?Status:?Acute ?Assessment and Plan: Patient had syncope versus near-syncope as detailed above, most likely due to hypotension. Patient has no focal weakness, Possible due to hypotension, echocardiogram shows normal EF, no significant valvular disease Hold antihypertensives and diuretics. Blood pressure lower side add midodrine p.o. Likely secondary to poor oral intake pt having bout of diarrhea today await results of stool culture (3) Hypotension: ?Code(s): I95.9 - Hypotension, unspecified ?Status:?Acute ?Assessment and Plan: Patient has lost 70 to 80 lb since September and may very well be able to come off of his antihypertensives at this point. He is also bit dry. Blood pressure stable now (4) Weight loss: ?Code(s): R63.4 - Abnormal weight loss ?Status:?Acute ?Assessment and Plan: Unintentional 70 to 80 lb weight loss since September, scheduled for endoscopy per Dr. Grimes at the beginning of July. Patient has no appetite, nausea intermittently after taking meals. denies vomiting Suspecting gastroparesis due to diabetes Start Reglan 5 mg a.c. Consult GI for evaluation (5) Chronic anemia: ?Code(s): D64.9 - Anemia, unspecified ?Status:?Acute ?Assessment and Plan: hb 10.5, iron panel ordered iron replacement per iron panel results (6) Type 2 diabetes mellitus: ?Code(s): E11.9 - Type 2 diabetes mellitus without complications ?Status:?Acute ?Assessment and Plan: Hold Jardiance and detemir for now given poor intake. Initiate sliding scale insulin, Accu-Cheks, and hypoglycemic protocol. Subjective Date/time seen: 07/21/23 12:43 Interval history: This is a pleasant 73-year-old male with hypertension, heart failure with preserved ejection fraction, dyslipidemia, chronic kidney disease, type 2 diabetes mellitus, prostate cancer, chronic anemia, obstructive sleep apnea, and GERD who presented to the emergency department for evaluation of weakness. Pt has ongoing diarrhea concerned about weight loss awaiting to see GI MD pt was receiving hydration on admission Review of Systems Review of Systems: Diarrhea Exam Narrative: General: Chronically ill, nontoxic-appearing male sitting up in bed. Weight: 81.8 kg. BMI: 25.9. HEENT: PERRL, EOMI. Sclera anicteric. Tacky mucous membranes.
--- NOTE | 2023-07-21 12:58 | WPDGICN ---
Assessment and Plan Assessment and plan (1) Change in bowel movement: Code(s): R19.8 - Other specified symptoms and signs involving the digestive system and abdomen Status: Acute Assessment and Plan: Patient with altered bowel movements. Fecal impaction for which she was hospitalized 3 weeks ago has now resolved. Now with complaints of diarrhea. Recommend stool softeners. Likely he would benefit with Metamucil or bulk agents to keep him regular. We have plans for an elective colonoscopy when patient is more stable. This will be deferred until his blood pressure problems are stabilized. He has no further bleeding undoubtedly aggravated by his recent constipation. Stool Hemoccult obtained this admission was normal. (2) Blood in stool: Code(s): K92.1 - Melena Status: Acute Assessment and Plan: No recent blood in stool this was noted at the time of cleansing from his fecal impaction. Stool Hemoccult this admission is negative. Elective colonoscopy remains on the schedule. It can be done earlier if necessary but needs to be deferred until he is stable. (3) COVID-19: Onset Date: 05/15/23 Code(s): U07.1 - COVID-19 Status: Acute Assessment and Plan: COVID-19 for which she was hospitalized several weeks ago has now resolved. Some of his ongoing symptoms may be residual from this recent infection. (4) Type 2 diabetes mellitus: Code(s): E11.9 - Type 2 diabetes mellitus without complications Status: Acute Assessment and Plan: Patient with underlying diabetes mellitus which likely contributes to his bowel irregularities. Diabetic gastroparesis cannot be excluded but given his constipation and other comorbid problems there are many different potential causes for his nausea. (5) Chronic kidney disease, stage 3: Code(s): N18.30 - Chronic kidney disease, stage 3 unspecified Status: Acute GI Consult Note Consult date/time: 07/21/23 12:58 Reason for consult: Anemia, altered bowel movements HPI: David Connelly is a 73 year old male I am asked to see at the request of the hospitalist service. Patient initially seen 3 weeks ago when hospitalized with COVID. Patient had a fecal impaction. A small amount of bright red blood per rectum was described. Arrangements were made for a elective outpatient colonoscopy which has not yet been accomplished. Patient subsequently at the half-way experienced a lightheaded episode. He was found to be hypotensive. In taken to the hospital. Patient now admitted for further evaluation and therapy. No recent bleeding has been described effect stool was Hemoccult negative. He now complains of diarrhea. He has a past medical history of congestive heart failure, diabetes, GE reflux, chronic anemia, chronic kidney disease. Because of recent complaints of nausea primary care service has considered diabetic gastroparesis and has placed him empirically on Reglan. Patient reports a relatively poor appetite but denies significant vomiting. Medications currently include Stool softeners. Review of Systems Review of Systems: Review of systems noncontributory. [facility] Past Medical History Medical History (Updated 07/21/23 @ 13:04 by Wilbert Grimes MD) Actinic keratosis of multiple sites of head and neck Acute kidney injury Normal renal ultrasound 04/25/2023. Anemia Arthritis Atherosclerotic heart disease of [place] coronary artery without angina pectoris (02/17/23) Lexiscan stress test on 02/17/2023 reveals small moderately severe fixed defect inferior lateral consistent with [place] with no reversible defects noted with ejection fraction greater than 70% on 02/17/2023. Echo on 02/21/2023 with ejection fraction 60-65% with moderate LVH and grade 1 diastolic dysfunction with trace mitral valve regurgitation. Basal cell carcinoma of scalp (11/2022) 1.8 cm raised, ulcerated lesion on the right anterio
[2023-07-21 13:18] LABS: Anion Gap 8 mmol/L (8-16); Blood Urea Nitrogen 24 mg/dL (9-20); Calcium 8.7 mg/dL (8.4-10.2); Carbon Dioxide 25 mmol/L (22-30); Chloride 104 mmol/L (98-107); Estimated CRCL calculation 53 ml/min; Estimated Glomerular Filt Rate > 60; Glucose 168 mg/dL (65-110); Potassium 3.9 mmol/L (3.4-5.0); Sodium 137 mmol/L (137-145)
[2023-07-21 17:07] LABS: Glucose Point of Care 96 mg/dl (65-105)
[2023-07-21] MEDS: ACETAMINOPHEN 325 MG TABLET 650 MG PO (21:11)
[2023-07-21 21:32] LABS: Glucose Point of Care 106 mg/dl (65-105)
[2023-07-22] VITALS (11 sets, daily range): BP systolic 116–151; BP diastolic 50–71; PULSE 58–70; RESP 18; TEMP 36–36.7; O2SAT 100
[2023-07-22] MEDS: METOCLOPRAMIDE HCL 5 MG TABLET PO ×4 (05:28→20:57)
--- NOTE | 2023-07-22 08:01 | WPDGIPROGNO ---
Progress Note: A&P Assessment and Plan (1) Nausea: Code(s): R11.0 - Nausea Status: Acute Assessment and Plan: Patient with nausea that appears to be improved. Likely this is multifactorial. There has been some discussion of polyp possible diabetic gastroparesis and patient has been placed empirically on Reglan. To further diagnose this perhaps a gastric emptying scan when not on promotility agents may be prudent. Hopefully Reglan can be discontinued after his blood pressure improves and his overall medical condition is stabilized. (2) Type 2 diabetes mellitus: Code(s): E11.9 - Type 2 diabetes mellitus without complications Status: Acute (3) Change in bowel movement: Code(s): R19.8 - Other specified symptoms and signs involving the digestive system and abdomen Status: Acute Assessment and Plan: Patient now with diarrhea. Several weeks ago admitted with fecal impaction. Recommend stool softener such as Metamucil or Colace on a regular basis. Colonoscopy anticipated as an outpatient will be attempted tomorrow after preparation today. (4) Blood in stool: Code(s): K92.1 - Melena Status: Acute Assessment and Plan: No further rectal bleeding. Patient had blood in stool at time of fecal impaction outpatient colonoscopy was arranged. We will attempt to perform this tomorrow prior to discharge. Subjective Date/time seen: 07/22/23 08:01 Interval history: Patient comfortable this morning. Tolerating diet. Much less nausea. Denies any blood in his stools. Anxious to proceed with GI testing prior to discharge. Review of Systems Review of Systems: Review of systems noncontributory. Exam Narrative: Physical exam reveals patient be alert. Vital signs stable. Blood pressure improved. HEENT exam reveals no icterus. Lungs are clear. Heart without murmur. Abdomen bowel sounds present soft nontender. Objective Data Vital Signs Vital Signs: Vital Signs - 24 hr 07/21/23 09:24 07/21/23 10:00 07/21/23 10:04 Temperature Pulse Rate 59 L 56 L 63 Respiratory Rate Blood Pressure 135/61 132/66 Pulse Oximetry Oxygen Delivery 07/21/23 10:08 07/21/23 09:24 07/21/23 14:00 Temperature 97.8 F Pulse Rate 80 60 Respiratory Rate 18 Blood Pressure 131/67 135/55 L Pulse Oximetry 98 100 Oxygen Delivery Room Air 07/21/23 21:06 07/21/23 22:00 07/21/23 20:00 Temperature 97.2 F L Pulse Rate 57 L 57 L Respiratory Rate 19 Blood Pressure 154/55 H 154/55 H Pulse Oximetry 99 Oxygen Delivery 07/21/23 20:05 07/21/23 20:10 07/21/23 20:52 Temperature Pulse Rate Respiratory Rate Blood Pressure 143/58 H 150/62 H Pulse Oximetry Oxygen Delivery Room Air 07/22/23 05:28 Temperature 96.8 F L Pulse Rate 58 L Respiratory Rate 18 Blood Pressure 132/57 L Pulse Oximetry 100 Oxygen Delivery Intake/Output Intake/Output: Intake & Output 07/19/23 07/20/23 07/21/23 07/22/23 23:59 23:59 23:59 23:59 Intake Total 2376 1070 1562 240 Output Total 1425 2000 300 250 Balance 954 -678 1262 -10 Meds/Results Medications: Active Medications Generic Name Dose Route Start Last Admin Trade Name Freq PRN Reason Stop Dose Admin Acetaminophen 650 mg 07/16/23 23:15 07/21/23 21:11 Acetaminophen 325 Mg Tablet PO 650 mg Q6H PRN Administration Mild Pain (1-3) or Fever Carvedilol 12.5 mg 07/16/23 09:00 07/21/23 21:06 Carvedilol 12.5 Mg Tablet BY MOUTH 12.5 mg Q12HR ROBERTO CARLOS Administration Cyanocobalamin 1,000 mcg 07/17/23 09:00 07/21/23 09:29 Cyanocobalamin 1,000 Mcg Tablet PO 1,000 mcg DAILY ROBERTO CARLOS Administration Dextrose 12.5 gm 07/16/23 23:15 Dextrose 50% 25 Gm/50 Ml Syringe IV PUSH PRN PRN Hypoglycemia Protocol Dutasteride 0.5 mg 07/17/23 09:00 07/21/23 09:29 Dutasteride 0.5 Mg Capsule PO 08/16/23 08:59 0.5 mg DAILY ROBERTO CARLOS Administrat
[2023-07-22 08:09] LABS: Glucose Point of Care 117 mg/dl (65-105)
[2023-07-22] MEDS: PSYLLIUM SUGAR FREE POWDER PACKET 1 PACKET PO (08:53)
[2023-07-22] MEDS: TAMSULOSIN HCL 0.4 MG CAPSULE PO (08:54)
[2023-07-22] MEDS: carvediloL 12.5 MG TABLET BY MOUTH ×2 (08:54→20:57)
[2023-07-22] MEDS: CHOLECALCIFEROL 1,000 UNITS TABLET 2000 UNITS PO (08:54)
[2023-07-22] MEDS: MIDODRINE HCL 10 MG TABLET PO ×3 (08:54→17:47)
[2023-07-22] MEDS: FERROUS SULFATE 325 MG TABLET DR PO (08:54)
[2023-07-22] MEDS: CYANOCOBALAMIN 1,000 MCG TABLET 1000 MCG PO (08:54)
[2023-07-22] MEDS: FENOFIBRATE 160 MG TABLET PO (08:55)
[2023-07-22] MEDS: HEPARIN SODIUM 5,000 UNITS/ML VIAL 5000 UNITS SUB-Q (08:55)
[2023-07-22] MEDS: DUTASTERIDE 0.5 MG CAPSULE PO (08:55)
[2023-07-22 12:04] LABS: Glucose Point of Care 137 mg/dl (65-105)
[2023-07-22] MEDS: PEG (High)/E-LYTE SOLN 4,000 ML BTL 4000 ML PO (12:22)
--- NOTE | 2023-07-22 12:34 | PM.IMPN ---
Progress Note: A&P Assessment and Plan (1) Type 2 diabetes mellitus: Code(s): E11.9 - Type 2 diabetes mellitus without complications Status: Acute (2) Weight loss: Code(s): R63.4 - Abnormal weight loss Status: Acute (3) Near syncope: Code(s): R55 - Syncope and collapse Status: Acute (4) Acute kidney injury: Code(s): N17.9 - Acute kidney failure, unspecified Status: Acute (5) Diarrhea: Code(s): R19.7 - Diarrhea, unspecified Status: Acute (6) Fecal impaction: Code(s): K56.41 - Fecal impaction Status: Acute (7) Gastroenteritis: Code(s): K52.9 - Noninfective gastroenteritis and colitis, unspecified Status: Acute Plan Assessment and Plan (1) Acute on chronic renal failure: ?Qualifiers: ?Acute renal failure type:?unspecified??Chronic kidney disease stage:?stage 3 (moderate)??Chronic kidney disease stage 3 subtype:?stage 3a (GFR 45-59)? Qualified Code(s):?N17.9 - Acute kidney failure, unspecified; N18.31 - Chronic kidney disease, stage 3a ?Code(s): N17.9 - Acute kidney failure, unspecified; N18.9 - Chronic kidney disease, unspecified ?Status:?Acute ?Assessment and Plan: The patient has acute on chronic kidney injury. Likely due to a combination of hypoperfusion from hypotension and hypovolemia from dehydration in addition to ongoing diuretic and RADHA-inhibitor use. He is not retaining urine. Creatinine is trending down, on gentle IV fluid creat is better at 1.1 resolved with fluids (2) Near syncope: ?Code(s): R55 - Syncope and collapse ?Status:?Acute ?Assessment and Plan: Patient had syncope versus near-syncope as detailed above, most likely due to hypotension. Patient has no focal weakness, Possible due to hypotension, echocardiogram shows normal EF, no significant valvular disease Hold antihypertensives and diuretics. Blood pressure lower side add midodrine p.o. Likely secondary to poor oral intake pt having bout of diarrhea today pt had stool cultures sent pt to have colonoscopy carlene (3) Hypotension: ?Code(s): I95.9 - Hypotension, unspecified ?Status:?Acute ?Assessment and Plan: Patient has lost 70 to 80 lb since September and may very well be able to come off of his antihypertensives at this point. He is also bit dry. Blood pressure stable now (4) Weight loss: ?Code(s): R63.4 - Abnormal weight loss ?Status:?Acute ?Assessment and Plan: Unintentional 70 to 80 lb weight loss since September, scheduled for endoscopy per Dr. Grimes at the beginning of July. Patient has no appetite, nausea intermittently after taking meals. denies vomiting Suspecting gastroparesis due to diabetes Start Reglan 5 mg a.c. Consult GI for evaluation (5) Chronic anemia: ?Code(s): D64.9 - Anemia, unspecified ?Status:?Acute ?Assessment and Plan: hb 10.5, iron panel ordered iron replacement per iron panel results (6) Type 2 diabetes mellitus: ?Code(s): E11.9 - Type 2 diabetes mellitus without complications ?Status:?Acute ?Assessment and Plan: Hold Jardiance and detemir for now given poor intake. Initiate sliding scale insulin, Accu-Cheks, and hypoglycemic protocol. Suspecting gastroparesis due to diabetes Subjective Date/time seen: 07/22/23 12:34 Interval history: This is a pleasant 73-year-old male with hypertension, heart failure with preserved ejection fraction, dyslipidemia, chronic kidney disease, type 2 diabetes mellitus, prostate cancer, chronic anemia, obstructive sleep apnea, and GERD who presented to the emergency department for evaluation of weakness. Pt has ongoing diarrhea concerned about weight loss awaiting to see GI MD pt to have colonoscopy tomorrow Review of Systems Review of Systems: Concerns about weight loss and diarrhea Exam Narrative: General: Chronically ill Neck: Supple. Respirator
--- NOTE | 2023-07-22 14:04 | PCNFU ---
Nutrition Follow-Up Complete: Severe protein calorie malnutrition related to chronic disease as evidenced by 25% weight loss/ 10 months; inakes <75% meals <>1 month; moderate muscle wasting and fat loss Inakes at least 50% meals and supplements Maintain weight Goal: Pt current nutrition is diabetic consistent carb diet. Glucerna TID for additional 220 kcal and 10 g protein each. Magic cup nutritional ice cream BID for additional 290 kcal and 9 g protein each. Nutrition recommendation: Continue with current nutrition care plan. Agree with orders Last recorded weight is 86.1 kg. Bowel Motility: +1 BM 07/22/23 Labs Reviewed: BUN 25, Glu 117 Meds Noted: Reglan, Zofran, metamucil, senna Skin: WNL Additional Notes: Pt NPO for having colonoscopy tomorrow. Monitoring intakes, weights, labs, plan of care, supplement tolerance Follow up in 5 days
[2023-07-22 17:09] LABS: Glucose Point of Care 116 mg/dl (65-105)
[2023-07-22 20:44] LABS: Glucose Point of Care 115 mg/dl (65-105)
[2023-07-22] MEDS: ONDANSETRON HCL ODT 4 MG TABLET PO (21:03)
[2023-07-23] VITALS (13 sets, daily range): BP systolic 80–149; BP diastolic 37–65; PULSE 50–68; RESP 17–21; TEMP 36–37; O2SAT 98–100
[2023-07-23 08:14] LABS: Glucose Point of Care 94 mg/dl (65-105)
[2023-07-23] MEDS: carvediloL 12.5 MG TABLET BY MOUTH ×2 (08:30→20:31)
[2023-07-23] MEDS: FENOFIBRATE 160 MG TABLET PO (08:31)
[2023-07-23] MEDS: DUTASTERIDE 0.5 MG CAPSULE PO (08:31)
[2023-07-23] MEDS: TAMSULOSIN HCL 0.4 MG CAPSULE PO (08:31)
[2023-07-23] MEDS: MIDODRINE HCL 10 MG TABLET PO ×3 (08:31→17:04)
--- NOTE | 2023-07-23 11:03 | PC.NURSE ---
On 07/23/23, the student, [Homer Fajardo], provided care and completed [facility] documentation on this patient. I have reviewed the student's documentation and agree with the findings.
[2023-07-23 12:28] LABS: Glucose Point of Care 102 mg/dl (65-105)
[2023-07-23 13:30] LABS: Glucose Point of Care 96 mg/dl (65-105)
[2023-07-23] MEDS: LACTATED RINGERS 1,000 ML 150 ML IV CONT (13:40)
--- NOTE | 2023-07-23 14:00 | WPDANESEPPF ---
Anes - Initial Pre Proc Eval Procedure: Operation Date: 07/23/23 14:00 Proposed Procedures p Colonoscopy - Wilbert Grimes MD Date/Time: 07/23/23 14:00 Surgeon: Jg Thornton MD Pre Op Diagnosis: DEEJAY Patient Data Age: 73 Gender: M Height: 1.78 m Weight: 86.1 kg Last Vital Signs Temp 97.6 F 07/23/23 13:42 Pulse 56 L 07/23/23 13:42 Resp 18 07/23/23 13:42 BP 146/65 H 07/23/23 13:42 Pulse Ox 100 07/23/23 13:42 O2 Del Method Room Air 07/23/23 13:42 Allergies Allergy/AdvReac Type Severity Reaction Status Date / Time hydrocodone Allergy Mild UN KNOWN Verified 04/29/23 14:26 tramadol Allergy Other Verified 04/29/23 14:26 Home Medications Medication Instructions Recorded Confirmed Type enzalutamide 40 mg capsule (Xtandi) 160 mg PO DAILY 12/14/19 07/16/23 History leuprolide acetate (6 month) 45 mg 45 mg IM [id number] 12/14/19 07/16/23 History intramuscular syringe kit (Lupron Depot) cyanocobalamin (vitamin B-12) 1,000 mcg PO DAILY 05/07/21 07/16/23 History 1,000 mcg tablet ferrous sulfate 325 mg (65 mg 325 mg PO . every other day 10/05/22 07/16/23 History iron) tablet,delayed release dutasteride 0.5 mg-tamsulosin ER 1 cap PO DAILY #90 caps 10/13/22 07/16/23 Rx 0.4 mg capsule ext.release 24hr mphas (Rissa) fenofibrate 160 mg tablet 160 mg PO DAILY #90 tabs 10/13/22 07/16/23 Rx telmisartan 80 mg tablet 80 mg PO DAILY #90 tabs 10/13/22 07/16/23 Rx cholecalciferol (vitamin D3) 50 50 mcg PO DAILY #90 caps 11/06/22 07/16/23 Rx mcg (2,000 unit) capsule calcium carbonate 500 mg calcium 500 mg PO DAILY 12/31/22 07/16/23 History (1,250 mg) tablet (Oyster Shell Calcium) cbd topical 1 gel topical DAILY PRN Pain 12/31/22 07/16/23 History acetaminophen 325 mg tablet 500 mg PO Q6H PRN Pain 04/07/23 07/16/23 History (Tylenol) atorvastatin 20 mg tablet 20 mg PO DAILY #90 tabs 04/24/23 07/16/23 Rx fexofenadine 180 mg tablet 180 mg PO DAILY PRN Allergy 04/25/23 07/16/23 History (Sandy Allergy) Symptoms amitriptyline 10 mg tablet 10 mg PO HS 06/25/23 07/16/23 History empagliflozin 25 mg tablet 25 mg PO DAILY 06/25/23 07/16/23 History (Jardiance) sennosides 8.6 mg-docusate sodium 1 tab-cap PO BID PRN constipation 06/28/23 07/16/23 Rx 50 mg tablet (Senokot-S) #60 tabs ondansetron 4 mg disintegrating 4 mg PO TID PRN nausea and 07/14/23 07/16/23 Rx tablet vomiting #60 tabs carvedilol 12.5 mg tablet See Rx Instructions .Route 07/15/23 07/16/23 Rx .COMPLEX #180 tabs insulin detemir U-100 100 unit/mL 4 unit subcut BID 07/16/23 07/16/23 History (3 mL) subcutaneous pen (Levemir FlexPen) Laboratory Tests 07/22/23 07/22/23 07/23/23 17:07 19:57 07:58 POC Capillary Glucose 116 H mg/dl 115 H mg/dl 94 mg/dl (65-105) (65-105) (65-105) 07/23/23 07/23/23 12:18 13:28 POC Capillary Glucose 102 mg/dl 96 mg/dl (65-105) (65-105) Patient hx anesthesia problems: none Family hx anesthesia problems: none Results Review: All pre-operative results and documents have been reviewed as part of the pre-operative evaluation. [facility] Past Medical History Medical History (Updated 07/22/23 @ 08:02 by Wilbert Grimes MD) Actinic keratosis of multiple sites of head and neck Acute kidney injury Normal renal ultrasound 04/25/2023. Anemia Arthritis Atherosclerotic heart disease of [place] coronary artery without angina pectoris (02/17/23) Lexiscan stress test on 02/17/2023 reveals small moderately severe fixed defect inferior lateral consistent with [place] with no reversible defects noted with ejection fraction greater than 70% on 02/17/2023. Echo on 02/21/2023 with ejection fraction 60-65% with moderate LVH and grade 1 diastolic dysfunction with trace mitral valve regurgitation. Basal cell carcinoma of scalp (11/2022) 1.8 cm raised, ulcerated lesion on the right anterior scalp Chronic bilateral low back pain with right-sided sciatica Chronic kidn
--- NOTE | 2023-07-23 16:33 | PM.DS ---
DS: Admitting Diagnosis Discharge Date 07/24/2023 Admitting Diagnosis Weakness. DS: Discharge Diagnosis Discharge Diagnosis (1) Type 2 diabetes mellitus: Code(s): E11.9 - Type 2 diabetes mellitus without complications Status: Acute (2) Weight loss: Code(s): R63.4 - Abnormal weight loss Status: Acute (3) Near syncope: Code(s): R55 - Syncope and collapse Status: Acute (4) Acute kidney injury: Code(s): N17.9 - Acute kidney failure, unspecified Status: Acute (5) Diarrhea: Code(s): R19.7 - Diarrhea, unspecified Status: Acute (6) Fecal impaction: Code(s): K56.41 - Fecal impaction Status: Acute (7) Gastroenteritis: Code(s): K52.9 - Noninfective gastroenteritis and colitis, unspecified Status: Acute Plan Assessment and Plan (1) Acute on chronic renal failure: ?Qualifiers: ?Acute renal failure type:?unspecified??Chronic kidney disease stage:?stage 3 (moderate)??Chronic kidney disease stage 3 subtype:?stage 3a (GFR 45-59)? Qualified Code(s):?N17.9 - Acute kidney failure, unspecified; N18.31 - Chronic kidney disease, stage 3a ?Code(s): N17.9 - Acute kidney failure, unspecified; N18.9 - Chronic kidney disease, unspecified ?Status:?Acute ?Assessment and Plan: The patient has acute on chronic kidney injury. Likely due to a combination of hypoperfusion from hypotension and hypovolemia from dehydration in addition to ongoing diuretic and RADHA-inhibitor use. Creatinine is trending down, on gentle IV fluid creat is better at 1.1 resolved with fluids (2) Near syncope: ?Code(s): R55 - Syncope and collapse ?Status:?Acute ?Assessment and Plan: Patient had syncope versus near-syncope as detailed above, most likely due to hypotension. Patient has no focal weakness, Possible due to hypotension, echocardiogram shows normal EF, no significant valvular disease Hold antihypertensives and diuretics. Blood pressure lower side add midodrine p.o. Likely secondary to poor oral intake pt having bout of diarrhea today pt had stool cultures sent which were negative, pt had colonoscopy showing hemorrhoids and rectal ulcer (3) Hypotension: ?Code(s): I95.9 - Hypotension, unspecified ?Status:?Acute ?Assessment and Plan: Patient has lost 70 to 80 lb since September and may very well be able to come off of his antihypertensives at this point. He is also bit dry. Blood pressure stable now (4) Weight loss: ?Code(s): R63.4 - Abnormal weight loss ?Status:?Acute ?Assessment and Plan: Unintentional 70 to 80 lb weight loss since September, scheduled for endoscopy per Dr. Grimes at the beginning of July. Patient has no appetite, nausea intermittently after taking meals. denies vomiting Suspecting gastroparesis due to diabetes Start Reglan 5 mg a.c. Consult GI for evaluation (5) Chronic anemia: ?Code(s): D64.9 - Anemia, unspecified ?Status:?Acute ?Assessment and Plan: hb 10.5, iron panel ordered iron replacement per iron panel results (6) Type 2 diabetes mellitus: ?Code(s): E11.9 - Type 2 diabetes mellitus without complications ?Status:?Acute ?Assessment and Plan: Hold Jardiance and detemir for now given poor intake. Initiate sliding scale insulin, Accu-Cheks, and hypoglycemic protocol. Suspecting gastroparesis due to diabetes DS: Summary Hospital Course Hospital Course: This is a pleasant 73-year-old male with hypertension, heart failure with preserved ejection fraction, dyslipidemia, chronic kidney disease, type 2 diabetes mellitus, prostate cancer, chronic anemia, obstructive sleep apnea, and GERD who presented to the emergency department for evaluation of weakness. Pt has ongoing diarrhea concerned about weight loss awaiting to see GI MD pt has colonoscopy in hospital pt will follow go or results of rectal biospy. pt to continue on reglan for s
[2023-07-23] MEDS: METOCLOPRAMIDE HCL 5 MG TABLET PO ×2 (17:04→20:31)
[2023-07-23 17:29] LABS: Glucose Point of Care 131 mg/dl (65-105)
[2023-07-23 20:24] LABS: Glucose Point of Care 149 mg/dl (65-105)
[2023-07-24 05:05] VITALS: BP 136/52; PULSE 50; RESP 18; TEMP 36.7; O2SAT 99
[2023-07-24] MEDS: METOCLOPRAMIDE HCL 5 MG TABLET PO ×2 (05:46→12:23)
--- NOTE | 2023-07-24 07:06 | WPDGIPROGNO ---
Progress Note: A&P Assessment and Plan (1) Change in bowel movement: Code(s): R19.8 - Other specified symptoms and signs involving the digestive system and abdomen Status: Acute Assessment and Plan: Bowel habits have normalized. His fecal impaction 1 month ago. Recent diarrhea all improving. Likely related to diabetes. Colonoscopy yesterday revealed a small rectal ulcer consistent with his recent impaction. Plan to continue stool softener such as Metamucil after discharge he may benefit from MiraLax on a scheduled basis twice a week. Okay for discharge from GI perspective. (2) Nausea: Code(s): R11.0 - Nausea Status: Acute Assessment and Plan: Nausea it noted at admission is likely multifactorial. Diabetic gastroparesis cannot be excluded. Recommend weaning off of Reglan. If he continues to require this been outpatient gastric emptying scan can be obtained. strict control of glucose is encouraged. Follow-up with primary care service at this stage. (3) Type 2 diabetes mellitus: Code(s): E11.9 - Type 2 diabetes mellitus without complications Status: Acute Subjective Date/time seen: 07/24/23 07:06 Interval history: Patient alert comfortable this morning. Tolerating diet without difficulty. Denies any pain abdominal pain. No blood in stools. Anxious to go home. Review of Systems Review of Systems: Review of systems noncontributory. Exam Narrative: Physical exam reveals patient to be alert. Vital signs stable. HEENT exam reveals no icterus. Lungs are clear. Heart without murmur. Abdomen bowel sounds present soft nontender. Objective Data Vital Signs Vital Signs: Vital Signs - 24 hr 07/23/23 08:30 07/23/23 08:00 07/23/23 09:57 Temperature Pulse Rate 52 L 52 L Respiratory Rate 18 Blood Pressure Pulse Oximetry 99 Oxygen Delivery Room Air Room Air 07/23/23 13:42 07/23/23 14:53 07/23/23 15:03 Temperature 97.6 F Pulse Rate 56 L 56 L 59 L Respiratory Rate 18 20 21 H Blood Pressure 146/65 H 80/37 L 95/50 L Pulse Oximetry 100 100 100 Oxygen Delivery Room Air Room Air Room Air 07/23/23 15:13 07/23/23 15:35 07/23/23 16:55 Temperature 96.8 F L Pulse Rate 59 L 58 L 55 L Respiratory Rate 19 17 Blood Pressure 149/64 H 140/52 L 140/53 L Pulse Oximetry 100 100 100 Oxygen Delivery Room Air 07/23/23 16:59 07/23/23 16:30 07/23/23 20:19 Temperature 97.8 F Pulse Rate 60 68 56 L Respiratory Rate 18 Blood Pressure 144/58 H 133/60 130/63 Pulse Oximetry 100 100 98 Oxygen Delivery 07/23/23 20:31 07/23/23 20:00 07/24/23 05:05 Temperature 98.0 F Pulse Rate 56 L 50 L Respiratory Rate 18 Blood Pressure 136/52 L Pulse Oximetry 99 Oxygen Delivery Room Air Intake/Output Intake/Output: Intake & Output 07/21/23 07/22/23 07/23/23 07/24/23 23:59 23:59 23:59 23:59 Intake Total 1562 1070 440 0 Output Total 942 971 3148 400 Balance 1264 358 -535 -602 Meds/Results Medications: Active Medications Generic Name Dose Route Start Last Admin Trade Name Freq PRN Reason Stop Dose Admin Acetaminophen 650 mg 07/16/23 23:15 07/21/23 21:11 Acetaminophen 325 Mg Tablet PO 650 mg Q6H PRN Administration Mild Pain (1-3) or Fever Carvedilol 12.5 mg 07/16/23 09:00 07/23/23 20:31 Carvedilol 12.5 Mg Tablet BY MOUTH 12.5 mg Q12HR ROBERTO CARLOS Administration Cyanocobalamin 1,000 mcg 07/17/23 09:00 07/23/23 07:58 Cyanocobalamin 1,000 Mcg Tablet PO Not Given DAILY ROBERTO CARLOS Dextrose 12.5 gm 07/16/23 23:15 Dextrose 50% 25 Gm/50 Ml Syringe IV PUSH PRN PRN Hypoglycemia Protocol Dutasteride 0.5 mg 07/17/23 09:00 07/23/23 08:31 Dutasteride 0.5 Mg Capsule PO 08/16/23 08:59 0.5 mg DAILY ROBERTO CARLOS Administration Fenofibrate 160 mg 07/17/23 09:00 07/23/23 08:31 Fenofibrate 160 Mg Tablet PO 160 mg DAILY ROBERTO CARLOS Administration Ferrous Sulfate 325 mg
[2023-07-24 08:05] LABS: Glucose Point of Care 92 mg/dl (65-105)
[2023-07-24 09:21] VITALS: BP 137/91; PULSE 62
[2023-07-24 09:26] VITALS: PULSE 62
[2023-07-24] MEDS: carvediloL 12.5 MG TABLET BY MOUTH (09:26)
[2023-07-24] MEDS: CHOLECALCIFEROL 1,000 UNITS TABLET 2000 UNITS PO (09:27)
[2023-07-24] MEDS: CYANOCOBALAMIN 1,000 MCG TABLET 1000 MCG PO (09:27)
[2023-07-24] MEDS: TAMSULOSIN HCL 0.4 MG CAPSULE PO (09:27)
[2023-07-24] MEDS: DUTASTERIDE 0.5 MG CAPSULE PO (09:27)
[2023-07-24] MEDS: FERROUS SULFATE 325 MG TABLET DR PO (09:27)
[2023-07-24] MEDS: FENOFIBRATE 160 MG TABLET PO (09:28)
[2023-07-24] MEDS: MIDODRINE HCL 10 MG TABLET PO ×2 (09:28→12:23)
[2023-07-24] MEDS: PSYLLIUM SUGAR FREE POWDER PACKET 1 PACKET PO (09:28)
[2023-07-24 09:43] LABS: Hematocrit 30.7 % (42.0-52.0); Hemoglobin 10.2 g/dL (14.0-18.0); Mean Corpuscular HGB Conc 33.2 g/dl (32-36); Mean Corpuscular Hemoglobin 31.5 pg (26-34); Mean Corpuscular Volume 94.8 fl (80-100); Platelet Count Result 140 k/mm3 (150-375); Red Blood Count 3.24 M/mm3 (4.6-6.20); Red Cell Distribution Width 14.9 % (11.5-14.5); White Blood Count 4.1 K/mm3 (4.5-10.0)
[2023-07-24 09:52] LABS: Anion Gap 8 mmol/L (8-16); Blood Urea Nitrogen 17 mg/dL (9-20); Calcium 8.5 mg/dL (8.4-10.2); Carbon Dioxide 25 mmol/L (22-30); Chloride 103 mmol/L (98-107); Estimated CRCL calculation 58 ml/min; Estimated Glomerular Filt Rate > 60; Glucose 143 mg/dL (65-110); Potassium 3.7 mmol/L (3.4-5.0); Sodium 136 mmol/L (137-145)
--- NOTE | 2023-07-24 10:41 | PM.IMPN ---
Progress Note: A&P Assessment and Plan (1) Type 2 diabetes mellitus: Code(s): E11.9 - Type 2 diabetes mellitus without complications Status: Acute (2) Weight loss: Code(s): R63.4 - Abnormal weight loss Status: Acute (3) Near syncope: Code(s): R55 - Syncope and collapse Status: Acute (4) Acute kidney injury: Code(s): N17.9 - Acute kidney failure, unspecified Status: Acute (5) Diarrhea: Code(s): R19.7 - Diarrhea, unspecified Status: Acute (6) Fecal impaction: Code(s): K56.41 - Fecal impaction Status: Acute (7) Gastroenteritis: Code(s): K52.9 - Noninfective gastroenteritis and colitis, unspecified Status: Acute Plan Assessment and Plan (1) Acute on chronic renal failure: ?Qualifiers: ?Acute renal failure type:?unspecified??Chronic kidney disease stage:?stage 3 (moderate)??Chronic kidney disease stage 3 subtype:?stage 3a (GFR 45-59)? Qualified Code(s):?N17.9 - Acute kidney failure, unspecified; N18.31 - Chronic kidney disease, stage 3a ?Code(s): N17.9 - Acute kidney failure, unspecified; N18.9 - Chronic kidney disease, unspecified ?Status:?Acute ?Assessment and Plan: The patient has acute on chronic kidney injury. Likely due to a combination of hypoperfusion from hypotension and hypovolemia from dehydration in addition to ongoing diuretic and RADHA-inhibitor use. He is not retaining urine. creat is better at 1.1 resolved with fluids (2) Near syncope: ?Code(s): R55 - Syncope and collapse ?Status:?Acute ?Assessment and Plan: Patient had syncope versus near-syncope as detailed above, most likely due to hypotension. Patient has no focal weakness, Possible due to hypotension, echocardiogram shows normal EF, no significant valvular disease Hold antihypertensives and diuretics. Blood pressure lower side add midodrine p.o. Likely secondary to poor oral intake pt having bout of diarrhea today pt had stool cultures are negative pt to have colonoscopy today showing hemorrhoids andrectal ulcer (3) Hypotension: ?Code(s): I95.9 - Hypotension, unspecified ?Status:?Acute ?Assessment and Plan: Patient has lost 70 to 80 lb since September and may very well be able to come off of his antihypertensives at this point. He is also bit dry. Blood pressure stable now (4) Weight loss: ?Code(s): R63.4 - Abnormal weight loss ?Status:?Acute ?Assessment and Plan: Unintentional 70 to 80 lb weight loss since September, scheduled for endoscopy per Dr. Grimes at the beginning of July. Patient has no appetite, nausea intermittently after taking meals. denies vomiting Suspecting gastroparesis due to diabetes Start Reglan 5 mg a.c. Consult GI for evaluation (5) Chronic anemia: ?Code(s): D64.9 - Anemia, unspecified ?Status:?Acute ?Assessment and Plan: hb 10.5, iron panel ordered iron replacement per iron panel results (6) Type 2 diabetes mellitus: ?Code(s): E11.9 - Type 2 diabetes mellitus without complications ?Status:?Acute ?Assessment and Plan: Hold Jardiance and detemir for now given poor intake. Initiate sliding scale insulin, Accu-Cheks, and hypoglycemic protocol. Suspecting gastroparesis due to diabetes Subjective Date/time seen: 07/23/2023 Interval history: This is a pleasant 73-year-old male with hypertension, heart failure with preserved ejection fraction, dyslipidemia, chronic kidney disease, type 2 diabetes mellitus, prostate cancer, chronic anemia, obstructive sleep apnea, and GERD who presented to the emergency department for evaluation of weakness. Pt has ongoing diarrhea concerned about weight loss awaiting to see GI MD pt has colonscopy today feels too ill to go home watch dali concepcion am Review of Systems Review of Systems: weak and tired Exam Narrative: General: Chronically ill Neck: Suppl
--- NOTE | 2023-07-24 10:59 | WPDANESPN ---
Anes - Prog Note Post-Op Date/Time: 07/24/23 10:59 Cardiovascular status: normal Respiratory status: normal Airway patency: baseline Mental status: baseline Post-Op hydration status: normal Vital Signs: Last Vital Signs Temp 98.0 F 07/24/23 05:05 Pulse 62 07/24/23 09:26 Resp 18 07/24/23 05:05 BP 137/91 H 07/24/23 09:21 Pulse Ox 99 07/24/23 05:05 O2 Del Method Room Air 07/23/23 20:00 Pain Score (VAS): 0 I/O: Intake & Output 07/23/23 07/24/23 07/24/23 23:59 07:59 15:59 Intake Total 240 0 240 Output Total 350 400 Balance -110 -400 240 Laboratory Tests 07/24/23 09:35 07/24/23 09:35 07/23/23 07/23/23 07/23/23 12:18 13:28 16:52 WBC RBC Hgb Hct MCV MCH MCHC RDW Plt Count MPV Sodium Potassium Chloride Carbon Dioxide Anion Gap BUN Creatinine Estim Creat Clear Calc Estimated GFR Glucose POC Capillary Glucose 102 96 131 H Calcium 07/23/23 07/24/23 07/24/23 20:16 08:02 09:35 WBC 4.1 L RBC 3.24 L Hgb 10.2 L Hct 30.7 L MCV 94.8 MCH 31.5 MCHC 33.2 RDW 14.9 H Plt Count 140 L MPV 10.0 Sodium 136 L Potassium 3.7 Chloride 103 Carbon Dioxide 25 Anion Gap 8 BUN 17 Creatinine 1.00 Estim Creat Clear Calc 58 Estimated GFR > 60 Glucose 143 H POC Capillary Glucose 149 H 92 Calcium 8.5 Post-procedural complaints: none Patient Feedback: Patient satisfied with anesthetic care.
[2023-07-24 12:19] LABS: Glucose Point of Care 118 mg/dl (65-105)
--- NOTE | 2023-07-24 13:06 | PC.NURSE ---
On 07/24/23, the student, [Rita Black], provided care and completed [facility] documentation on this patient. I have reviewed the student's documentation and agree with the findings.
== END 2023-07-24 13:11 | disposition home or self-care (01) | DRG 683 ==
LOC: ANHED 20:54 → ANH2MED 21:25
PROVIDERS: Emergency Medicine; Hospitalist; Internal Medicine; Internal Medicine Gastroenterology; Physician Assistant; Admitting Provider Family Medicine; Emergency Provider Physician Assistant; PCP Family Medicine; Visit Provider Family Medicine
PROC: 0DJD8ZZ Inspection of Lower Intestinal Tract, Via Natural or Artificial Opening Endoscopic (ICD-10-PCS; CPT 45378; principal; 2023-07-23 14:00)
DX: N17.9 Acute kidney failure, unspecified (principal); E44.0 Moderate protein-calorie malnutrition; K62.6 Ulcer of anus and rectum; E11.43 Type 2 diabetes mellitus with diabetic autonomic (poly)neuropathy; K31.84 Gastroparesis; I95.9 Hypotension, unspecified; K64.8 Other hemorrhoids; K52.9 Noninfective gastroenteritis and colitis, unspecified; K59.00 Constipation, unspecified; R55 Syncope and collapse; R63.4 Abnormal weight loss; E11.22 Type 2 diabetes mellitus with diabetic chronic kidney disease; N18.31 Chronic kidney disease, stage 3a; I12.9 Hypertensive chronic kidney disease with stage 1 through stage 4 chronic kidney disease, or unspecified chronic kidney disease; E86.0 Dehydration; E78.5 Hyperlipidemia, unspecified; G47.33 Obstructive sleep apnea (adult) (pediatric); K21.9 Gastro-esophageal reflux disease without esophagitis; I25.10 Atherosclerotic heart disease of native coronary artery without angina pectoris; M15.9 Polyosteoarthritis, unspecified; D50.9 Iron deficiency anemia, unspecified; L40.9 Psoriasis, unspecified; Z96.651 Presence of right artificial knee joint; Z96.611 Presence of right artificial shoulder joint; Z85.46 Personal history of malignant neoplasm of prostate; Z85.828 Personal history of other malignant neoplasm of skin; Z86.16 Personal history of COVID-19; Z79.4 Long term (current) use of insulin; Z68.27 Body mass index [BMI] 27.0-27.9, adult
CPT/HCPCS: 36415; 70450; 71046; 80048; 80053; 81003; 82274; 82728; 82948; 83540; 83550; 83605; 83735; 84484; 85025; 85027; 88305; 93005; 93306; 96361; 96374; 97110; 97161; 97165; 97530; 99285; A9270; G0378; J1644; J2405; J2704; J7030; J7040; J7120

== ENCOUNTER 2023-08-03 13:31 | Emergency (ER) | payer MEDICARE, SELFPAY ==
--- NOTE | ~2023-08-03 | CT_ITS ---
EXAMINATION: CT abdomen pelvis w con DATE: 08/03/2023 16:16 INDICATION: Abdominal pain. Constipation. TECHNIQUE: Computed tomography (CT) of the abdomen and pelvis was performed with 100 mL Omnipaque 350 intravenous contrast. Automated exposure control and iterative reconstruction technique were employe d. The dose-length product was 495.16 mGy-cm. COMPARISON: CT abdomen and pelvis 06/25/2023 FINDINGS: The visualized portions of the lung bases demonstrate mild elevation of right diaphragm. Th ere is mild atelectasis bilaterally. No pleural effusion. The heart size is normal. No pericardial ef fusion. The liver, gallbladder, spleen, pancreas, and adrenal glands are normal. There is cortical th inning of the kidneys. There is a 4.0 cm cyst in left kidney. Stool distends the rectum. The appendix is normal. Aortic atherosclerosis is noted. There are no pathologically enlarged lymph nodes. There is no free intraperitoneal fluid. There is a right inguinal hernia containing fat. There are brachyth erapy seeds in the prostate. There is severe lumbar spondylosis. There are changes of posterior fusio n procedure from L3 to L5. There are old insufficiency fractures of the sacrum and iliac bones. Ostei tis pubis is noted. IMPRESSION: 1. Stool distends the rectum. 2. Right inguinal hernia containing fat. Reviewed, dictated and finalized at location A. R [facility]
[2023-08-03 13:46] VITALS: BP 140/70; PULSE 77; RESP 19; TEMP 36.4; O2SAT 96
--- NOTE | 2023-08-03 14:49 | ED.ABDPAIN ---
HPI - Abdominal Pain General Chief Complaint: Abdominal Pain <Pam Caruso PA-C - Last Filed: 08/03/23 18:28> Stated Complaint: constipation <RELL Mckeon Last Filed: 08/03/23 18:28> Time Seen by Provider: 08/03/23 16:22 <Pam Caruso PA-C - Last Filed: 08/03/23 18:28> Source: patient <RELL Mckeon Last Filed: 08/03/23 18:28> Mode of arrival: ambulatory <RELL Mckeon Last Filed: 08/03/23 18:28> Limitations: no limitations <RELL Mckeon Last Filed: 08/03/23 18:28> History of Present Illness HPI narrative: This is a 73 year old male that presents to the ER for abdominal pain and constipation ongoing over the last 2 days. Reports he has been taking Senna with little relief. Denies fevers or vomiting. <RELL Mckeon Last Filed: 08/03/23 18:28> Related Data Home Medications: Home Medications Medication Instructions Recorded Confirmed enzalutamide 40 mg capsule (Xtandi) 160 mg PO DAILY 12/14/19 07/28/23 leuprolide acetate (6 month) 45 mg 45 mg IM [id number] 12/14/19 07/28/23 intramuscular syringe kit (Lupron Depot) cyanocobalamin (vitamin B-12) 1,000 mcg PO DAILY 05/07/21 07/28/23 1,000 mcg tablet ferrous sulfate 325 mg (65 mg 325 mg PO . every other day 10/05/22 07/28/23 iron) tablet,delayed release calcium carbonate 500 mg calcium 500 mg PO DAILY 12/31/22 07/28/23 (1,250 mg) tablet (Oyster Shell Calcium) cbd topical 1 gel topical DAILY PRN Pain 12/31/22 07/28/23 acetaminophen 325 mg tablet 500 mg PO Q6H PRN Pain 04/07/23 07/28/23 (Tylenol) fexofenadine 180 mg tablet 180 mg PO DAILY PRN Allergy 04/25/23 07/28/23 (Sandy Allergy) Symptoms amitriptyline 10 mg tablet 10 mg PO HS 06/25/23 07/28/23 empagliflozin 25 mg tablet 25 mg PO DAILY 06/25/23 07/28/23 (Jardiance) insulin detemir U-100 100 unit/mL 4 unit subcut BID 07/16/23 07/28/23 (3 mL) subcutaneous pen (Levemir FlexPen) <Pam Caruso PA-C - Last Filed: 08/03/23 18:28> Allergies/Adverse Reactions: Allergies Allergy/AdvReac Type Severity Reaction Status Date / Time hydrocodone Allergy Mild UN KNOWN Verified 04/29/23 14:26 tramadol Allergy Other Verified 04/29/23 14:26 <Pam Caruso PA-C - Last Filed: 08/03/23 18:28> Review of Systems Review of Systems: CONSTITUTIONAL: Denies fever GASTROINTESTINAL: Reports abdominal pain. Denies nausea, vomiting, or diarrhea. GENITOURINARY: Denies dysuria or hematuria <Pam Caruso PA-C - Last Filed: 08/03/23 18:28> All systems reviewed & are unremarkable except as noted in HPI and below <Pam Caruso PA-C - Last Filed: 08/03/23 18:28> [facility] Past Medical History Medical History: Medical History (Updated 08/03/23 @ 18:28 by Pam Caruso PA-C) Actinic keratosis of multiple sites of head and neck Acute kidney injury Normal renal ultrasound 04/25/2023. Anemia Arthritis Atherosclerotic heart disease of [place] coronary artery without angina pectoris (02/17/23) Lexiscan stress test on 02/17/2023 reveals small moderately severe fixed defect inferior lateral consistent with [place] with no reversible defects noted with ejection fraction greater than 70% on 02/17/2023. Echo on 02/21/2023 with ejection fraction 60-65% with moderate LVH and grade 1 diastolic dysfunction with trace mitral valve regurgitation. Basal cell carcinoma of scalp (11/2022) 1.8 cm raised, ulcerated lesion on the right anterior scalp BMI 26.0-26.9,adult Chronic bilateral low back pain with right-sided sciatica Chronic kidney disease, stage 3 COVID-19 (05/15/23) Essential (primary) hypertension Fecal impaction Gastroesophageal reflux disease Hearing loss High cholesterol Insomnia Iron deficiency anemia, unspecified Iron 104 with 25% saturation and ferritin 31 with hemoglobin 11.3 on 03/05/2022. Hemoglobin 11.2 with Iron 81 with 19% saturation and ferritin 36 on 09/24/2022. iron 83 with 24%
[2023-08-03 15:03] LABS: Basophils Percent Auto 0.3 % (0.2-1.2); Eosinophils Absolute Auto 0.1 K/mm3 (0-0.3); Eosinophils Percent Auto 1.9 % (0-4.4); Hemoglobin 10.6 g/dL (14.0-18.0); Immature Granulocyte Absolute 0.01 K/mm3 (0.00-0.031); Immature Granulocyte Percent A 0.3 % (0-0.5); Lymphocytes Absolute Auto 0.66 K/mm3 (0.9-3.2); Lymphocytes Percent Auto 17.9 % (18.3-44.2); Mean Corpuscular HGB Conc 33.1 g/dl (32-36); Mean Corpuscular Volume 96.7 fl (80-100); Monocytes Absolute Auto 0.4 K/mm3 (0.1-0.6); Monocytes Percent Auto 10.9 % (2.6-8.5); Neutrophils Absolute Auto 2.5 K/mm3 (1.3-6.7); Neutrophils Percent Auto 68.7 % (45.5-73.1); Platelet Count Result 288 k/mm3 (150-375); Red Blood Count 3.31 M/mm3 (4.6-6.20); Red Cell Distribution Width 15.1 % (11.5-14.5); White Blood Count 3.7 K/mm3 (4.5-10.0)
[2023-08-03 15:13] LABS: Alanine Aminotransferase 21 U/L (6-50); Albumin Level 3.7 g/dL (3.5-5.1); Alkaline Phosphatase 60 U/L (38-126); Anion Gap 6 mmol/L (8-16); Aspartate Amino Transferase 31 U/L (17-59); Bilirubin,Total 0.8 mg/dL (0.2-1.3); Blood Urea Nitrogen 19 mg/dL (9-20); Calcium 9.3 mg/dL (8.4-10.2); Carbon Dioxide 25 mmol/L (22-30); Chloride 103 mmol/L (98-107); Estimated CRCL calculation 53 ml/min; Estimated Glomerular Filt Rate > 60; Glucose 124 mg/dL (65-110); Lipase 145 U/L (23-300); Sodium 134 mmol/L (137-145)
[2023-08-03 18:05] VITALS: BP 155/73; PULSE 78; RESP 18; O2SAT 100
== END 2023-08-03 18:10 | disposition home or self-care (01) ==
PROVIDERS: Physician Assistant; Emergency Provider Emergency Medicine; PCP Family Medicine
DX: K59.00 Constipation, unspecified (principal); I12.9 Hypertensive chronic kidney disease with stage 1 through stage 4 chronic kidney disease, or unspecified chronic kidney disease; E11.22 Type 2 diabetes mellitus with diabetic chronic kidney disease; N18.30 Chronic kidney disease, stage 3 unspecified; E78.2 Mixed hyperlipidemia; I25.10 Atherosclerotic heart disease of native coronary artery without angina pectoris
CPT/HCPCS: 36415; 74177; 80053; 83690; 85025; 99284; Q9967

== ENCOUNTER 2024-01-31 09:09 | Emergency (ER) | payer MEDICARE, SELFPAY ==
--- NOTE | 2024-01-31 09:12 | ED.EAR ---
HPI - Ear Problem General Chief complaint: Ear Stated complaint: Ear Pain Time Seen by Provider: 01/31/24 09:12 Source: patient Mode of arrival: ambulatory Limitations: no limitations History of Present Illness HPI Narrative: David is a 73-year-old male patient presenting to the clinic today with complaints of left ear pain-ear swollen shut with yellow discharge. He reports this has been going on for 1-2 days. He denies any fever chills but cannot hear out of the left ear as it is swollen shut. States he has to try to massage a every couple hours or else the ear throbs. Related Data Home Medications Medication Instructions Recorded Confirmed enzalutamide 40 mg capsule (Xtandi) 160 mg PO DAILY 12/14/19 01/31/24 leuprolide acetate (6 month) 45 mg 45 mg IM [id number] 12/14/19 01/31/24 intramuscular syringe kit (Lupron Depot) cyanocobalamin (vitamin B-12) 1,000 mcg PO DAILY 05/07/21 01/31/24 1,000 mcg tablet calcium carbonate (Oyster Shell 500 mg PO DAILY 12/31/22 01/31/24 Calcium) cbd topical 1 gel topical DAILY PRN Pain 12/31/22 01/31/24 acetaminophen 325 mg tablet 500 mg PO Q6H PRN Pain 04/07/23 01/31/24 (Tylenol) fexofenadine 180 mg tablet 180 mg PO DAILY PRN Allergy 04/25/23 01/31/24 (Sandy Allergy) Symptoms insulin detemir U-100 100 unit/mL 4 unit subcut BID 07/16/23 01/31/24 (3 mL) subcutaneous pen (Levemir FlexPen) ciclopirox 8 % topical solution topical 01/31/24 nitroglycerin 2 % transdermal 01/31/24 01/31/24 ointment (Nitro-Bid) telmisartan 80 mg tablet 80 mg PO DAILY 01/31/24 01/31/24 Allergies Allergy/AdvReac Type Severity Reaction Status Date / Time hydrocodone Allergy Mild UN KNOWN Verified 01/31/24 09:26 tramadol Allergy Other Verified 01/31/24 09:26 Review of Systems Review of Systems: Pertinent positives per HPI. Patient denies any fever, chills, rash, headache, visual changes, dizziness, cough, runny nose, sore throat, shortness of breath, chest pain, palpitations, nausea, vomiting, diarrhea, constipation, abdominal pain, or any urinary issues. [facility] Past Medical History Medical History Actinic keratosis of multiple sites of head and neck Acute kidney injury Normal renal ultrasound 04/25/2023. Acute kidney injury Acute on chronic renal failure Normal renal ultrasound 04/25/2023. Anemia Arthritis Atherosclerotic heart disease of [place] coronary artery without angina pectoris (02/17/23) Lexiscan stress test on 02/17/2023 reveals small moderately severe fixed defect inferior lateral consistent with [place] with no reversible defects noted with ejection fraction greater than 70% on 02/17/2023. Echo on 02/21/2023 with ejection fraction 60-65% with moderate LVH and grade 1 diastolic dysfunction with trace mitral valve regurgitation. Basal cell carcinoma of scalp (11/2022) 1.8 cm raised, ulcerated lesion on the right anterior scalp BMI 26.0-26.9,adult BMI 27.0-27.9,adult Change in bowel movement Chronic bilateral low back pain with right-sided sciatica Chronic constipation Chronic kidney disease, stage 3 COVID-19 (05/15/23) Dehydration Diarrhea Essential (primary) hypertension Fecal impaction Gastroesophageal reflux disease Hearing loss High cholesterol Insomnia Intractable diarrhea Iron deficiency anemia, unspecified Iron 104 with 25% saturation and ferritin 31 with hemoglobin 11.3 on 03/05/2022. Hemoglobin 11.2 with Iron 81 with 19% saturation and ferritin 36 on 09/24/2022. iron 83 with 24% saturation and ferritin 69 with hemoglobin 11.8 on 06/15/2023. 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 Cholesterol 196, triglycerides 153, HDL 64, LDL 105 on 09/24/2022. total cholesterol 180, triglycerides 122, HDL 69 and LDL 90 with ratio 2.6 on 0
[2024-01-31 09:23] VITALS: BP 147/66; PULSE 71; RESP 16; TEMP 36.6; O2SAT 100
--- NOTE | 2024-01-31 11:20 | PC.NURSE ---
0930- DATA ABSTRACTOR inserted an ear wick in the left ear and pt tolerated well. pt instructed to leave it in and place ear drops over the canal so they can make it down the wick into the canal since swelling is moderate at present. pt verbalized understanding of those instructions.
== END 2024-01-31 09:41 | disposition home or self-care (01) ==
PROVIDERS: Emergency Provider Nurse Practitioner Family; PCP Family Medicine
DX: H60.312 Diffuse otitis externa, left ear (principal); I25.10 Atherosclerotic heart disease of native coronary artery without angina pectoris; I12.9 Hypertensive chronic kidney disease with stage 1 through stage 4 chronic kidney disease, or unspecified chronic kidney disease; E11.22 Type 2 diabetes mellitus with diabetic chronic kidney disease; N18.30 Chronic kidney disease, stage 3 unspecified; Z79.4 Long term (current) use of insulin; M19.90 Unspecified osteoarthritis, unspecified site; Z85.828 Personal history of other malignant neoplasm of skin; Z85.46 Personal history of malignant neoplasm of prostate; Z86.16 Personal history of COVID-19; K21.9 Gastro-esophageal reflux disease without esophagitis; E78.00 Pure hypercholesterolemia, unspecified; E78.2 Mixed hyperlipidemia; E53.8 Deficiency of other specified B group vitamins; E55.9 Vitamin D deficiency, unspecified
CPT/HCPCS: 99213; G0463

== ENCOUNTER 2024-02-08 08:55 | Emergency (ER) | payer MEDICARE, SELFPAY ==
[2024-02-08 09:04] VITALS: BP 162/84; PULSE 66; RESP 20; TEMP 36.3; O2SAT 100
[2024-02-08 09:08] VITALS: BP 162/84; PULSE 66; RESP 20; TEMP 36.3; O2SAT 100
--- NOTE | 2024-02-08 09:32 | ED.EAR ---
HPI - Ear Problem General Chief complaint: Ear Stated complaint: Ear Pain Time Seen by Provider: 02/08/24 09:12 Source: patient, RN notes reviewed and old records reviewed Mode of arrival: ambulatory Limitations: no limitations History of Present Illness HPI Narrative: Patient presents today complaining of pain and drainage from the left ear. Was seen at [facility] on 01/31/2024, diagnosed with otitis externa, and prescribed ofloxacin drops and had a wick placed. Reports that the wick fell out within 24 hours he was not having any relief with the drops. He was switched over to Ciprodex by his PCP 3 days ago. States that the drops were not penetrating because the canal is swollen closed. He presents today for a new wick. Reports the pain is keeping him awake at night. Related Data Home Medications Medication Instructions Recorded Confirmed enzalutamide 40 mg capsule (Xtandi) 160 mg PO DAILY 12/14/19 02/08/24 leuprolide acetate (6 month) 45 mg 45 mg IM [id number] 12/14/19 02/08/24 intramuscular syringe kit (Lupron Depot) cyanocobalamin (vitamin B-12) 1,000 mcg PO DAILY 05/07/21 02/08/24 1,000 mcg tablet calcium carbonate (Oyster Shell 500 mg PO DAILY 12/31/22 02/08/24 Calcium) cbd topical 1 gel topical DAILY PRN Pain 12/31/22 02/08/24 acetaminophen 325 mg tablet 500 mg PO Q6H PRN Pain 04/07/23 02/08/24 (Tylenol) fexofenadine 180 mg tablet 180 mg PO DAILY PRN Allergy 04/25/23 02/08/24 (Sandy Allergy) Symptoms insulin detemir U-100 100 unit/mL 4 unit subcut BID 07/16/23 02/08/24 (3 mL) subcutaneous pen (Levemir FlexPen) ciclopirox 8 % topical solution 1 applic topical DIRECTED 01/31/24 02/08/24 nitroglycerin 2 % transdermal 1 ea topical DIRECTED 01/31/24 02/08/24 ointment (Nitro-Bid) telmisartan 80 mg tablet 80 mg PO DAILY 01/31/24 02/08/24 Allergies Allergy/AdvReac Type Severity Reaction Status Date / Time hydrocodone Allergy Mild UN KNOWN Verified 01/31/24 09:26 tramadol Allergy Other Verified 01/31/24 09:26 Review of Systems Review of Systems: CONSTITUTIONAL: Denies body aches, fever, chills, or sweats. EYES: Denies visual changes, redness, or discharge. ENT: Denies rhinorrhea, congestion, sore throat. + left ear pain and drainage CARDIOVASCULAR: Denies chest pain, palpitations, or edema. RESPIRATORY: Denies cough or dyspnea. GASTROINTESTINAL: Denies abdominal pain, nausea, vomiting, or diarrhea. GENITOURINARY: Denies dysuria or hematuria. SKIN: Denies rash, itching, or wounds. MUSCULOSKELETAL: Denies back pain, joint pain, or myalgia. NEUROLOGIC: Denies headache, numbness, tingling, or weakness. PSYCH: Denies depression or anxiety. [facility] Past Medical History Medical History Actinic keratosis of multiple sites of head and neck Acute kidney injury Normal renal ultrasound 04/25/2023. Acute kidney injury Acute on chronic renal failure Normal renal ultrasound 04/25/2023. Anemia Arthritis Atherosclerotic heart disease of [place] coronary artery without angina pectoris (02/17/23) Lexiscan stress test on 02/17/2023 reveals small moderately severe fixed defect inferior lateral consistent with [place] with no reversible defects noted with ejection fraction greater than 70% on 02/17/2023. Echo on 02/21/2023 with ejection fraction 60-65% with moderate LVH and grade 1 diastolic dysfunction with trace mitral valve regurgitation. Basal cell carcinoma of scalp (11/2022) 1.8 cm raised, ulcerated lesion on the right anterior scalp BMI 26.0-26.9,adult BMI 27.0-27.9,adult Change in bowel movement Chronic bilateral low back pain with right-sided sciatica Chronic constipation Chronic kidney disease, stage 3 COVID-19 (05/15/23) Dehydration Diarrhea Essential (primary) hypertension Fecal impaction Gastroesophageal reflux disease Hearing loss High cholesterol Insomnia Intractable diarrhea Iron deficiency anemia, unspecified Iron 104
== END 2024-02-08 09:43 | disposition home or self-care (01) ==
PROVIDERS: Emergency Provider Nurse Practitioner; PCP Family Medicine
DX: H60.502 Unspecified acute noninfective otitis externa, left ear (principal); M19.90 Unspecified osteoarthritis, unspecified site; I25.10 Atherosclerotic heart disease of native coronary artery without angina pectoris; I13.10 Hypertensive heart and chronic kidney disease without heart failure, with stage 1 through stage 4 chronic kidney disease, or unspecified chronic kidney disease; E11.22 Type 2 diabetes mellitus with diabetic chronic kidney disease; N18.30 Chronic kidney disease, stage 3 unspecified; Z79.4 Long term (current) use of insulin; K21.9 Gastro-esophageal reflux disease without esophagitis; E78.00 Pure hypercholesterolemia, unspecified; E78.2 Mixed hyperlipidemia; E53.8 Deficiency of other specified B group vitamins; Z85.828 Personal history of other malignant neoplasm of skin; Z96.651 Presence of right artificial knee joint; Z96.611 Presence of right artificial shoulder joint
CPT/HCPCS: 99212; G0463

== ENCOUNTER 2024-02-10 09:04 | Emergency (ER) | payer MEDICARE, SELFPAY ==
[2024-02-10 09:20] VITALS: BP 157/72; PULSE 64; RESP 16; TEMP 36.4; O2SAT 100
--- NOTE | 2024-02-10 09:49 | ED.EAR ---
HPI - Ear Problem General Chief complaint: Ear Stated complaint: ear infection/meds not working Source: patient Mode of arrival: ambulatory Limitations: no limitations History of Present Illness HPI Narrative: patient presents for evaluation of left-sided ear pain. He was seen here on 01/31/2024 at which time he was diagnosed with otitis externa. He was given a prescription for ofloxacin and an ear wick was placed at that time. He returned here on 02/07 for similar symptoms. His primary doctor had switched him to ciprodex three days prior. A new ear wick was placed at his 02/07 visit. He states his symptoms are not improving. He reports pain, decreased hearing on the left and yellow drainage. Denies tinnitus. He states that the ear canal is edematous. He is diabetic. Home blood sugars running between 70 and 200. Related Data Home Medications Medication Instructions Recorded Confirmed enzalutamide 40 mg capsule (Xtandi) 160 mg PO DAILY 12/14/19 02/10/24 leuprolide acetate (6 month) 45 mg 45 mg IM [id number] 12/14/19 02/10/24 intramuscular syringe kit (Lupron Depot) cyanocobalamin (vitamin B-12) 1,000 mcg PO DAILY 05/07/21 02/10/24 1,000 mcg tablet calcium carbonate (Oyster Shell 500 mg PO DAILY 12/31/22 02/10/24 Calcium) cbd topical 1 gel topical DAILY PRN Pain 12/31/22 02/10/24 acetaminophen 325 mg tablet 500 mg PO Q6H PRN Pain 04/07/23 02/10/24 (Tylenol) fexofenadine 180 mg tablet 180 mg PO DAILY PRN Allergy 04/25/23 02/10/24 (Sandy Allergy) Symptoms insulin detemir U-100 100 unit/mL 4 unit subcut BID 07/16/23 02/10/24 (3 mL) subcutaneous pen (Levemir FlexPen) ciclopirox 8 % topical solution 1 applic topical DIRECTED 01/31/24 02/10/24 nitroglycerin 2 % transdermal 1 ea topical DIRECTED 01/31/24 02/10/24 ointment (Nitro-Bid) telmisartan 80 mg tablet 80 mg PO DAILY 01/31/24 02/10/24 Allergies Allergy/AdvReac Type Severity Reaction Status Date / Time hydrocodone Allergy Mild UN KNOWN Verified 02/10/24 09:22 tramadol Allergy Other Verified 02/10/24 09:22 Review of Systems Review of Systems: CONSTITUTIONAL: Denies fever, chills, or sweats. EYES: Denies visual changes, redness, or discharge. ENT: reports left-sided otalgia, hearing loss, drainage from left ear. Denies tinnitus. Denies rhinorrhea, congestion, or sore throat CARDIOVASCULAR: Denies chest pain, palpitations, or edema. RESPIRATORY: Denies cough or dyspnea. GASTROINTESTINAL: Denies abdominal pain, nausea, vomiting, or diarrhea. GENITOURINARY: Denies dysuria or hematuria. SKIN: Denies rash or itching. MUSCULOSKELETAL: Denies back pain, joint pain, or myalgia. NEUROLOGIC: Denies headache, numbness, dizziness, or weakness. PSYCHIATRIC: Denies anxiety or depression. [facility] Past Medical History Medical History Actinic keratosis of multiple sites of head and neck Acute kidney injury Normal renal ultrasound 04/25/2023. Acute kidney injury Acute on chronic renal failure Normal renal ultrasound 04/25/2023. Anemia Arthritis Atherosclerotic heart disease of [place] coronary artery without angina pectoris (02/17/23) Lexiscan stress test on 02/17/2023 reveals small moderately severe fixed defect inferior lateral consistent with SD with no reversible defects noted with ejection fraction greater than 70% on 02/17/2023. Echo on 02/21/2023 with ejection fraction 60-65% with moderate LVH and grade 1 diastolic dysfunction with trace mitral valve regurgitation. Basal cell carcinoma of scalp (11/2022) 1.8 cm raised, ulcerated lesion on the right anterior scalp BMI 26.0-26.9,adult BMI 27.0-27.9,adult Change in bowel movement Chronic bilateral low back pain with right-sided sciatica Chronic constipation Chronic kidney disease, stage 3 COVID-19 (05/15/23) Dehydration Diarrhea Essential (primary) hypertension Fecal impaction Gastroesophageal reflux disease Hearing loss High chol
[2024-02-10 10:00] LABS: Glucose Point of Care 129 mg/dl (65-105)
[2024-02-10 10:02] VITALS: BP 129/55; PULSE 58; RESP 16; O2SAT 100
[2024-02-10 10:11] VITALS: BP 119/68; PULSE 58; RESP 24; O2SAT 97
--- NOTE | 2024-02-10 10:54 | PC.NURSE ---
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 crash cart obtained and ems called. pt HR 54 on monitor and strip printed for chart, sternal rubs and after the 3rd rub pt moved mouth and blinked, and started to come around. 0945- iv access established, #20 in right ac, after first attempt in right lower forearm vein blew.
== END 2024-02-10 10:02 | disposition short-term general hospital (02) ==
PROVIDERS: Emergency Provider Nurse Practitioner; PCP Family Medicine
DX: R55 Syncope and collapse (principal); I25.10 Atherosclerotic heart disease of native coronary artery without angina pectoris; Z85.828 Personal history of other malignant neoplasm of skin; I12.9 Hypertensive chronic kidney disease with stage 1 through stage 4 chronic kidney disease, or unspecified chronic kidney disease; E11.22 Type 2 diabetes mellitus with diabetic chronic kidney disease; N18.30 Chronic kidney disease, stage 3 unspecified; Z79.4 Long term (current) use of insulin; K21.9 Gastro-esophageal reflux disease without esophagitis; E78.00 Pure hypercholesterolemia, unspecified; E78.2 Mixed hyperlipidemia; G47.33 Obstructive sleep apnea (adult) (pediatric); M15.9 Polyosteoarthritis, unspecified; E53.8 Deficiency of other specified B group vitamins; Z96.651 Presence of right artificial knee joint; Z96.611 Presence of right artificial shoulder joint
CPT/HCPCS: 82948; 99212; G0463

== ENCOUNTER 2024-02-10 10:27 | Emergency (ER) | payer MEDICARE, SELFPAY ==
[2024-02-10] VITALS (14 sets, daily range): BP systolic 115–159; BP diastolic 5–72; PULSE 49–59; RESP 14–20; TEMP 36.4; O2SAT 97–100
--- NOTE | 2024-02-10 10:35 | ECG_ITS ---
Test Date: 2024-02-10 10:41:12 Measurements Intervals [place] Rate: 53 P: 36 PA: 158 QRS: -10 QRSD: 100 T: 28 QT: 459 QTc: 433 Interpretive Statements SINUS BRADYCARDIA MODERATE VOLTAGE CRITERIA FOR LVH, CONSIDER NORMAL VARIANT [MEETS CRITERIA IN ONE OF: R(aVL), S(V1), R(V5), R(V5/V6)+S(V1)] ABNORMAL ECG No previous ECG available for comparison Electronically Signed On 02-10-2024 15:15:26 CDT by Deyvi Aquino M.D.
[2024-02-10 10:53] LABS: Basophils Percent Auto 0.2 % (0.2-1.2); Eosinophils Absolute Auto 0.3 K/mm3 (0-0.3); Hematocrit 33.1 % (42.0-52.0); Hemoglobin 10.7 g/dL (14.0-18.0); Immature Granulocyte Absolute 0.03 K/mm3 (0.00-0.031); Immature Granulocyte Percent A 0.5 % (0-0.5); Lymphocytes Percent Auto 13.7 % (18.3-44.2); Mean Corpuscular HGB Conc 32.3 g/dl (32-36); Mean Corpuscular Hemoglobin 27.9 pg (26-34); Mean Corpuscular Volume 86.2 fl (80-100); Mean Platelet Volume 8.4 fl (7.4-10.4); Monocytes Absolute Auto 0.5 K/mm3 (0.1-0.6); Monocytes Percent Auto 7.7 % (2.6-8.5); Neutrophils Absolute Auto 4.2 K/mm3 (1.3-6.7); Neutrophils Percent Auto 72.9 % (45.5-73.1); Platelet Count Result 263 k/mm3 (150-375); Red Blood Count 3.84 M/mm3 (4.6-6.20); Red Cell Distribution Width 15.6 % (11.5-14.5); White Blood Count 5.8 K/mm3 (4.5-10.0)
[2024-02-10 11:02] LABS: Alanine Aminotransferase 14 U/L (6-50); Albumin Level 4.1 g/dL (3.5-5.1); Alkaline Phosphatase 89 U/L (38-126); Anion Gap 8 mmol/L (4-12); Aspartate Amino Transferase 21 U/L (17-59); Bilirubin,Total 0.7 mg/dL (0.2-1.3); Blood Urea Nitrogen 35 mg/dL (9-20); Calcium 9.8 mg/dL (8.4-10.2); Carbon Dioxide 25 mmol/L (22-30); Chloride 105 mmol/L (98-107); Estimated CRCL calculation 52 ml/min; Estimated Glomerular Filt Rate > 60; Glucose 118 mg/dL (65-110); Potassium 4.3 mmol/L (3.4-5.0); Sodium 138 mmol/L (137-145)
[2024-02-10] MEDS: HYDROcodone/acetaminophen (*CRX) 5-325 MG TABLET 1 TAB PO (11:50)
--- NOTE | 2024-02-10 13:05 | ED.SYNCOPE ---
HPI - Syncope General Chief Complaint: Syncope Stated Complaint: syncope Time Seen by Provider: 02/10/24 11:28 History of Present Illness HPI narrative: Patient is a 73-year-old male who presents ER from urgent care after having a syncopal event. Patient has otitis externa on left side and is getting Ciprodex drops from his PCP. 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 Denies striking his head as he was still in the chair. He has no complaints at this time just chronic discomfort to his left ear. Related Data Home Medications Medication Instructions Recorded Confirmed enzalutamide 40 mg capsule (Xtandi) 160 mg PO DAILY 12/14/19 02/10/24 leuprolide acetate (6 month) 45 mg 45 mg IM [id number] 12/14/19 02/10/24 intramuscular syringe kit (Lupron Depot) cyanocobalamin (vitamin B-12) 1,000 mcg PO DAILY 05/07/21 02/10/24 1,000 mcg tablet calcium carbonate (Oyster Shell 500 mg PO DAILY 12/31/22 02/10/24 Calcium) cbd topical 1 gel topical DAILY PRN Pain 12/31/22 02/10/24 acetaminophen 325 mg tablet 500 mg PO Q6H PRN Pain 04/07/23 02/10/24 (Tylenol) fexofenadine 180 mg tablet 180 mg PO DAILY PRN Allergy 04/25/23 02/10/24 (Sandy Allergy) Symptoms insulin detemir U-100 100 unit/mL 4 unit subcut BID 07/16/23 02/10/24 (3 mL) subcutaneous pen (Levemir FlexPen) ciclopirox 8 % topical solution 1 applic topical DIRECTED 01/31/24 02/10/24 nitroglycerin 2 % transdermal 1 ea topical DIRECTED 01/31/24 02/10/24 ointment (Nitro-Bid) telmisartan 80 mg tablet 80 mg PO DAILY 01/31/24 02/10/24 Allergies Allergy/AdvReac Type Severity Reaction Status Date / Time hydrocodone Allergy Mild UN KNOWN Verified 02/10/24 11:28 tramadol Allergy Other Verified 02/10/24 11:28 Review of Systems Constitutional: Constitutional: Reports no additional constitutional complaints ENT: Denies dizziness, Denies nasal congestion and Denies sore throat Comments: Left ear pain Cardiovascular: Cardiovascular: Reports no additional cardiovascular complaints Neurologic: Reports syncope, Denies headache(s), Denies focal weakness and Denies numbness PMFSH Past Medical History Medical History Actinic keratosis of multiple sites of head and neck Acute kidney injury Normal renal ultrasound 04/25/2023. Acute kidney injury Acute on chronic renal failure Normal renal ultrasound 04/25/2023. Anemia Arthritis Atherosclerotic heart disease of [place] coronary artery without angina pectoris (02/17/23) Lexiscan stress test on 02/17/2023 reveals small moderately severe fixed defect inferior lateral consistent with [place] with no reversible defects noted with ejection fraction greater than 70% on 02/17/2023. Echo on 02/21/2023 with ejection fraction 60-65% with moderate LVH and grade 1 diastolic dysfunction with trace mitral valve regurgitation. Basal cell carcinoma of scalp (11/2022) 1.8 cm raised, ulcerated lesion on the right anterior scalp BMI 26.0-26.9,adult BMI 27.0-27.9,adult Change in bowel movement Chronic bilateral low back pain with right-sided sciatica Chronic constipation Chronic kidney disease, stage 3 COVID-19 (05/15/23) Dehydration Diarrhea Essential (primary) hypertension Fecal impaction Gastroesophageal reflux disease Hearing loss High cholesterol Insomnia Intractable diarrhea Iron deficiency anemia, unspecified Iron 104 with 25% saturation and ferritin 31 with hemoglobin 11.3 on 03/05/2022. Hemoglobin 11.2 with Iron 81 with 19% saturation and ferritin 36 on 09/24/2022. iron 83 with 24% saturation and ferritin 69 with hemoglobin 11.8 on 06/15/2023. detention (current) use of insulin Lymphedema Bilateral lower extremities treated with sequential pneumatic compression device Mixed hyperlipidemia Total cholesterol 196, triglycerides 168, HDL 66, LDL 102 on 03/05/2022. Cholesterol 196, triglyce
== END 2024-02-10 14:11 | disposition home or self-care (01) ==
PROVIDERS: Emergency Provider Emergency Medicine; PCP Family Medicine
DX: R55 Syncope and collapse (principal); H60.92 Unspecified otitis externa, left ear; I12.9 Hypertensive chronic kidney disease with stage 1 through stage 4 chronic kidney disease, or unspecified chronic kidney disease; N18.30 Chronic kidney disease, stage 3 unspecified; E11.22 Type 2 diabetes mellitus with diabetic chronic kidney disease; E78.2 Mixed hyperlipidemia; E55.9 Vitamin D deficiency, unspecified; I25.10 Atherosclerotic heart disease of native coronary artery without angina pectoris; D50.9 Iron deficiency anemia, unspecified; K21.9 Gastro-esophageal reflux disease without esophagitis; M19.90 Unspecified osteoarthritis, unspecified site; G47.33 Obstructive sleep apnea (adult) (pediatric); D51.9 Vitamin B12 deficiency anemia, unspecified; Z96.651 Presence of right artificial knee joint; Z96.611 Presence of right artificial shoulder joint; Z85.828 Personal history of other malignant neoplasm of skin; Z87.01 Personal history of pneumonia (recurrent); Z86.16 Personal history of COVID-19; Z79.84 Long term (current) use of oral hypoglycemic drugs; Z79.899 Other long term (current) drug therapy
CPT/HCPCS: 36415; 80053; 82948; 85025; 93005; 99284; A9270

== ENCOUNTER 2024-02-26 08:03 | Outpatient (CLI) | payer MEDICARE, SELFPAY ==
--- NOTE | ~2024-02-26 | CT_ITS ---
EXAMINATION: CT IAC/mastoids BI wo con DATE: 02/26/2024 08:34 INDICATION: Other specified disorders of left external auditory canal. Chronic mastoiditis. TECHNIQUE: Computed tomography (CT) of the temporal bones was performed without intravenous contrast. Automated exposure control and iterative reconstruction technique were employed. The dose-length pro duct was 297.29 mGy-cm. COMPARISON: Head CT 07/16/2023 FINDINGS: RIGHT TEMPORAL BONE: The internal auditory canal, cochlea, vestibule, semicircular canals, vestibular aqueduct, facial ner ve course, carotid canal, jugular bulb, ossicles, Prussak space, scutum, tympanic membrane, and exter nal auditory canal are normal. There is a right mastoid effusion. There is severe acromioclavicular j oint osteoarthritis with loose bodies. LEFT TEMPORAL BONE: The internal auditory canal, cochlea, vestibule, semicircular canals, vestibular aqueduct, facial ner ve course, carotid canal, and jugular bulb are normal. There is material in the tympanic cavity inclu ding adjacent to the ossicles and in Prussak space. There are erosions of the scutum. There is a mast oid effusion. There is soft tissue thickening around external auditory canal with total occlusion of external auditory canal. There are erosions of the bony [place] of the external auditory canal with ero sions of the adjacent mastoid and mastoid dehiscence. There is severe osteoarthritis of the temporoma ndibular joint with loose bodies. IMPRESSION: 1. Right mastoid effusion. 2. Left otomastoiditis. Left otitis externa. Reviewed, dictated and finalized at location A.
== END 2024-02-26 08:04 | disposition home or self-care (01) ==
PROVIDERS: PCP Family Medicine; Visit Provider Otolaryngology
DX: H61.892 Other specified disorders of left external ear (principal); H70.12 Chronic mastoiditis, left ear; H90.6 Mixed conductive and sensorineural hearing loss, bilateral; H74.8X1 Other specified disorders of right middle ear and mastoid; H60.8X2 Other otitis externa, left ear; H70.92 Unspecified mastoiditis, left ear
CPT/HCPCS: 70480

== ENCOUNTER 2024-05-06 13:02 | Outpatient (CLI) | payer MEDICARE, SELFPAY | END 2024-05-06 13:03 | disposition home or self-care (01) | LOC: ANHAUDASC 13:03 | PROVIDERS: PCP Family Medicine; Visit Provider Otolaryngology | DX: H60.92 Unspecified otitis externa, left ear (principal); H93.13 Tinnitus, bilateral; H90.6 Mixed conductive and sensorineural hearing loss, bilateral; H70.12 Chronic mastoiditis, left ear; H61.892 Other specified disorders of left external ear | CPT/HCPCS: 92557; 92567 ==

== ENCOUNTER 2024-08-18 11:12 | Emergency (ER) | payer MEDICARE, SELFPAY ==
--- NOTE | ~2024-08-18 | XR_ITS ---
EXAMINATION: XR chest 2V DATE: 08/18/2024 12:23 INDICATION: Cough and shortness of breath TECHNIQUE: PA and lateral views of the chest were obtained. COMPARISON: Chest radiograph dated 07/16/2023 FINDINGS: Unchanged mild elevation the left hemidiaphragm. No focal airspace opacities, pulmonary edema, pleura l effusion or pneumothorax. The cardiomediastinal silhouette is normal. Severe left glenohumeral oste oarthritis. Partially visualized right shoulder arthroplasty. IMPRESSION: 1. Unchanged mild elevation the left hemidiaphragm. No acute cardiopulmonary disease. Reviewed, dictated and finalized at location B. DUST SPRAYER IMPRESSION: 1. Unchanged mild elevation the left hemidiaphragm. No acute cardiopulmonary di sease.
[2024-08-18 11:31] VITALS: BP 165/71; PULSE 71; RESP 16; TEMP 36.5; O2SAT 98
--- NOTE | 2024-08-18 12:09 | ED.URI ---
HPI - URI/Sore Throat General Chief Complaint: Upper Respiratory Infection Stated Complaint: Congestion,cough Time Seen by Provider: 08/18/24 11:45 Source: patient Mode of arrival: ambulatory Limitations: no limitations History of Present Illness HPI Narrative: David is a 74-year-old male patient presenting to the clinic today with complaints of chest congestion, cough, and nasal congestion x6 days. He denies any fevers, chills, body aches. Is bringing up clear phlegm when he coughs. He reports he does feel mildly short of breath on exertion. Denies any chest pain. MD elicited complaint: cough, rhinorrhea, nasal congestion and other (Shortness of breath) Related Data Home Medications ?Medication ?Instructions ?Recorded ?Confirmed ?Last Taken ?Type enzalutamide 40 mg capsule (Xtandi) 160 mg PO DAILY 12/14/19 08/18/24 Unknown History leuprolide acetate (6 month) 45 mg 45 mg IM [id number] 12/14/19 08/18/24 Unknown History intramuscular syringe kit (Lupron Depot) cyanocobalamin (vitamin B-12) 1,000 mcg PO DAILY 05/07/21 08/18/24 Unknown History 1,000 mcg tablet calcium carbonate (Oyster Shell 500 mg PO DAILY 12/31/22 08/18/24 Unknown History Calcium) cbd topical 1 gel topical DAILY PRN Pain 12/31/22 08/18/24 Unknown History acetaminophen 325 mg tablet 500 mg PO Q6H PRN Pain 04/07/23 08/18/24 Unknown History (Tylenol) Allergies Allergy/AdvReac Type Severity Reaction Status Date / Time unknown Allergy Mild Unknown Uncoded 08/18/24 11:37 Review of Systems Review of Systems: Pertinent positives per HPI. Patient denies any fever, chills, rash, headache, visual changes, dizziness, chest pain, palpitations, nausea, vomiting, diarrhea, constipation, abdominal pain, or any urinary issues. [facility] Past Medical History Medical History Actinic keratosis of multiple sites of head and neck Acute kidney injury Normal renal ultrasound 04/25/2023. Acute kidney injury Acute on chronic renal failure Normal renal ultrasound 04/25/2023. Anemia Arthritis Atherosclerotic heart disease of [place] coronary artery without angina pectoris (02/17/23) Lexiscan stress test on 02/17/2023 reveals small moderately severe fixed defect inferior lateral consistent with [place] with no reversible defects noted with ejection fraction greater than 70% on 02/17/2023. Echo on 02/21/2023 with ejection fraction 60-65% with moderate LVH and grade 1 diastolic dysfunction with trace mitral valve regurgitation. Basal cell carcinoma of scalp (11/2022) 1.8 cm raised, ulcerated lesion on the right anterior scalp BMI 26.0-26.9,adult BMI 27.0-27.9,adult Change in bowel movement Chronic bilateral low back pain with right-sided sciatica Chronic constipation Chronic kidney disease, stage 3 Normal renal function 02/10/2024 with BUN 35, creatinine 1.10 with GFR greater than 60. COVID-19 (05/15/23) Dehydration Diarrhea Encounter for screening for vascular disease (03/04/24) Insurance healthcare screening FANNY normal with 1.28 on the left and 1.32 on the right 02/03/2024. Essential (primary) hypertension Fecal impaction Gastroesophageal reflux disease Hearing loss High cholesterol Insomnia Intractable diarrhea Iron deficiency anemia, unspecified Iron 104 with 25% saturation and ferritin 31 with hemoglobin 11.3 on 03/05/2022. Hemoglobin 11.2 with Iron 81 with 19% saturation and ferritin 36 on 09/24/2022. iron 83 with 24% saturation and ferritin 69 with hemoglobin 11.8 on 06/15/2023. alf (current) use of insulin Lymphedema Bilateral lower extremities treated with sequential pneumatic compression device Mixed hearing loss, bilateral Mixed hyperlipidemia Total cholesterol 196, triglycerides 168, HDL 66, LDL 102 on 03/05/2022. Cholesterol 196, triglycerides 153, HDL 64, LDL 105 on 09/24/2022. total cholesterol 180, triglycerides 122, HDL 69 and LDL 90 with ratio 2.6 on 10/28/2022. cholesterol 185, triglycerides 85, HDL 73, LDL 94 with ratio 2.5 on 12/08/2023. Nausea JOSE on CPAP Stopped CPAP after weight loss Osteoarthritis involving multiple joints on both sides of body Otitis externa Polyp of colon Prostate cancer Psoriasis Renal insufficiency, mild BUN 27, creatinine 1.43 with GFR 52 on 03/05/2022. BUN 28 with creatinine 1.30 with GFR 58 on 09/24/2022. BUN 31, creatinine 1.39 with GFR 53 on 10/28/2022. BUN 36, creatinine 1.52, GFR 47 on 06/15/2023. BUN 33, creatinine 0.96 on 12/08/2023. Insurance screening 02/03/2024 with GFR greater than 60 and urine microalbumin ratio less than 30. Right carotid bruit Normal carotid Doppler study 12/27/2020 Right middle lobe pneumonia (~11/19/23) diagnosed with right-sided pneumonia in urgent care 11/26/2023. Screening for diabetic retinopathy no diabetic retinopathy on 11/27/2021. No retinopathy 12/02/2022. Screening for osteoporosis (12/12/22) DEXA scan 12/12/2022 with T-score 2.3 at the spine, 0.9 left hip, 0.7 right hip. Spinal stenosis Stool lamine color Normal ultrasound of the gallbladder 04/25/2023. Type 2 diabetes mellitus Type 2 diabetes mellitus without complication, with long-term current use of insulin Fasting glucose 88 with hemoglobin A1c 6.0 on 03/05/2022. Glucose 107 with hemoglobin A1c 6.4 on 09/24/2022. Glucose 102 with hemoglobin A1c 6.1 on 02/03/2023. Fasting glucose 90 on 12/08/2023. Hemoglobin A1c 5.1 on 12/09/2023. Unintentional weight loss of 10% body weight within 6 months (02/2023) Vision loss Vitamin B12 deficiency anemia, unspecified level normal at 1348 with hemoglobin 11.3 on 03/05/2022. Level normal at 1497 with folic acid 18.3 and hemoglobin 11.2 on 09/24/2022. Vitamin D deficiency, unspecified Level low at 26 on 10/28/2022. Wears glasses Weight loss Surgical History Surgical History History of carpal tunnel release bilateral History of knee replacement 2013, right knee History of right shoulder replacement March 11, 2023 History of tonsillectomy and adenoidectomy Previous back surgery 2013, fusion L2-4 Family History Family History Other Arthritis Diabetes mellitus High cholesterol Hypertension Social History Social History Social History: Surrogate medical decision maker: Sapphire Connelly, spouse. Code status: Full code. Smoking status: Never smoker Second hand tobacco smoke exposure: No Alcohol intake: never Alcohol use details: He reports rare alcohol use currently. Substance use: never Substance use type: other Other substance usage details: cbd knees Do You Feel Safe in your Home?: Yes Lack of Transportation: No Lack of Food: Never True Current Housing: I Have Housing Concerned About Future Housing: No Difficulty Paying Gas/Electric Bills: No Difficulty Paying for Meds: No Currently Unemployed: No Education: Bachelor's Degree Difficulty w/ Childcare or Family Care: No Living arrangements: with family Occupation/Education: retired Spiritual care concerns: No Comments At the time of my signature, I reviewed and agree with the nursing past medical, surgical, social, and family history. There is no relevant family history pertinent to the patient complaint. Exam Narrative: General: Well-developed, well nourished, in no apparent distress Head: Normocephalic, atraumatic Eyes: Pupils equally round and reactive to light bilaterally, EOM intact, sclera and conjunctive clear, no discharge, lids normal Ears: TMs intact and clear, ear canals clear, no drainage, grossly hearing normal. Nose: Nares patent, clear nasal discharge, no inflammation, no sinus tenderness. Mouth: Oral pharynx without lesions or masses, good dentition, MMM. Neck: Supple, trachea midline, no enlargement of anterior or posterior cervical nodes, no thyroid masses or goiter palpable. Cardio: Regular rate and rhythm, s1 and s2 normal, no murmur appreciated. Resp: Inspiratory wheezing with expiratory rhonchi, no rales or rubs Course Course Emergency Course: Portions of this record may have been created with voice recognition software. Level of Care: Express Care Visit Vital Signs Vital signs: Vital Signs Temperature 36.5 C 08/18/24 11:31 Pulse Rate 71 08/18/24 11:31 Respiratory Rate 16 08/18/24 11:31 Blood Pressure 165/71 H 08/18/24 11:31 Pulse Oximetry 98 08/18/24 11:31 Temperature 36.5 C 08/18/24 11:31 Pulse Rate 71 08/18/24 11:31 Respiratory Rate 16 08/18/24 11:31 Blood Pressure 165/71 H 08/18/24 11:31 Pulse Oximetry 98 08/18/24 11:31 Vital signs reviewed MDM - URI/Sore Throat MDM Narrative Medical decision making narrative: At the time of visit patient is resting comfortably on the exam table. Patient appears to be nontoxic. Diagnostics: Chest x-ray negative for any acute cardiopulmonary process. Plan: I suspect patient has acute bronchitis. Prescription for azithromycin, prednisone, and an albuterol inhaler was sent to the pharmacy. Supportive measures were discussed with the patient and they voiced understanding discharge instructions and agrees to treatment plan. Return precautions reviewed Differential Diagnosis Differential diagnosis: Likely upper respiratory infection, otitis media, sinusitis, viral infection, bronchitis, influenza, pharyngitis and other (COVID) Imaging Data Radiologist's impression: ITS Impressions Chest X-Ray 08/18/24 12:27 IMPRESSION: 1. Unchanged mild elevation the left hemidiaphragm. No acute cardiopulmonary disease. Discharge Plan Discharge Clinical Impression: Bronchitis Patient Disposition: Home, Self-Care Condition: Stable Instructions: Antibiotic Form, Acute Bronchitis (ED) Additional Instructions: Chest x-rays negative for any acute cardiopulmonary process. Take prescription medications only as prescribed-albuterol inhaler, prednisone, and azithromycin Increase fluids and stay well hydrated Tylenol/motrin for pain/fever Flonase and OTC antihistamines as directed Vicks vapor rub to open sinuses Sinus rinses for congestion Cepacol spray, cough drops, throat lozenges, warm tea with honey/lemon, gargle salt water to soothe throat BRAT diet for diarrhea Clear liquids x 24 hours then advance as tolerated for nausea/vomiting Go to the ED if you develop a worsening in your condition- high fever not controlled by Tylenol or Motrin, dehydration, weakness, lethargy, shortness of breath, or chest pain. Follow up with your PCP in 3-5 days if symptoms persist. Patient Language: Indonesian Prescriptions: New azithromycin 250 mg tablet See Rx Instructions .ROUTE .COMPLEX Qty: 6 0RF Rx Instructions: For 250 mg dose pack: take 500 mg today (day 1), then 250 mg for 4 days (days 2-5) prednisone 20 mg tablet 40 mg PO DAILY 5 Days Qty: 10 0RF albuterol sulfate 90 mcg/actuation HFA aerosol inhaler 2 puff inhalation Q4-6H PRN (Reason: shortness of breath or wheezing) 30 Days Qty: 8.5 0RF No Action Xtandi 40 mg capsule 160 mg PO DAILY Lupron Depot (6 Month) 45 mg syringe kit 45 mg IM [id number] Patient Comments: 4 months ago Rx Instructions: last taken in January per pt calcium carbonate [Oyster Shell Calcium] 500 mg calcium (1,250 mg) tablet 500 mg PO DAILY Patient Comments: dose unknown cbd topical 1 gel topical DAILY PRN (Reason: Pain) Rx Instructions: daily knees/shoulders acetaminophen [Tylenol] 325 mg tablet 500 mg PO Q6H PRN (Reason: Pain) pantoprazole 40 mg tablet,delayed release (DR/EC) 40 mg PO BID Qty: 180 3RF polyethylene glycol 3350 [Miralax] 17 gram/dose powder 17 g PO DAILY PRN (Reason: constipation) Qty: 510 3RF losartan 100 mg tablet 100 mg PO DAILY Qty: 90 2RF cyanocobalamin (vitamin B-12) 1,000 mcg tablet 1,000 mcg PO DAILY cholecalciferol (vitamin D3) 50 mcg (2,000 unit) capsule 50 mcg PO DAILY Qty: 90 3RF amitriptyline 10 mg tablet 10 mg PO HS Qty: 90 3RF dutasteride-tamsulosin [Rissa] 0.5-0.4 mg capsule, ER multiphase 24 hr 1 cap PO DAILY Qty: 90 3RF Jardiance 25 mg tablet 25 mg PO DAILY Qty: 90 3RF ciprofloxacin-dexamethasone 0.3-0.1 % drops,suspension 4 drp otic (ear) Q12H Qty: 7.5 2RF Rx Instructions: put 4 drops in left ear 2 or 3 times per day with ear up for 1 minute afterwards metoprolol succinate 50 mg tablet extended release 24 hr 50 mg PO DAILY Qty: 90 3RF atorvastatin 20 mg tablet 20 mg PO . twice weekly Qty: 30 3RF insulin glargine [Lantus Solostar U-100 Insulin] 100 unit/mL (3 mL) insulin pen 4 unit subcut BID Qty: 3 11RF triamterene-hydrochlorothiazid 37.5-25 mg capsule See Rx Instructions .ROUTE .COMPLEX Qty: 90 3RF Dose Instruction: TAKE 1 CAPSULE BY MOUTH EVERY DAY Rx Instructions: TAKE 1 CAPSULE BY MOUTH EVERY DAY Follow-up/Referrals: Gibson Segura MD [Primary Care Provider] - Time of Disposition: 12:45 Quality NIHSS Nursing Documentation ED NIHSS nursing documentation: reviewed/agree
== END 2024-08-18 12:52 | disposition home or self-care (01) ==
PROVIDERS: Emergency Provider Nurse Practitioner Family; PCP Family Medicine
DX: J40 Bronchitis, not specified as acute or chronic (principal); I25.10 Atherosclerotic heart disease of native coronary artery without angina pectoris; N18.30 Chronic kidney disease, stage 3 unspecified; I12.9 Hypertensive chronic kidney disease with stage 1 through stage 4 chronic kidney disease, or unspecified chronic kidney disease; Z79.4 Long term (current) use of insulin; E78.2 Mixed hyperlipidemia; G47.33 Obstructive sleep apnea (adult) (pediatric); Z99.89 Dependence on other enabling machines and devices; E11.22 Type 2 diabetes mellitus with diabetic chronic kidney disease; E55.9 Vitamin D deficiency, unspecified; E53.8 Deficiency of other specified B group vitamins; Z96.651 Presence of right artificial knee joint; Z96.611 Presence of right artificial shoulder joint
CPT/HCPCS: 71046; 99213; G0463

== ENCOUNTER 2025-01-20 11:11 | Outpatient (CLI) | payer MEDICARE, OTHER, SELFPAY ==
--- NOTE | ~2025-01-20 | DEXA_ITS ---
Bone Density Report Name: MARILYN BOX Age: 74 Sex: Male Ethnicity: White Date of : 1950 Indication: screening for osteoporosis; height loss; cancer; Referring Provider: ROBIN DANGELO Study: Bone densitometry was performed. Exam Date: January 20, 2025 Accession number: [id number] Bone Density: Region BMD T-score Z-score Classification AP Spine(L1, L2) 1.108 0.5 1.5 Normal Femoral Neck (Left) 0.989 0.4 1.8 Normal Total Hip (Left) 1.127 0.6 1.5 Normal Femoral Neck (Right) 0.994 0.5 1.9 Normal Total Hip (Right) 1.084 0.3 1.2 Normal Total Hip Mean 1.105 0.5 1.4 Normal World Health Organization criteria for BMD impression classify patients as: Normal (T-score at or above -1.0), Osteopenia (T-score between -1.0 and -2.5), or Osteoporosis (T-score at or below -2.5). 10-year Fracture Risk: FRAX not reported because: All T-scores for Spine Total, Hip Total, Femoral Neck at or above -1.0 Previous Exams: -- Region Exam Age BMD T-score BMD Change BMD Change Date g/cm2 vs Baseline vs Previous -- AP Spine (L1-L2) 01/20/2025 74 1.108 0.5 -15.1%* -15.1%* 12/12/2022 72 1.306 2.3 Total Hip(Left) 01/20/2025 74 1.127 0.6 -3.2%* -3.2%* 12/12/2022 72 1.165 0.9 Total Hip(Right) 01/20/2025 74 1.084 0.3 -5.1%* -5.1%* 12/12/2022 72 1.142 0.7 -- *Denotes significance at 95% confidence level, LSC for AP Spine = 0.022 g/cm2, LSC for Total Hip = 0.027 g/cm2 Clinical Information Provided by Patient: Has used the following medications: Vitamin D, Calcium Has the following medical conditions: Cancer Patient maximum height was 71 No regular weight bearing exercise Drinks caffeinated beverages Impression: The patient has normal bone mass. The BMD for the AP Spine (L1-L2) decreased, changing by -15.1% since the last DXA exam. The BMD for the Total Hip(Left) decreased, changing by -3.2% since the last DXA exam. The BMD for the Total Hip(Right) decreased, changing by -5.1% since the last DXA exam. Discussion: BONE DENSITY IS ABOVE THE MINIMUM DESIRABLE LEVEL AT ALL SKELETAL SITES TESTED. This patient?s bone mineral density is above the minimum desirable level (T-score -1.0 or better) at all sites measured. The patient should follow a healthful lifestyle (good nutrition with adequate calcium and vitamin D, and appropriate weight-bearing exercise). Follow-Up: Consider repeating this study in 3 to 4 years to reassess this patient's status, or sooner if there is some new clinical indication. Reported by: CHRISTINE on 01/20/2025 11:57:00 AM. Reviewed, dictated and finalized at location A.
== END 2025-01-20 11:12 | disposition home or self-care (01) ==
PROVIDERS: PCP Family Medicine; Visit Provider Urology
DX: M85.88 Other specified disorders of bone density and structure, other site (principal); Z13.820 Encounter for screening for osteoporosis
CPT/HCPCS: 77080